=== PATIENT | male | born 1955 | race Caucasian/White ===

== ENCOUNTER → 2018-05-28 07:40 | Outpatient (CLI) | payer BC, OTHER, SELFPAY ==
[2018-05-28 08:38] LABS: Anion Gap 8 (5-15); BUN 22 mg/dL (7-18); Calcium,Total 8.7 mg/dL (8.5-10.1); Chloride 105 mmol/L (98-107); Creatinine, Serum 1.05 mg/dL (0.70-1.30); EST Glomerular Filtration Rate 76 mL/min (>60); Est Glom Filt Rate - Afr Amer 92 mL/min (>60); Glucose 149 mg/dL (74-106); Potassium 3.8 mmol/L (3.5-5.1); Sodium Level 140 mmol/L (136-145)
== END ==
PROVIDERS: Family Provider Family Medicine; PCP Family Medicine; Visit Provider Nurse Practitioner Family
DX: E87.6 Hypokalemia (principal); I10 Essential (primary) hypertension
CPT/HCPCS: 36415; 80048

== ENCOUNTER 2018-09-24 09:05 | Day surgery (SDC) | payer BC, OTHER, SELFPAY ==
[2018-09-17 15:19] VITALS: BMI 39.3
--- NOTE | 2018-09-17 16:15 | RAD_ITS ---
STUDY: X-RAY CHEST REASON FOR EXAM: Male, 63 years old. Generator change. TECHNIQUE: PA and lateral views of the chest. COMPARISON: Comparison is made with prior study dated March 03, 2013. FINDINGS: The lungs are clear and expanded. There is no demonstrated pleural abnormality. Normal size heart. A left-sided dual-chamber pacemaker is seen. Normal mediastinum and carlos alberto. Normal visualized pulmonary arteries. There is atherosclerotic tortuosity of the aortic arch and descending thoracic aorta. Normal visualized thoracic spine. Normal visualized ribs, clavicles, and shoulders. There is no demonstrated abnormality of the visualized soft tissue structures of the upper abdomen. RAD/Chest PA and Lateral IMPRESSION: No acute abnormality is seen. Electronically Signed: Enmanuel Shah MD at 8:25 EST Tel [phone], Service support ,
[2018-09-17 16:32] LABS: Bacteria 0 SEEN /hpf (None Seen); Mucous, Urine 0 SEEN /hpf (<or=2+); Red Blood Cells-Urine 0 SEEN /hpf (0-5); Squamous Epithelial Cells - UA 0 SEEN /hpf (0-5); White Blood Cells 0 SEEN /hpf (0-5)
[2018-09-17 17:08] LABS: Color, Urine Yellow (Yellow); Glucose, Dipstick Normal (Normal); Ketone-Dipstick Negative (Negative); Leukocyte Esterase-Dipstick Negative /ul (Negative); Nitrite-Dipstick Negative (Negative); Occult Blood-Urine Negative /ul (Negative); Protein-Dipstick Negative (Negative); Specific Gravity, Urine 1.015 (1.002-1.030); Urine Bilirubin Dipstick Negative (Negative); Urine Clarity Clear (Clear); Urine Urobilinogen Normal (Normal)
[2018-09-17 17:20] LABS: Hematocrit 46.6 % (40-54); Hemoglobin 15.4 g/dl (13.0-16.5); Mean Corpuscular Hgb 30.3 pg (27.0-32.0); Mean Corpuscular Volume 91.6 fL (80-94); Mean Platelet Vol. 10.4 fl (6.2-12.0); Platelet Count 183 K/mm3 (150-450); RBC Distribution Width CV 14.6 % (11.6-14.6); RBC Distribution Width SD 49.2 fl (35.1-43.9); Red Blood Count 5.09 M/mm3 (4.6-6.2); White Blood Count 11.6 K/mm3 (4.4-11.0)
[2018-09-17 17:22] LABS: Hemoglobin A1c 7.2 % (4.2-6.3)
[2018-09-17 17:31] LABS: Uric Acid 5.5 mg/dL (3.5-7.2)
[2018-09-17 17:39] LABS: Anion Gap 9 (5-15); BUN 21 mg/dL (7-18); BUN/Creat Ratio 23.1 RATIO (10-20); Calcium,Total 9.2 mg/dL (8.5-10.1); Chloride 103 mmol/L (98-107); Creatinine, Serum 0.91 mg/dL (0.70-1.30); EST Glomerular Filtration Rate 90 mL/min (>60); Est Glom Filt Rate - Afr Amer 108 mL/min (>60); Glucose 106 mg/dL (74-106); Potassium 3.6 mmol/L (3.5-5.1); Sodium Level 139 mmol/L (136-145)
[2018-09-17 18:20] LABS: Scan Indicated on CBC? Y/N NO
[2018-09-17 18:25] LABS: International Normalized Ratio 1.1; Prothrombin Time (Protime)PT. 13.8 SECONDS (11.7-14.9)
[2018-09-23 07:54] VITALS: BMI 39.3
--- NOTE | 2018-09-24 11:40 | CL.IE_ITS ---
Patient: LUIS ALFREDO FIGUEROA Study Date: 09/24/2018 Performing: Yosvany Arias MD : 1955 Age: 63 Gender: male PROCEDURES PERFORMED [id number] REMOVAL+REPLACEMENT PACER-DUAL LEAD INDICATIONS Sinoatrial node dysfunction/Sick sinus syndrome PROCEDURE DETAILS The patient was brought to the Catheterization Lab in the postabsorptive nonsedated state. Infor med consent was obtained prior to the procedure. Local anesthetic was given subcutaneously to the le ft upper chest area with Lidocaine 2%. Incision was made to the left upper chest. PPM generator was r emoved. PPM atrial lead (existing) was checked and tested. PPM ventricular lead (existing) was checke d and tested. PPM generator was attached to the lead(s) and inserted into the pocket. Device pocket w as irrigated with antibiotic. Subcutaneous closure was completed with 3-0 Vicryl. Skin closure was co mpleted with 4-0 Vicryl. Steri-strips applied to Lt chest area. The patient tolerated the procedure well. Estimated Blood Loss: 10 ml's IMPLANTED / EX-PLANTED DEVICES IMPLANTED DEVICE(S): PPM Generator - Software Engineering Analyst: [employer], Model # [employer] MRI DR Pacemaker L111 , Serial # [id number] DEVICE PARAMETERS DEVICE PARAMETERS: Mode- DDD Lower rate- 50 Upper rate- 130 CONCLUSIONS / RECOMMENDATIONS Device Conclusions: Successful implantation of a dual chamber pacemaker battery change and replacemen t Device Recommendations: Follow up with Primary Care Physician PROCEDURE MEDICATIONS Fentanyl 50 mcg IV Versed 1 mg IV Versed 1 mg IV Oxygen: 2 L/min via nasal cannula Antibiotic given in appropriate timeframe. Ancef 2 Gm IV @ 09/24/2018 10:39:44 IV Bolus: .9 NaCl 500 ml total 09/24/2018 11:16:12 Signed By Yosvany Arias MD On 09/24/2018 11:39:43 Yosvany Arias MD
--- OUTSIDE RECORDS SUMMARY | 2018-11-28 16:05 | XMS RPT_ITS ---
:1955 Author Organization OHIP Support Name Relationship Address Phone CAROLINA JOSEFA Unavailable [address] + [place] [address] WOOBR Unavailable [address] [place] [address] JOSEFA FIGUEROA Unavailable [address] + [place] [address] WOOBR Unavailable [address] [place] [address] JOSEFA FIGUEROA Unavailable [address] + [place] [address] WOOBR Unavailable [address] [place] [address] JOSEFA FIGUEROA Unavailable [address] + [place] [address] WOOBR Unavailable [address] [place] [address] JOSEFA FIGUEROA Unavailable [address] + [place] [address] WOOBR Unavailable [address] [place] [address] JOSEFA FIGUEROA Unavailable [address] + [place] [address] JOSEFA FIGUEROA Unavailable [address] + [place] [address] JOSEFA FIGUEROA Unavailable [address] + [place] [address] WOOBR Unavailable [address] [place] [address] ISIDRO FIGUEROAORAH Unavailable [address] + [place] [address] WOOBR Unavailable [address] [place] [address] ISIDRO FIGUEROAORAH Unavailable [address] + [place] [address] WOOBR Unavailable [address] [place] [address] ISIDRO FIGUEROAORAH Unavailable [address] + [place] [address] WOOBR Unavailable [address] [place] [address] ISIDRO FIGUEROAORAH Unavailable [address] + [place] [address] WOOBR Unavailable [address] [place] [address] ISIDRO FIGUEROAORAH Unavailable [address] + [place] [address] WOOBR Unavailable [address] [place] [address] Care Team Providers Name Role Phone REA GREGORIO, MIRNA Jewell Attending Unavailable MIRNA LUCIA MD Referring Unavailable SARY JOYCE, DR. ADELINE Alegria Primary Care Unavailable Bonnie Tao Attending Unavailable Christensen, Adeline Referring Unavailable Hugo, Yosvany Attending Unavailable Hugo, [place] Referring Unavailable Christensen, Adeline Primary Care Unavailable Bonnie Tao Attending Unavailable Christensen, Adeline Referring Unavailable RoofAdeline H Attending Unavailable Christensen, Adeline Referring Unavailable Bonnie Tao Attending Unavailable Christensen, Adeline Referring Unavailable Bonnie Tao Attending Unavailable Christensen, Adeline Referring Unavailable Christensen, Adelnie Primary Care Unavailable Cristina Aly Attending Unavailable Roof, Adeline H Attending Unavailable Christensen, Adeline Referring Unavailable Christensen, Adeline Primary Care Unavailable Bonnie Tao Attending Unavailable Christensen, Adeline Referring Unavailable Christensen, Adeline Primary Care Unavailable Bonnie Tao Attending Unavailable Christensen, Adeline Referring Unavailable Christensen, Adeline Primary Care Unavailable Roof, Adeilne H Attending Unavailable Roof, Adeline H Referring Unavailable Christensen, Adeline Primary Care Unavailable PROBLEMS PROBLEMS DATE TYPE CONDITION / CODE ATTENDING STATUS SOURCE 09/24/2018 Unknown I48.0 - Paroxysmal Hugo, Yosvany Active [place] [facility] fibrillation / Hospital I48.0(ICD-10) Repository 09/24/2018 Unknown I49.5 - Sick sinus Hugo, Yosvany Active [place] syndrome / Community I49.5(ICD-10) Hospital Repository 09/24/2018 Unknown Z95.0 - Presence Hugo, Yosvany Active [place] of cardiac [facility] pacemaker / Hospital Z95.0(ICD-10) Repository 09/24/2018 Unknown R55 - Syncope and Hugo, [place] Active [place] collapse / Community R55(ICD-10) Hospital Repository 09/24/2018 Unknown 274.9 - Gout, Hugo, [place] Active [place] unspecified / Community 274.9(ICD-9) Hospital Repository 09/24/2018 Unknown M10.9 - Gout, Hugo, Yosvany Active [place] unspecified / Community M10.9(ICD-10) Hospital Repository 09/24/2018 Unknown 790.21 - Impaired Hugo, Yosvany Active [place] fasting glucose / Community 790.21(ICD-9) Hospital Repository 09/24/2018 Unknown R73.01 - Impaired Hugo, Yosvany Active [place] fasting glucose / Community R73.01(ICD-10) Hospital Repository PROCEDURES PROCEDURES No Procedure Records FoundRESULTS RESULTS PACEMAKER CHECK Observed: 09/21/2018 Status: F Source: [place] 10:07 AM [facility] REPOSITORY [facility] [address] [place] [address]. [address] [place] [address] Pacemaker Check Date of Service: 09/17/18 165 MR#: [id number] Acct: [id number] Name: HEATHERLUIS ALFREDO FAUST Airam Rep #: [id number] : 1955 From: Bonnie Tao Age/Sex: 63/M Location: [facility] [place] Status: Signed Billing Codes Nurse, Teaching, Wound Ck (no charge): Yes 09/17/18 1704 <Electronically signed by Bonnie Tao > Date Bonnie Tao 09/21/18 1007<Electronically signed by Yosvany Arias MD> Amy Signature: Date (if applicable) Yosvany Arias MD CC: CHEST PA AND LATERAL Observed: 09/17/2018 Status: F Source: [place] 4:11 PM [facility] Imaging Services [address] [place] [address] Chest PA and Lateral MR#: [id number] Acct: [id number] Name: LUIS ALFREDO FIGUEROA Rep #: [id number] : 1955 M 63 From: Enmanuel Shah MD PCP: Adeline Christensen MD Status: PRE [facility] [place] Study: Chest PA and Lateral Date of Exam: 09/17/18 Exam# [id number] Ordering Dr: Yosvany Arias MD STUDY: X-RAY CHEST REASON FOR EXAM: Male, 63 years old. Generator change. TECHNIQUE: PA and lateral views of the chest. COMPARISON: Comparison is made with prior study dated March 03, 2013. FINDINGS: The lungs are clear and expanded. There is no demonstrated pleural abnormality. Normal size heart. A left-sided dual-chamber pacemaker is seen. Normal mediastinum and carlos alberto. Normal visualized pulmonary arteries. There is atherosclerotic tortuosity of the aortic arch and descending thoracic aorta. Normal visualized thoracic spine. Normal visualized ribs, clavicles, and shoulders. There is no demonstrated abnormality of the visualized soft tissue structures of the upper abdomen. RAD/Chest PA and Lateral IMPRESSION: No acute abnormality is seen. Electronically Signed: Enmanuel Shah MD at 8:25 EST Tel [phone], Service support , CC: Yosvany Arias MD; Adeline Christensen MD Academic Affairs Manager: Signed 12 LEAD EKG PERFORMED Observed: 09/17/2018 Status: F Source: [place] BY [facility] 3:08 PM [facility] [address] [place] [address] 12 Lead EKG performed by [facility] 09/17/18 1507 MR#: [id number] Acct: [id number] Name: LUIS ALFREDO FIGUEROA Rep #: [id number] : 1955 63 From: Adeline Hitchcock NP-C Attending Dr: Adeline Hitchcock NP Status: DEP AMB Ordering Dr: Adeline Hitchcock Date: 09/17/18 Location: [facility] [place] Sex: M C Admitted: BMS/12 Lead EKG performed by [facility] ECG Report Interpretation Sinus Bradycardia -First degree A-V block Aman = 236-Nonspecific ST depression -Nondiagnostic. ABNORMAL Electronically signed on 09/28/2018 at 13:16 by Yosvany Arias Software Version [id number] 09/28/18 1319 Date Adeline GIORDANO CC: Adeline Christensen MD Date Dictated: 09/17/18 1507 Date Transcribed: 09/17/18 1507 Academic Affairs Manager: INNA Signed URINALYSIS, COMPLETE Collected: 09/17/2018 Status: F Source: [place] 12:30 PM [facility] Order Comment: How was Urine Obtained? OUTREACH REPRESENTATIVE TO SPECIFY TYPE CODE TESTS RESULT OUT OF RANGE REFERENCE UNITS LAB L400.3000 Yellow COLOR Normal Yellow LAB L400.3050 Clear Normal CLARITY Clear LAB L400.3200 Normal mg/dl Normal GLUCOSE, UR Normal LAB L400.3300 Negative mg/dL Normal BILIRUBIN URINE Negative LAB L400.3400 Negative mg/dl Normal KETONE UR Negative LAB L400.3465 1.002-1.030 Normal SP.GR. DIPSTX 1.015 LAB L400.3550 5.0 - 8.0 pH UR Normal 6.0 LAB L400.3600 Negative mg/dl PROT Normal DIPSTX Negative LAB L400.3700 Normal mg/dl Normal UROBILI Normal LAB L400.3750 Negative Normal NITRITE UR Negative LAB L400.3780 Negative /ul Normal OCCULT BLOOD-UR Negative LAB L400.3800 Negative /ul LEUK Normal ESTERASE Negative LAB L400.4050 0-5 /hpf WBC 0 Normal SEEN LAB L400.4100 0-5 /hpf 0 Normal RBC-UA SEEN LAB L400.4150 0-5 /hpf SQUAM 0 Normal EPI SEEN LAB L400.4300 None Seen /hpf 0 Normal BACTERIA SEEN LAB L400.4350 <or=2+ /hpf 0 Normal MUCUS, URINE SEEN Performed By: #### L400.0001 #### [facility] [address] [place], [address] HEMOGLOBIN A1C Collected: 09/17/2018 Status: F Source: [place] 12:30 PM [facility] TYPE CODE TESTS RESULT OUT OF RANGE REFERENCE UNITS LAB L501.9985 4.2-6.3 % High HGB A1C 7.2 Performed By: #### L501.9985, L501.1400 #### [facility] [address] [place], [address] URIC ACID Collected: 09/17/2018 Status: F Source: [place] 12:30 PM [facility] TYPE CODE TESTS RESULT OUT OF RANGE REFERENCE UNITS LAB L501.1400 3.5-7.2 mg/dL Normal URIC 5.5 Result Comment: The drugs N-Acetylcysteine and Metamizole may falsely depress this assay. Performed By: #### L501.9985, L501.1400 #### [facility] [address] [place], [address] BASIC METABOLIC Collected: 09/17/2018 Status: F Source: [place] PROFILE (BMP) 12:30 PM [facility] TYPE CODE TESTS RESULT OUT OF RANGE REFERENCE UNITS LAB L501.0100 74-106 mg/dL Normal GLU 106 Result Comment: Fasting Glucose result from 100 to 125 mg/dL suggests IMPAIRED HOMEOSTASIS per A.D.A. criteria. Please note revised GLUCOSE reference range effective 2017. LAB L501.1000 7-18 mg/dL High BUN 21 LAB L501.1100 0.70-1.30 mg/dL Normal CREAT,SERUM 0.91 Result Comment: The validity of the calculated GFR AND GFRAA in patients over 70 years has not been determined. Clinical correlation is essential. LAB L501.1110 >60 mL/min Normal EST GFR 90 Result Comment: Non- GFR Calc LAB L501.1115 >60 mL/min Normal EST GFR - AA 108 Result Comment: GFR Calc LAB L501.1300 10-20 RATIO High BUN/CRE 23.1 LAB L501.2200 8.5-10.1 mg/dL CA Normal 9.2 LAB L501.5300 136-145 mmol/L NA Normal 139 LAB L501.5600 3.5-5.1 mmol/L K Normal 3.6 LAB L501.5900 98-107 mmol/L CL Normal 103 LAB L501.6100 21.0-32.0 mmol/L Normal CO2 27.0 LAB L501.6200 5-15 Normal GAP 9 Performed By: #### L500.2500 #### [facility] [address] [place], [address] CBC-COMPLETE BLOOD CNT Collected: 09/17/2018 Status: F Source: [place] NO DIFF 12:30 PM [facility] TYPE CODE TESTS RESULT OUT OF RANGE REFERENCE UNITS LAB L100.1000 4.4-11.0 K/mm3 High WBC 11.6 LAB L100.1200 4.6-6.2 M/mm3 Normal RBC 5.09 LAB L100.1300 13.0-16.5 g/dl Normal HGB 15.4 LAB L100.1400 40-54 % Normal HCT 46.6 LAB L100.1500 80-94 fL Normal MCV 91.6 LAB L100.1600 27.0-32.0 pg Normal MCH 30.3 LAB L100.1700 32-36 g/gl Normal MCHC 33.0 LAB L100.1810 11.6-14.6 % Normal RDW CV 14.6 LAB L100.1820 35.1-43.9 fl High RDW SD 49.2 LAB L100.1900 150-450 K/mm3 Normal PLT 183 LAB L100.2000 6.2-12.0 fl Normal MPV 10.4 Performed By: #### L100.0500 #### [facility] [address] [place], [address] PROTHROMBIN TIME W/INR Collected: 09/17/2018 Status: F Source: [place] 12:30 PM [facility] REPOSITORY TYPE CODE TESTS RESULT OUT OF RANGE REFERENCE UNITS LAB L300.4150 11.7-14.9 SECONDS Normal PROTIME 13.8 LAB L300.4200 Normal INR 1.1 Performed By: #### L300.3900 #### [facility] [address] [place], [address] PACEMAKER CHECK Observed: 08/21/2018 Status: F Source: [place] 11:46 AM [facility] [address] [place] [address] Pacemaker Check Date of Service: 08/20/18 0953 MR#: [id number] Acct: [id number] Name: LUIS ALFREDO FIGUEROA Airam Rep #: [id number] : 1955 From: Bonnie Tao Age/Sex: 63/M Location: [facility] [place] Status: Signed Billing Codes PM Device Codes: PM Dev Prog Eval, Dual 08/20/18 0954 <Electronically signed by Bonnie Tao > Date Bonnie Tao 08/21/18 1146<Electronically signed by Yosvany Arias MD> Cosignginny Signature: Date (if applicable) Yosvany Arias MD CC: BASIC METABOLIC Collected: 05/28/2018 Status: F Source: [place] PROFILE (BMP) 7:43 AM [facility] TYPE CODE TESTS RESULT OUT OF RANGE REFERENCE UNITS LAB L501.0100 74-106 mg/dL High GLU 149 Result Comment: Fasting Glucose result greater than or equal to 126 mg/dL suggests DIABETES MELLITUS per A.D.A. criteria. Please note revised GLUCOSE reference range effective 2017. LAB L501.1000 7-18 mg/dL High BUN 22 LAB L501.1100 0.70-1.30 mg/dL Normal CREAT,SERUM 1.05 Result Comment: The validity of the calculated GFR AND GFRAA in patients over 70 years has not been determined. Clinical correlation is essential. LAB L501.1110 >60 mL/min Normal EST GFR 76 Result Comment: Non- GFR Calc LAB L501.1115 >60 mL/min Normal EST GFR - AA 92 Result Comment: GFR Calc LAB L501.1300 10-20 RATIO High BUN/CRE 21.0 LAB L501.2200 8.5-10.1 mg/dL CA Normal 8.7 LAB L501.5300 136-145 mmol/L NA Normal 140 LAB L501.5600 3.5-5.1 mmol/L K Normal 3.8 LAB L501.5900 98-107 mmol/L CL Normal 105 LAB L501.6100 21.0-32.0 mmol/L Normal CO2 27.0 LAB L501.6200 5-15 Normal GAP 8 Performed By: #### L500.2500 #### [facility] [address] [place], [address] PACEMAKER CHECK Observed: 05/22/2018 Status: F Source: [place] 2:06 PM [facility] [address] [place] [address] Pacemaker Check Date of Service: 05/20/18 174 MR#: [id number] Acct: [id number] Name: LUIS ALFREDO FIGUEROA Airam Rep #: [id number] : 1955 From: Bonnie Tao Age/Sex: 63/M Location: [facility] [place] Status: Signed Billing Codes PM Device Codes: PM Dev Prog Hamilton, Dual 05/20/18 1744 <Electronically signed by Bonnie Tao > Date Bonnie Tao 05/22/18 1406<Electronically signed by Yosvany Arias MD> Cosigner Signature: Date (if applicable) Yosvany Arias MD CC: PACEMAKER CHECK Observed: 02/25/2018 Status: F Source: [place] 7:46 AM [facility] [address] [place] [address] Pacemaker Check Date of Service: 02/17/18 1649 MR#: [id number] Acct: [id number] Name: LUIS ALFREDO FIGUEROA Rep #: [id number] : 1955 From: Bonnie Tao Age/Sex: 63/M Location: [facility] Status: Signed Comments Summary Comments: Dual Chamber Pacemaker Evaluation: See attached scanned rpg programmer report. Interrogation shows 23 MS episodes, 0% total time, or 15.9 mins and no VHR episodes since 11/11/17. Stored e-grams show atrial flutter with appropriate MS. Left pectoral pocket/incision w/o s/s of infection or erosion. Pt offers no cardiac complaints. Presenting rhythm shows Sinus Bradycardia @ 57 bpm. DESIGN TEACHER=24%. Estimated battery life <0.5yrs. Lead impedances, sensing and pace/sense thresholds remain stable. No parameter changes made. Counters cleared. Next f/u appt scheduled for in 3 mos d/t device approaching DEVAN. Device Device Date Interviewed: 02/17/18 Follow-up Location: in office Interview Reason: routine follow up Rack Cleaner: gBox Name: Insignia Plus Model: 1298 Serial #: [id number] Implant Date: 02/10/08 Year(s): 10 Implant Physician: Dr. Canelo Sim/[facility] Patient Characteristics Atrial Indication: Paroxysmal atrial fibrillation, sick sinus syndrome Patient Substrate: Syncope Ejection fraction %: 60 to 64 (01/23/2014) By: Echo Underlying rhythm: Sinus rhythm Pacemaker Dependent: No Device Characteristics Device: Dual Chamber Type: Pacemaker Remote Follow-Up: No Device Physical Exam Yes Incision well healed Leads Lead #1 Rack Cleaner Lead 1: [employer] Model Lead 1: 1699TC Serial# Lead 1: [id number] Date Implanted Lead 1: 02/10/08 Position Lead 1: RA Lead #2 Rack Cleaner Lead 2: Guidant Model Lead 2: 4136 Serial# Lead 2: [id number] Date Implanted Lead 2: 02/10/08 Position Lead 2: RV Diagnostics Pacing % RA Pacin % RV Pacin Mode Switching Total # Episodes: 23 % Mode switched: 0 Arrhythmias Non-Sust Episodes: 0 Taco Settings Bradycardia Mode and Timing Settings Pacemaker Mode: DDD Base Rate: 50 bpm Max Track Rate: 130 bpm Max Sensor Rate: 130 bpm Maximum AV Delay: 300 msec Bradycardia Output and Sensitivity Settings Right Atrium: 0.4 msec, 2.0 volts, 0.5 mV sensitivity. Right Ventricle: 0.4 msec, 2.0 volts. Billing Codes PM Device Codes: PM Dev Prog Eval, Dual Assessment AND Plan Problems 1. Presence of cardiac pacemaker Z95.0 Implant February 2008 2. Sick sinus syndrome I49.5 3. Paroxysmal atrial fibrillation I48.0 4. Syncope and collapse R55 02/23/18 1644 <Electronically signed by Bonnie Tao > Date Bonnie Tao 02/25/18 0746<Electronically signed by Yosvany Arias MD> Amy Signature: Date (if applicable) Yosvany Arias MD CC: CARDIOLOGY VISIT Observed: 01/26/2018 Status: F Source: [place] REPORT 9:19 AM [facility] [address] [place] [address] [address] [place] [address] OFFICE VISIT Date of Service: 01/25/18 MR#: [id number] Acct: [id number] Name: LUIS ALFREDO FIGUEROA Rep #: [id number] : 1955 Provider: JAMARI Hitchcock Age/Sex: 62/M Location: [facility] Status: Signed HPI HPI Details: LUIS ALFREDO FIGUEROA, is a 62 M who presents to the office today for a cardiovascular outpatient follow-up. 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 He states after mowing he notices lower blood pressure with systolic in the 90s with lightheadedness and dizziness. Pt denies chest, arm, jaw, or neck discomfort. His exercise tolerance is stable via yardwork. Pt denies symptoms of CHF, palpitations, near syncopal or syncopal episodes. Pt denies worsening edema or claudication issues. Pt. denies orthopnea, PND, fever, chills, blood in urine, blood in stool, myalgia, or unexplainable fatigue. He states some foot numbness. Intake Vital Signs01/25/18 Height 5 ft 7 in 01/25/18 Weight: 253 lb 01/25/18 Body Mass Index (BMI) 39.6 Intake Visit Reasons: 6 M FU Log Roller Required: No Accompanied by: none Is patient in pain?: No Allergies No Known Allergies Allergy (Verified 01/25/18 16:01) Medications [place] Hemifumarate [Tekturna] 150 mg PO QHS 09/13/15 [History Confirmed 01/25/18] Atorvastatin Calcium [Lipitor] 40 mg PO QHS 09/13/15 [History Confirmed 01/25/18] Flecainide [Tambocor] 150 mg PO BID 09/13/15 [History Confirmed 01/25/18] Hydrochlorothiazide [Hctz] 25 mg PO DAILY 09/13/15 [History Confirmed 01/25/18] Metoprolol Tartrate [Lopressor (beta yoav)] 100 mg PO BID 01/07/16 [History Confirmed 01/25/18] Allopurinol 300 mg PO DAILY 09/08/17 [History Confirmed 01/25/18] amlodipine 10 mg tablet 10 mg PO QDAY #30 tab 09/11/17 [Rx Confirmed 01/25/18] lisinopril 40 mg tablet 40 mg PO QDAY #1 tab 10/07/17 [Rx Confirmed 01/25/18] acetaminophen 500 mg tablet 1,000 mg PO Q8 PRN tab 01/25/18 [History] aspirin 325 mg tablet 325 mg PO QDAY tab 01/25/18 [History] potassium chloride ER 20 mEq tablet,extended release(part/cryst) 20 meq PO QDAY 01/25/18 [History Confirmed 01/25/18] Ejection fraction %: 60 to 64 PFSH Medical History Hypokalemia (Chronic) Nicotine abuse (Chronic) Hypertension (Chronic) Palpitations (Chronic) Nonspecific abnormal unspecified cardiovascular function study (Chronic) Encounter for long-term current use of high risk medication (Chronic) White coat syndrome with hypertension (Chronic) Sleep apnea (Chronic) HLD (hyperlipidemia) (Chronic) Sick sinus syndrome (Chronic) Paroxysmal atrial fibrillation (Chronic) Syncope and collapse (Chronic) Chest pain (Acute) Dyspnea (Acute) Shortness of breath (Acute) Surgical History Presence of cardiac pacemaker (Chronic) History of knee replacement (Resolved) Family History Father CAD (coronary artery disease) Myocardial infarction Hypertension Brother Hypertension Cancer CAD (coronary artery disease) Myocardial infarction Social History Smoking Status: Former smoker alcohol intake: current alcohol intake frequency: a few times a month Alcohol type: beer substance use type: does not use caffeine: Yes Type: coffee Number of servings: 2 what type of physical activity do you participate in: none ROS Const Const: Positive for weakness (bilateral knee); negative for fatigue, body ache, fever(s) or chills ENT ENT: Positive for dizziness Cardio Chest Pain: No Palpitations: No Edema: None Muscle aches with walking: None Resp Respiratory: Negative for SOB with activity, SOB at rest, SOB orthopnea\SOB lying down or paroxysmal nocturnal dyspnea GI GI: Negative nausea, black,tarry stools, bright, red blood in stools or vomiting blood/hematemesis : Negative for hematuria or frequent nighttime urination/ nocturia Musc Musc: Positive for muscle weakness (back ); negative for muscle aches/ myalgia Skin Skin: Negative non-healing lesions or rash Neuro Neuro: Positive for weakness (bilateral knee), dizziness and lightheadedness; negative for near syncope, syncope or orthostatic symptoms Endo Endo: Negative for fatigue Allergy Allergy/Immunology: Negative for rash Cardiology Exam Const Appearance: cooperative, healthy appearing, comfortable and no acute distress Nutritional Appearance: obese Orientation: alert, awake and oriented x3 Head Head: normal to inspection Ears: hearing grossly normal bilaterally Nose: external nose normal Face and Sinus: face symmetric Mouth: oral mucosae normal Eyes General: appearance normal, both eyes and all related structures Eyelids: eyelids normal Neck Neck: no JVD and normal visual inspection Carotids: normal carotid upstroke Chest Chest inspection: normal inspection of the chest and normal respiratory effort; negative cough Auscultation: Bilateral: Clear to Auscultation Cardio Rate: regular rate Rhythm: regular rhythm Heart sounds: S1 normal and S2 normal; negative rub or gallop GI GI: normal to inspection and obese Neuro General: alert, awake, oriented x3 and CN's II-XI intact bilaterally Skin Skin: no rashes or lesions noted Extremities Pulses: Normal: Right Posterior Tibial Pulse, Left Posterior Tibial Pulse, Right Radial Pulse, Left Radial Pulse Lower Extremity Edema: None: Bilateral Psych Psychological: normal affect Supplemental Info Pacemaker check from November 2017 showed 79 MS episodes, 0% total time or 3.4 hours, max duration of 14.2 minutes, no VHR episodes, presenting rhythm of AAI pacing at 60 PPM, DESIGN TEACHER=22%, better longevity approximately less than 0.5 years, and lead impedances, sensing and pace/sense thresholds remain stable. Echocardiogram from January 2014 showed an estimate ejection fraction of 60%, normal LV size, mild concentric LVH, mild tricuspid valve insufficiency, RVSP of 32 mmHg, mild to moderately dilated aortic root of 4.5 cm, and when compared to prior study no significant changes. Stress test from March 2013 was a normal exercise myocardial perfusion scan at a moderate to high workload. There was no clinical angina noted, no chest pain noted, and no evidence of ischemia noted. Heart catheterization from February 2008 showed nonobstructive disease in the mid LAD and 25-50% stenosis of proximal RCA. Assessment AND Plan 1. Essential hypertension I10 Plan - PASQUALE Perera Patient's blood pressure initially was elevated and was improved after rechecking. He acknowledges low blood pressure after evening activities such as yardwork. We will adjust the timing of his medication. He will take his hydrochlorothiazide and lisinopril in the morning and his amlodipine after evening yardwork activity. He will continue to monitor his blood pressure and contact our office if he notices continual low blood pressures and/or elevated blood pressures. 2. Paroxysmal atrial fibrillation I48.0 Plan - PASQUALE Perera Patient's most recent pacemaker check from November 2017 showed 79 MS episodes comprising of 0% total time or 3.4 hours. He will continue current medication which include beta-yoav, antiarrhythmic, and aspirin 325 mg. We will continue to monitor this. Orders Orders: 3. Sick sinus syndrome I49.5 Plan - PASQUALE Perera Patient's EKG in office showed sinus bradycardia with first- degree AV block at a rate of 58 bpm. We will not make a medication regimen changes and we will continue to monitor this. 4. Presence of cardiac pacemaker Z95.0 Implant February 2008 Plan - PASQUALE Perera Patient's pacemaker/ICD appears to be functioning appropriately. We will continue to monitor this with routine/scheduled follow-ups. 5. Pure hypercholesterolemia E78.00; E78.0 Plan PASQUALE Nichols Patient will continue current statin medication. Plan Detail Other Medications Discontinued: oxycodone Discontinued Reason: Pt no 5 - 10 mg PO Q4H PRN PRN Mod-Severe PainZ96.652 longer taking (4-10/10) Additional Comments - PASQUALE Perera Discussed the above patient with Dr. Arias, he agrees with the plan of care. Thank you for allowing us to participate in the patients plan of care, if you have any questions please do not hesitate to call. This note was generated using a voice recognition system and there may be incorrect words, spelling or punctuation that were not noted when reviewing the office note prior to saving. Follow Up 7 Months (FUNERAL PLANNER) Coding Level of Care Code Off vis,est,level 3 Diagnoses Essential hypertension I10 Hypertension type: essential hypertension Paroxysmal atrial fibrillation I48.0 Sick sinus syndrome I49.5 Presence of cardiac pacemaker Z95.0 Pure hypercholesterolemia E78.00; E78.0 Hyperlipidemia type: pure hypercholesterolemia Coding Level of Care Code Off vis,est,level 3 Diagnoses Essential hypertension I10 Hypertension type: essential hypertension Paroxysmal atrial fibrillation I48.0 Sick sinus syndrome I49.5 Presence of cardiac pacemaker Z95.0 Pure hypercholesterolemia E78.00; E78.0 Hyperlipidemia type: pure hypercholesterolemia 01/26/18 0800 <Electronically signed by Adeline Hitchcock FOUNDRY SUPERVISOR-C> Date Adeline Hitchcock FOUNDRY SUPERVISOR-C 01/26/18 0919<Electronically signed by Yosvany Arias MD> Cosigner Signature: Date (if applicable) Yosvany Arias MD CC: Adeline Christensen MD 12 LEAD EKG PERFORMED Observed: 01/25/2018 Status: F Source: [place] [facility] 3:56 PM [facility] [address] [place] [address] 12 Lead EKG performed by [facility] 01/25/18 1556 MR#: [id number] Acct: [id number] Name: LUIS ALFREDO FIGUEROA Rep #: [id number] : 1955 62 From: Adeline Hitchcock NP-C Attending Dr: Adeline Hitchcock NP Status: DEP AMB Ordering Dr: Adeline Hitchcock Date: 01/25/18 Location: [facility] [place] Sex: M C Admitted: [facility]/12 Lead EKG performed by [facility] ECG Report Interpretation Sinus Bradycardia -First degree A-V block Aman = 244-consider old anterior infarct. ABNORMAL Electronically signed on 01/27/2018 at 13:16 by Yosvany Arias 01/27/18 1321 Date Adeline Hitchcock FOUNDRY SUPERVISOR-C CC: Adeline Christensen MD Date Dictated: 01/25/181555 Date Transcribed: 01/25/181555 Academic Affairs Manager: INNA Signed PACEMAKER CHECK Observed: 11/26/2017 Status: F Source: [place] 1:31 PM [facility] [address] [place] [address] Pacemaker Check Date of Service: 11/11/17 1115 MR#: [id number] Acct: [id number] Name: LUIS ALFREDO FIGUEROA Rep #: [id number] : 1955 From: Bonnie Toa Age/Sex: 62/M Location: [facility] Status: Signed Comments Summary Comments: Dual Chamber Pacemaker Evaluation: Interrogation shows 79 MS episodes, 0% total time or 3.4 hrs , max duration of episode 14.2 mins and no VHR episodes since 07/28/17. Left pectoral pocket/incision w/o s/s of infection or erosion. Pt offers no cardiac complaints. Presenting rhythm shows AAI pacing @ 60 ppm. DESIGN TEACHER=22%. Battery longevity approx <0.5 yrs. Magnet 90ppm. Lead impedances, sensing and pace/sense thresholds remain stable. No parameter changes made. Counters cleared. Next f/u appt scheduled for in 3 mos. Battery approaching DEVAN. Device Device Date Interviewed: 11/11/17 Follow-up Location: in office Interview Reason: routine follow up Rack Cleaner: gBox Name: Caliper Life Sciencesia Plus Model: 1298 Serial #: [id number] Implant Date: 02/10/08 Year(s): 9 Implant Physician: Dr. Canelo Sim/[facility] Patient Characteristics Atrial Indication: Paroxysmal atrial fibrillation, sick sinus syndrome Patient Substrate: Syncope Ejection fraction %: 60 to 64 (01/23/2014) By: Echo Underlying rhythm: Sinus rhythm Pacemaker Dependent: No Device Characteristics Device: Dual Chamber Type: Pacemaker Remote Follow-Up: No Device Physical Exam Yes Incision well healed Leads Lead #1 Rack Cleaner Lead 1: [employer] Model Lead 1: 1699TC Serial# Lead 1: [id number] Date Implanted Lead 1: 02/10/08 Position Lead 1: RA Lead #2 Rack Cleaner Lead 2: Guidant Model Lead 2: [id number] Serial# Lead 2: [id number] Date Implanted Lead 2: 02/10/08 Position Lead 2: RV Diagnostics Pacing % RA Pacin % RV Pacin Mode Switching Total # Episodes: 79 % Mode switched: 0 Arrhythmias Non-Sust Episodes: 0 Measurements Battery Magnet Rate (bmp): 90 Predicted Remaining Longevity (months or years): 0.5years RA Measurements Signal Amplitude (mV): 2.2 Impedance (Ohms): 340 Threshold Voltage: 1.0 @ PW(ms): 0.4 RV Measurements Signal Amplitude (mV): 8.6 Impedance (Ohms): 610 Threshold Voltage: 0.9 @ PW(ms): 0.4 Taco Settings Bradycardia Mode and Timing Settings Pacemaker Mode: DDD Base Rate: 50 bpm Max Track Rate: 130 bpm Max Sensor Rate: 130 bpm Maximum AV Delay: 300 msec Bradycardia Output and Sensitivity Settings Right Atrium: 0.4 msec, 2.0 volts, 0.5 mV sensitivity. Right Ventricle: 0.4 msec, 2.0 volts. Billing Codes PM Device Codes: PM Dev g Deniseal, Dual 11/26/17 1015 <Electronically signed by Bonnie Tao > Date Bonnie Tao 11/26/17 1331<Electronically signed by Yosvany Arias MD> Cosigner Signature: Date (if applicable) Yosvany Arias MD CC: ALLERGIES ALLERGIES DATE TYPE / CODE NAME / CODE REACTION SEVERITY SOURCE 09/17/2018 Drug No Known Unknown [facility] Allergy/4160 Allergies/F00 [facility] 33473(SNOMED 9677491(RXNOR Repository CT) M) ENCOUNTERS ENCOUNTERS ADMIT/DISCHARGE ACCOUNT NUMBER ADMITTING ENCOUNTER LOCATION SOURCE CLASS 09/30/2018/09/30/19 [id number] Ambulatory BMSBuilding: [place] 19 BMS.[facility] Repository 09/24/2018/09/24/19 [id number] Ambulatory [address] ding:[facility]SP Repository 09/17/2018/09/17/19 [id number] Ambulatory BMSBuilding: [place] 19 BMS.[facility] Repository 09/17/2018/09/17/19 [id number] Ambulatory BMSBuilding: [place] 19 BMS.[facility] Repository 08/19/2018/08/19/20 [id number] Ambulatory BMSBuilding: [place] 18 BMS.[facility] Repository 06/08/2018/09/09/19 [id number] Ambulatory BBuilding:PH [place] 19 Count includes the [facility] Repository 05/28/2018 [id number] Ambulatory [facility] ding:LAB Repository 05/20/2018/05/20/20 [id number] Ambulatory BMSBuilding: [place] 18 BMS.[facility] Repository 02/17/2018/02/18/20 [id number] Ambulatory BMSBuilding: [place] 18 BMS.[facility] Repository 01/25/2018/01/26/20 [id number] Ambulatory BMSBuilding: [place] 18 BMS.[facility] Repository 01/19/2018 [id number] Ambulatory BMS [facility] Repository 11/11/2017/11/12/19 [id number] Ambulatory BMSBuilding: [place] 18 BMS.[facility] Repository PAYERS PAYERS ENCOUNTER GUARANTOR PAYER SUBSCRIBER SOURCE 09/30/2018 LUIS ALFREDO [place] Primary LUIS ALFREDO Bagley [id number] Insurance:ANTHEMPolicy CARLOINADOB: Critical access hospital [place]: [id number] [id number] Repository 22664Ysk: 330) Date:0769-62-83WJ [phone] () [place]4938ZX[place]DD[place], [place] [address]VW: 09/30/2018 Secondary JOSEFA Bagley Insurance:MEDICAL BUKOVITZDOB: [facility] [id number] Hospital Number: Repository [id number] Date:1060-20-65[address] [address]SK: 09/30/2018 Tertiary NOT GIVENUNK [place] Insurance:SELF PAY [facility] Number: Effective Repository Date:2018-09-29 09/24/2018 LUIS ALFREDO Aleg[place] Primary LUIS ALFREDO Alegria [place] [id number] Insurance:ANTHEMPolicy BUKOVITZDOB: Critical access hospital Number: [id number] [id number] Repository [address]Diq: ([phone]) Date:0252-07-04YQ [phone] () [address] [place] [address]GC: 09/24/2018 Secondary JOSEFA M [place] Insurance:MEDICAL BUKOVITZDOB: [facility] [id number] Hospital Number: Repository [id number] Date:9974-24-22EP [address] [place] [address]MG: 09/24/2018 Tertiary NOT GIVENUNK [place] Insurance:SELF PAY [facility] Number: Effective Repository Date:2018-09-03 09/17/2018 LUIS ALFREDO [place] Primary LUIS ALFREDO Alegria [place] [id number] Insurance:ANTHEMPolicy BUKOVITZDOB: Critical access hospital Number: [id number] [id number] Repository [address]Xwh: 330) Date:1465-17-30OK [phone] () [place]857[address]OVHLFHD, [place] [address]FE: 09/17/2018 Secondary Josefa M [place] Insurance:MEDICAL BukovitzDOB: [facility] [id number] Hospital Number: Repository [id number] Date:0684-58-07ED [address] [place] [phone]: 09/17/2018 Tertiary NOT GIVENUNK [place] Insurance:SELF PAY [facility] Number: Effective Repository Date:2018-08-19 09/17/2018 LUIS ALFREDO Alegria Primary LUIS ALFREDO Alegria [place] [id number] Insurance:ANTHEMPolicy BUKOVITZDOB: Critical access hospital Number: [id number] [id number] Repository [address]300[address]Rmd: (330) Date:2332-78-86VG [phone] () [address] [place] [address]TQ: 09/17/2018 Secondary Josefa M [place] Insurance:MEDICAL BukovitzDOB: [facility] [id number] Hospital Number: Repository [id number] Date:5299-55-22DX [address] [place] [address]WT: 09/17/2018 Tertiary NOT GIVENUNK [place] Insurance:SELF PAY [facility] Number: Effective Repository Date:2018-08-19 08/19/2018 LUIS ALFREDO A[place] Primary LUIS ALFREDO Alegria [place] [id number] Insurance:ANTHEMPolicy BUKOVITZDOB: Critical access hospital Number: [id number] [id number] Repository 117[address]Wbz: (330) Date:4749-32-63BX [phone] () [id number] [place] [address]IK: 08/19/2018 Secondary Josefa M [place] Insurance:MEDICAL BukovitzDOB: [facility] [id number] Hospital Number: Repository [id number] Date:1690-54-69UG [address] [place] [address]EW: 08/19/2018 Tertiary NOT GIVENUNK [place] Insurance:SELF PAY [facility] Number: Effective Repository Date:2018-08-19 06/08/2018 LUIS ALFREDO A[place] Primary LUIS ALFREDO [facility] BUKOVITZDOB: Insurance:ANTHEM BLUE BUKOVITZDOB: [facility] [id number] [facility] [id number] [place] [address] Number: [address] [place], [place] [id number] [place], [place] [address]Krg: (330) Date:2018-05-28 73[address]Oxw: 1840-20-61Fugl [phone] ()Tel: ([phone]) Name:[facility] BOX () () [id number] [place] [phone] () [address]NM: 06/08/2018 Secondary [facility] Health Insurance:MEDICAL BUKOVITZDOB: [facility] [id number] Repository Number: [address] [place] [address] [id number] [place], [place] Date:2018-05-28 [address]Kgf: [phone] [id number] [phone] Name:[facility] BOX ()Tel: 000 [address], [place] [phone] (WP) 10[address]FF: 05/28/2018 LUIS ALFREDO [place] Primary LUIS ALFREDO Airam [place] [id number] Insurance:ANTHEMPolicy BUKOVITZDOB: Critical access hospital Number: [id number] [id number] Repository [address]Kir: (330) Date:8305-20-98BW [phone] () 192588GZQIHYZ, [place] [address]FB: 05/28/2018 Secondary Josefa M [place] Insurance:MEDICAL BukovitzDOB: [facility] [id number] Hospital Number: Repository [id number] Date:9931-42-37DN [address] [place] [phone]: 05/28/2018 Tertiary NOT GIVENUNK [place] Insurance:SELF PAY [facility] Number: Effective Repository Date:2018-05-28 05/20/2018 LUIS ALFREDO A[place] Primary LUIS ALFREDO Airam [place] [id number] Insurance:ANTHEMPolicy BUKOVITZDOB: Critical access hospital Number: [id number], [place] [id number] Repository [address]Vhc: 330) Date:4471-67-72PO [phone] () 318740CHXXJNW, [place] [address]GH: 05/20/2018 Secondary Josefa M [place] Insurance:MEDICAL BukovitzDOB: [facility] [id number] Hospital Number: Repository [id number] Date:0003-22-36IZ [address] [place] [address]OH: 05/20/2018 Tertiary NOT GIVENUNK [place] Insurance:SELF PAY [facility] Number: Effective Repository Date:2018-05-20 02/17/2018 LUIS ALFREDO [place] Primary LUIS ALFREDO Alegria [place] [id number] Insurance:ANTHEMPolicy BUKOVITZDOB: Critical access hospital Number: [id number], [place] [id number] Repository [address]Rro: 330) Date:7343-92-14UB [phone] () [id number] [place] [address]YM: 02/17/2018 Secondary Josefa M [place] Insurance:MEDICAL BukovitzDOB: [facility] [id number] Hospital Number: Repository [id number] Date:7234-31-31DZ [address] [place] [address]OE: 02/17/2018 Tertiary NOT GIVENUNK [place] Insurance:SELF PAY [facility] Number: Effective Repository Date:2018-02-17 01/25/2018 LUIS ALFREDO [place] Primary LUIS ALFREDO Alegria [place] [id number] Insurance:ANTHEMPolicy BUKOVITZDOB: Critical access hospital Number: [id number], [place] [id number] Repository [address]Jiq: (330) Date:7826-35-56AJ [phone] () [id number] [place] [address]WD: 01/25/2018 Secondary Josefa M [place] Insurance:MEDICAL BukovitzDOB: [facility] [id number] Hospital Number: Repository [id number] Date:0117-82-07GF [address] [place] [address]GO: 01/25/2018 Tertiary NOT GIVENUNK [place] Insurance:SELF PAY [facility] Number: Effective Repository Date:2018-01-25 01/19/2018 LUIS ALFREDO A[place] Primary LUIS ALFREDO Alegria [place] [id number] Insurance:ANTHEMPolicy BUKOVITZDOB: Community [facility] Number: [id number], [place] [id number] Repository [address]Nmb: (330) Date:0223-81-14EL [phone] () [address] [place] [address]ON: 01/19/2018 Secondary Josefa M [place] Insurance:MEDICAL BukovitzDOB: [facility] [id number] Hospital Number: Repository [id number] Date:4922-78-74FL [address] [place] [address]TR: 01/19/2018 Tertiary NOT GIVENUNK [place] Insurance:SELF PAY [facility] Number: Effective Repository Date:2018-01-19 11/11/2017 LUIS ALFREDO [place] Primary LUIS ALFREDO [place] [id number] Insurance:ANTHEMPolicy BUKOVITZDOB: Critical access hospital Number: [id number], [place] [id number] Repository [address]Odv: (330) Date:1791-29-55SF [phone] () [id number] [place] [address]VF: 11/11/2017 Secondary Josefa M [place] Insurance:MEDICAL BukovitzDOB: [facility] [id number] Hospital Number: Repository [id number] Date:3757-83-16AP [address] [place] [phone]: 11/11/2017 Tertiary NOT GIVENUNK [place] Insurance:SELF PAY [facility] Number: Effective Repository Date:2017-11-09
== END 2018-09-24 13:05 | disposition home or self-care (01) ==
LOC: CLSP 09:06
PROVIDERS: Family Provider Family Medicine; PCP Family Medicine; Referring Provider Internal Medicine Cardiovascular Disease; Visit Provider Internal Medicine Cardiovascular Disease
DX: I49.5 Sick sinus syndrome (principal); I10 Essential (primary) hypertension; I48.0 Paroxysmal atrial fibrillation; G47.33 Obstructive sleep apnea (adult) (pediatric); E78.5 Hyperlipidemia, unspecified; R00.2 Palpitations; E78.00 Pure hypercholesterolemia, unspecified; Z79.899 Other long term (current) drug therapy; Z87.891 Personal history of nicotine dependence; Z95.0 Presence of cardiac pacemaker
CPT/HCPCS: 33228; 36415; 71046; 80048; 81001; 83036; 84550; 85027; 85610; 99152; 99153; J7040; J7050

== ENCOUNTER → 2019-04-04 16:20 | Outpatient (CLI) | payer OTHER, SELFPAY ==
[2018-09-23 07:54] VITALS: BMI 39.3
[2019-04-04 18:13] LABS: BUN 18 mg/dL (7-18); BUN/Creat Ratio 15.5 RATIO (10-20); Calcium,Total 9.3 mg/dL (8.5-10.1); Creatinine, Serum 1.16 mg/dL (0.70-1.30); EST Glomerular Filtration Rate 67 mL/min (>60); Est Glom Filt Rate - Afr Amer 81 mL/min (>60); Glucose 92 mg/dL (74-106); Magnesium 2.1 mg/dL (1.6-2.6); Potassium 3.1 mmol/L (3.5-5.1); Sodium Level 141 mmol/L (136-145)
[2019-04-04 18:14] LABS: Anion Gap 10 (5-15); Chloride 103 mmol/L (98-107)
== END ==
PROVIDERS: Family Provider Family Medicine; PCP Family Medicine; Referring Provider Internal Medicine Cardiovascular Disease; Visit Provider Internal Medicine Cardiovascular Disease
DX: I49.5 Sick sinus syndrome (principal); I48.0 Paroxysmal atrial fibrillation; R55 Syncope and collapse; Z95.0 Presence of cardiac pacemaker
CPT/HCPCS: 36415; 80048; 83735

== ENCOUNTER → 2019-04-07 15:57 | Outpatient (CLI) | payer OTHER, SELFPAY ==
[2019-04-06 16:09] VITALS: BMI 38.5
--- NOTE | 2019-04-07 16:00 | RAD_ITS ---
STUDY: X-RAY - LUMBAR SPINE REASON FOR EXAM: Male, 64 years old. Chronic low back pain TECHNIQUE: 5 view(s) of the lumbar spine were obtained. COMPARISON: None FINDINGS: Normal lumbar lordosis. There is no substantial scoliosis. There is a normal alignment of the vertebrae. Moderate to advanced degenerative disc narrowing at all lumbar levels with extensive spondylitic endplate changes at all levels. Hypertrophic facet joint changes at all levels. Atherosclerotic calcifications of the abdominal aorta and iliac arteries. RAD/L/S Spine Min 4 Views IMPRESSION: Normal alignment of the lumbar spine without fracture deformity, osteolytic or blastic bone lesion. Diffuse advanced degenerative disc narrowing with extensive spondylitic endplate changes at all lumbar levels. Hypertrophic facet arthrosis at all lumbar levels. Electronically Signed: Shikha Moreland MD at 16:25 EDT , Service support ,
== END ==
PROVIDERS: Family Provider Family Medicine; PCP Family Medicine; Referring Provider Family Medicine; Visit Provider Family Medicine
DX: M54.5 Low back pain (principal)
CPT/HCPCS: 72110

== ENCOUNTER 2019-04-09 10:18 | Emergency (ER) | payer OTHER, SELFPAY ==
[2019-04-06 16:09] VITALS: BMI 38.5
[2019-04-09 10:21] VITALS: BP 149/92; PULSE 54; RESP 14; TEMP 36.3; O2SAT 99; BMI 38.8
--- NOTE | 2019-04-09 10:57 | ED.DCSUM_ITS ---
History of Present Illness <Jmain Pierre - Last Filed: 04/09/19 12:53> Detail of Chief Complaint: Blood toilet with normal BM this morning Informant: Patient Onset: Today Current Severity: - - gone Worsened by: Nothing Relieved by: Nothing Narrative: Emanuel is a 64-year-old male who presents with possible GI bleeding. He had a normal bowel movement and voided while sitting on the commode this morning and noted blood in the bowl. His stools normal color. He denies fever or chills or dysuria or abdominal pain or nausea or vomiting. He is been having a low back pain and testicular pain intermittently for months. He recently had a prostate exam by his primary care provider and lumbar x-rays as an outpatient. He has no known history of hemorrhoids. Prior similar symptoms: No Recent Illness/Hospitalization: No <WendyKarina - Last Filed: 04/09/19 18:00> Chief Complaint: GI Bleed Past Medical History <Jamin Pierre - Last Filed: 04/09/19 12:53> Smoking Status: Current some day smoker <WendyKarina - Last Filed: 04/09/19 18:00> - Allergies and Home Meds Allergies/Adverse Reactions: Allergies No Known Allergies Allergy (Verified 04/09/19 10:20) Primary Care Physician: Willis Christensen MD [Primary Care Provider] - Review of Systems General: Denies: Chills, Fever Eyes: Denies: Visual changes - left, Blurred vision - left Cardiovascular: Denies: Chest pain, Palpitations, Heart racing Respiratory: Denies: Dyspnea, Cough, Sputum Gastrointestinal: Reports: - - Bright red blood with normal colored bowel movement. Denies: Abdominal pain, Nausea, Vomiting, Diarrhea, Constipation, Melena, Hematochezia Genitourinary: Denies: Dysuria, Hematuria, Frequency Musculoskeletal: Reports: Back pain - Intermittent back pain times several months Neurological: Denies: Headache, Weakness, Parasthesia <Karina Nguyen - Last Filed: 04/09/19 18:00> Physical Exam Vital Signs/Narrative: Vital Signs Temp Pulse Resp BP Pulse Ox 04/09/19 10:21 97.4 F L 54 L 14 149/92 H 99 <PierreJamin - Last Filed: 04/09/19 12:53> Vital Signs/Narrative: Vital Signs Temp Pulse Resp BP Pulse Ox 04/09/19 10:21 97.4 F L 54 L 14 149/92 H 99 Inital Vital Signs reviewed: Yes General: Well nourished, Well developed, Obese Head: Normocephalic, Atraumatic Eyes: Perrl, EOMI. Negative for: Pale conjunctiva ENT: Moist mucous membranes, No rhinorrhea Neck: Supple, Nontender Cardiovascular: Regular rate, Regular rhythm, No murmurs Respiratory: No distress, CTA bilaterally, Chest nontender Abdomen: Soft, Nontender, Nondistended Rectal: Guaiac positive - Light brown color Back: Nontender, Normal Inspection Extremities: Nontender, No edema Skin: Normal color, No rash. Negative for: Diaphoresis, Pallor Neurological: Alert, Oriented x3 Psychological: Normal affect, Normal Mood <Karina Nguyen - Last Filed: 04/09/19 18:00> Diagnostic/Tx/Re-eval - Medical Decision Making Evaluate this patient with our FORM GRADER OPERATOR. Patient complaining of some rectal bleeding. Denies being lightheaded or dizzy. He is on aspirin but no other blood thinners. Prior colonoscopy 5 or more years ago was unremarkable. No black stool. He does not feel lightheaded or dizzy. Exam unremarkable. Lungs are clear. Heart regular rhythm. Abdomen is soft. Moving all 4 extremities. No edema. This unremarkable. Normal CBC. Normal UA. Hemoccult positive. But no melena . Impression: Stable lower GI bleed Plan outpatient follow-up for colonoscopy. Return if worse. <Jamin Pierre - Last Filed: 04/09/19 12:53> - Medical Decision Making Stools normal color but occult positive for blood. Hemoglobin was 14.5 and BUN 25 with a normal creatinine of 1.01. Urinalysis revealed 25 leukocytes but no red cells. His blood is coming from the rectum but he is hemodynamically stable. He will follow-up with his PCP and gastroenterology. He denied straining at bowel movement and has no known history of hemorrhoids or abdominal pain or change in bowel habits lately he had no further rectal bleeding in the emergency department. He is a stable GI bleed and can follow-up as an outpatient. He was instructed to return for worsening bleeding or pain. He is agreeable to discharge plan and was discharged in stable condition. Patient is stable GI bleed <Karina Nguyen - Last Filed: 04/09/19 18:00> ED Disposition <Jamin Pierre - Last Filed: 04/09/19 12:53> <Karina Nguyen - Last Filed: 04/09/19 18:00> - Plan for ED Patient: Disposition: Home or Assisted Living Diagnosis: Bright red blood per rectum Instructions: RECTAL BLEED, Stable Referrals: Willis Christensen MD [Primary Care Provider] -
[2019-04-09 11:25] LABS: Bacteria 0 SEEN /hpf (None Seen); Mucous, Urine 0 SEEN /hpf (<or=2+); Red Blood Cells-Urine 0 SEEN /hpf (0-5)
[2019-04-09 11:30] LABS: Absolute Lymphocyte Count 1.45 X10^3/uL (0.83-4.51); Absolute Neutrophil Count 5.4 X10^3/uL (2.0-7.7); Basophil# 0.05 X10^3/uL; Basophil% 0.7 % (0-1); Eosinophil# 0.17 X10^3/uL; Eosinophils% 2.2 % (0-5); Hematocrit 42.9 % (40-54); Hemoglobin 14.5 g/dL (13.0-16.5); Lymphocyte # 1.45 X10^3/ul (4.0); Mean Corp Hgb Conc 33.8 g/dL (32-36); Mean Corpuscular Volume 91.7 fL (80-94); Mean Platelet Vol. 10.6 fl (6.2-12.0); Monocyte# 0.56 X10^3/uL; Monocyte% 7.3 % (0-10); NRBC Flagged by Analyzer 0 % (0-5); Neutrophil # 5.38 X10^3/uL (2.7-7.7); Neutrophil % 70.4 % (47-70); Platelet Count 168 K/mm3 (150-450); RBC Distribution Width CV 13.9 % (11.6-14.6); RBC Distribution Width SD 46.4 fl (35.1-43.9); Red Blood Count 4.68 M/mm3 (4.6-6.2); White Blood Count 7.6 K/mm3 (4.4-11.0)
[2019-04-09 11:31] LABS: Color, Urine Yellow (Yellow); Glucose, Dipstick Normal (Normal); Ketone-Dipstick Negative (Negative); Leukocyte Esterase-Dipstick 25 /ul (Negative); Nitrite-Dipstick Negative (Negative); Occult Blood-Urine Negative /ul (Negative); Protein-Dipstick Negative (Negative); Specific Gravity, Urine 1.015 (1.002-1.030); Urine Bilirubin Dipstick Negative (Negative); Urine Clarity Clear (Clear); Urine Urobilinogen Normal (Normal)
[2019-04-09 11:38] LABS: Anion Gap 6 (5-15); BUN 25 mg/dL (7-18); BUN/Creat Ratio 24.8 RATIO (10-20); Calcium,Total 8.9 mg/dL (8.5-10.1); Chloride 106 mmol/L (98-107); Creatinine, Serum 1.01 mg/dL (0.70-1.30); EST Glomerular Filtration Rate 79 mL/min (>60); Est Glom Filt Rate - Afr Amer 96 mL/min (>60); Estimated Creatinine Clearance 69.08 ml/min; Glucose 154 mg/dL (74-106); Potassium 3.9 mmol/L (3.5-5.1); Sodium Level 140 mmol/L (136-145)
[2019-04-09 11:45] LABS: Squamous Epithelial Cells - UA 0-5 SEEN /hpf (0-5); White Blood Cells 0-5 SEEN /hpf (0-5)
[2019-04-09 12:11] LABS: PSA,Total - Annual Screen 0.96 ng/mL (0.00-4.00)
[2019-04-09 13:19] VITALS: BP 143/95; PULSE 60; RESP 18; O2SAT 97
== END 2019-04-09 13:20 | disposition home or self-care (01) ==
PROVIDERS: Emergency Provider Nurse Practitioner; Family Provider Family Medicine; PCP Family Medicine
DX: K92.2 Gastrointestinal hemorrhage, unspecified (principal); E66.9 Obesity, unspecified; F17.200 Nicotine dependence, unspecified, uncomplicated
CPT/HCPCS: 80048; 81001; 82274; 84153; 85025; 99283; A4216; G0103

== ENCOUNTER → 2019-05-13 10:20 | Outpatient (CLI) | payer OTHER, SELFPAY ==
[2019-05-13 11:17] LABS: Anion Gap 7 (5-15); BUN 17 mg/dL (7-18); BUN/Creat Ratio 16.5 RATIO (10-20); Calcium,Total 8.7 mg/dL (8.5-10.1); Chloride 107 mmol/L (98-107); Creatinine, Serum 1.03 mg/dL (0.70-1.30); EST Glomerular Filtration Rate 77 mL/min (>60); Est Glom Filt Rate - Afr Amer 93 mL/min (>60); Glucose 143 mg/dL (74-106); Magnesium 2.1 mg/dL (1.6-2.6); Sodium Level 142 mmol/L (136-145)
== END ==
PROVIDERS: Family Provider Family Medicine; PCP Family Medicine; Referring Provider Internal Medicine Cardiovascular Disease; Visit Provider Internal Medicine Cardiovascular Disease
DX: E87.6 Hypokalemia (principal)
CPT/HCPCS: 36415; 80048; 83735

== ENCOUNTER → 2019-06-16 10:12 | Outpatient (CLI) | payer OTHER, SELFPAY ==
[2019-06-16 12:25] LABS: Absolute Neutrophil Count 5.8 X10^3/uL (2.0-7.7); Basophil# 0.06 X10^3/uL; Basophil% 0.7 % (0-1); Eosinophil# 0.13 X10^3/uL; Eosinophils% 1.6 % (0-5); Hematocrit 43.7 % (40-54); Hemoglobin 14.4 g/dL (13.0-16.5); Lymphocyte % 19.8 % (19-41); Mean Corpuscular Hgb 30.3 pg (27.0-32.0); Mean Platelet Vol. 10.7 fl (6.2-12.0); Monocyte# 0.48 X10^3/uL; Monocyte% 5.9 % (0-10); NRBC Flagged by Analyzer 0 % (0-5); Neutrophil # 5.79 X10^3/uL (2.7-7.7); Neutrophil % 71.6 % (47-70); Platelet Count 174 K/mm3 (150-450); RBC Distribution Width CV 13.7 % (11.6-14.6); RBC Distribution Width SD 46.2 fl (35.1-43.9); Red Blood Count 4.75 M/mm3 (4.6-6.2); White Blood Count 8.1 K/mm3 (4.4-11.0)
[2019-06-16 12:46] LABS: Hemoglobin A1c 6.5 % (4.2-6.3)
[2019-06-16 12:55] LABS: ALB/GLOB Ratio 1.2 RATIO (0.9-2.4); AST(SGOT) 17 U/L (15-37); Alanine Aminotransfer ALT/SGPT 31 U/L (16-61); Albumin, Serum 3.7 g/dL (3.2-5.0); Alkaline Phosphatase 75 U/L (45-117); Anion Gap 6 (5-15); BUN 25 mg/dL (7-18); BUN/Creat Ratio 23.8 RATIO (10-20); Calcium,Total 8.6 mg/dL (8.5-10.1); Chloride 109 mmol/L (98-107); Cholesterol 116 mg/dL (200); Creatinine, Serum 1.05 mg/dL (0.70-1.30); EST Glomerular Filtration Rate 76 mL/min (>60); Est Glom Filt Rate - Afr Amer 91 mL/min (>60); Globulin 3.1 g/dL (2.2-4.2); Glucose 130 mg/dL (74-106); High Density Lipoprotein 47 mg/dL; Magnesium 2.3 mg/dL (1.6-2.6); Potassium 4.1 mmol/L (3.5-5.1); Protein, Total 6.8 g/dL (6.4-8.2); Sodium Level 142 mmol/L (136-145); Thyroid Stim Hormone (TSH) 0.97 uIU/mL (0.358-3.74); Triglycerides 90 mg/dL; Uric Acid 5.3 mg/dL (3.5-7.2); Very Low Density Lipoprotein 18 mg/dL (5-40)
[2019-06-16 16:43] LABS: Microalbumin,Random Urine 12.8 mg/L (NO RANGE EST.); Microalbumin:Creatinine Ratio 8.7 mg/g CRE (<30 mg/g CRE)
== END ==
PROVIDERS: Family Provider Family Medicine; PCP Family Medicine; Referring Provider Family Medicine; Visit Provider Family Medicine
DX: I48.91 Unspecified atrial fibrillation (principal); E11.9 Type 2 diabetes mellitus without complications; E78.00 Pure hypercholesterolemia, unspecified; M10.9 Gout, unspecified
CPT/HCPCS: 36415; 80053; 80061; 82043; 82570; 83036; 83735; 84443; 84550; 85025

== ENCOUNTER → 2019-06-27 10:26 | Outpatient (CLI) | payer OTHER, SELFPAY ==
[2019-06-27 13:04] LABS: Hemoglobin A1c 6.4 % (4.2-6.3)
[2019-06-27 13:07] LABS: Vitamin B12 452 pg/mL (211-911)
[2019-06-27 13:19] LABS: ALB/GLOB Ratio 1.2 RATIO (0.9-2.4); AST(SGOT) 13 U/L (15-37); Alanine Aminotransfer ALT/SGPT 25 U/L (16-61); Albumin, Serum 3.9 g/dL (3.2-5.0); Alkaline Phosphatase 82 U/L (45-117); Anion Gap 6 (5-15); BUN 21 mg/dL (7-18); BUN/Creat Ratio 21.7 RATIO (10-20); Calcium,Total 9.1 mg/dL (8.5-10.1); Chloride 106 mmol/L (98-107); Creatinine, Serum 0.97 mg/dL (0.70-1.30); EST Glomerular Filtration Rate 83 mL/min (>60); Est Glom Filt Rate - Afr Amer 100 mL/min (>60); Globulin 3.3 g/dL (2.2-4.2); Glucose 129 mg/dL (74-106); Potassium 3.9 mmol/L (3.5-5.1); Protein, Total 7.2 g/dL (6.4-8.2); Sodium Level 139 mmol/L (136-145); T4 Free Direct 1.07 ng/dL (0.76-1.46)
[2019-06-29 22:02] LABS: Vitamin B1, Thiamine 144.4 nmol/L (66.5-200.0)
== END ==
PROVIDERS: Family Provider Family Medicine; PCP Family Medicine; Referring Provider Family Medicine; Visit Provider Family Medicine
DX: G62.9 Polyneuropathy, unspecified (principal); E66.9 Obesity, unspecified; E11.9 Type 2 diabetes mellitus without complications; E04.1 Nontoxic single thyroid nodule
CPT/HCPCS: 36415; 80053; 82607; 83036; 84425; 84439

== ENCOUNTER → 2019-06-30 12:16 | Outpatient (CLI) | payer OTHER, SELFPAY ==
--- NOTE | 2019-06-30 12:20 | US_ITS ---
STUDY: THYROID ULTRASOUND REASON FOR EXAM: Male, 64 years old. Left thyroid nodule felt on physical exam. TECHNIQUE: Ultrasound evaluation of the thyroid was performed with real-time and static muller-scale imaging. COMPARISON: None. FINDINGS: RIGHT LOBE: The right lobe of the thyroid gland measures 4.5 x 2.2 x 1.6 cm. There is a slightly heterogeneous echotexture. There are no demonstrated solid, cystic or complex lesions. LEFT LOBE: The left lobe of the thyroid gland measures 3.4 x 1.7 x 1.4 cm. There is a slightly heterogeneous echotexture. There are no demonstrated solid, cystic or complex lesions. ISTHMUS: The isthmus measures 0.2 cm. The regional lymph nodes are normal. US/Thyroid IMPRESSION: Slight heterogeneity throughout the bilateral thyroid lobes, nonspecific otherwise normal ultrasound examination of the thyroid. No distinct nodule, mass or lymphadenopathy seen. Electronically Signed: Laura Jones MD at 5:52 EDT , Service support ,
== END ==
PROVIDERS: Family Provider Family Medicine; PCP Family Medicine; Referring Provider Family Medicine; Visit Provider Family Medicine
DX: E04.1 Nontoxic single thyroid nodule (principal)
CPT/HCPCS: 76536

== ENCOUNTER → 2019-12-20 14:09 | Outpatient (CLI) | payer OTHER, SELFPAY ==
[2019-12-15 09:21] VITALS: BMI 38.8
[2019-12-20 17:25] LABS: Absolute Lymphocyte Count 1.69 X10^3/uL (0.83-4.51); Absolute Neutrophil Count 8.7 X10^3/uL (2.0-7.7); Basophil# 0.06 X10^3/uL; Basophil% 0.5 % (0-1); Eosinophil# 0.18 X10^3/uL; Eosinophils% 1.6 % (0-5); Hemoglobin 14.8 g/dL (13.0-16.5); Lymphocyte # 1.69 X10^3/ul (4.0); Lymphocyte % 14.7 % (19-41); Mean Corp Hgb Conc 32.2 g/dL (32-36); Mean Corpuscular Volume 93.3 fL (80-94); Mean Platelet Vol. 11.3 fl (6.2-12.0); Monocyte# 0.85 X10^3/uL; Monocyte% 7.4 % (0-10); NRBC Flagged by Analyzer 0 % (0-5); Neutrophil # 8.68 X10^3/uL (2.7-7.7); Neutrophil % 75.5 % (47-70); Platelet Count 192 K/mm3 (150-450); RBC Distribution Width CV 15.4 % (11.6-14.6); RBC Distribution Width SD 52.7 fl (35.1-43.9); Red Blood Count 4.93 M/mm3 (4.6-6.2); White Blood Count 11.5 K/mm3 (4.4-11.0)
[2019-12-20 17:44] LABS: ALB/GLOB Ratio 1.2 RATIO (0.9-2.4); AST(SGOT) 20 U/L (15-37); Alanine Aminotransfer ALT/SGPT 34 U/L (16-61); Alkaline Phosphatase 87 U/L (45-117); Anion Gap 7 (5-15); BUN 21 mg/dL (7-18); Calcium,Total 8.8 mg/dL (8.5-10.1); Chloride 105 mmol/L (98-107); Cholesterol 135 mg/dL (200); Creatinine, Serum 0.95 mg/dL (0.70-1.30); EST Glomerular Filtration Rate 84 mL/min (>60); Est Glom Filt Rate - Afr Amer 102 mL/min (>60); Globulin 3.2 g/dL (2.2-4.2); Glucose 85 mg/dL (74-106); High Density Lipoprotein 64 mg/dL; Magnesium 2.2 mg/dL (1.6-2.6); Protein, Total 7.2 g/dL (6.4-8.2); Sodium Level 141 mmol/L (136-145); Triglycerides 69 mg/dL; Very Low Density Lipoprotein 14 mg/dL (5-40)
[2019-12-20 18:36] LABS: Hemoglobin A1c 6.1 % (4.2-6.3)
== END ==
PROVIDERS: PCP Family Medicine; Referring Provider Family Medicine; Visit Provider Family Medicine
DX: I48.91 Unspecified atrial fibrillation (principal); E78.00 Pure hypercholesterolemia, unspecified; E11.9 Type 2 diabetes mellitus without complications
CPT/HCPCS: 36415; 80053; 80061; 83036; 83735; 85025

== ENCOUNTER → 2020-04-05 12:39 | Outpatient (CLI) | payer OTHER, MEDICARE, SELFPAY ==
[2020-04-05 09:57] VITALS: BMI 34.7
[2020-04-05 13:18] LABS: Absolute Lymphocyte Count 1.99 X10^3/uL (0.83-4.51); Absolute Neutrophil Count 9.7 X10^3/uL (2.0-7.7); Basophil# 0.07 X10^3/uL; Basophil% 0.5 % (0-1); Eosinophil# 0.29 X10^3/uL; Eosinophils% 2.2 % (0-5); Hematocrit 49.1 % (40-54); Hemoglobin 15.7 g/dL (13.0-16.5); Lymphocyte # 1.99 X10^3/ul (4.0); Lymphocyte % 15.3 % (19-41); Mean Corpuscular Hgb 29.8 pg (27.0-32.0); Mean Corpuscular Volume 93.3 fL (80-94); Monocyte# 0.85 X10^3/uL; Monocyte% 6.6 % (0-10); NRBC Flagged by Analyzer 0 % (0-5); Neutrophil % 74.9 % (47-70); Platelet Count 203 K/mm3 (150-450); RBC Distribution Width CV 16.9 % (11.6-14.6); RBC Distribution Width SD 55.1 fl (35.1-43.9); Red Blood Count 5.26 M/mm3 (4.6-6.2)
[2020-04-05 13:43] LABS: BNP,B-Type NATRIURETIC PEPTIDE 796.6 pg/mL (0-100)
[2020-04-05 13:47] LABS: Anion Gap 5 (5-15); BUN 26 mg/dL (7-18); BUN/Creat Ratio 26.4 RATIO (10-20); Calcium,Total 8.9 mg/dL (8.5-10.1); Chloride 111 mmol/L (98-107); Creatinine, Serum 0.98 mg/dL (0.70-1.30); EST Glomerular Filtration Rate 81 mL/min (>60); Est Glom Filt Rate - Afr Amer 98 mL/min (>60); Glucose 103 mg/dL (74-106); Potassium 3.8 mmol/L (3.5-5.1); Sodium Level 142 mmol/L (136-145)
== END ==
PROVIDERS: PCP Family Medicine; Referring Provider Nurse Practitioner Family; Visit Provider Nurse Practitioner Family
DX: E78.5 Hyperlipidemia, unspecified (principal); R06.00 Dyspnea, unspecified; I48.0 Paroxysmal atrial fibrillation; I50.9 Heart failure, unspecified; Z95.0 Presence of cardiac pacemaker; I11.0 Hypertensive heart disease with heart failure
CPT/HCPCS: 36415; 80048; 83880; 85025

== ENCOUNTER → 2020-04-24 10:38 | Outpatient (CLI) | payer OTHER, MEDICARE, SELFPAY ==
[2020-04-05 09:57] VITALS: BMI 34.7
[2020-04-19 11:33] LABS: Anion Gap 3 (5-15); BUN 21 mg/dL (7-18); BUN/Creat Ratio 17.9 RATIO (10-20); Calcium,Total 8.6 mg/dL (8.5-10.1); Chloride 110 mmol/L (98-107); Creatinine, Serum 1.17 mg/dL (0.70-1.30); EST Glomerular Filtration Rate 67 mL/min (>60); Est Glom Filt Rate - Afr Amer 80 mL/min (>60); Glucose 111 mg/dL (74-106); Potassium 3.9 mmol/L (3.5-5.1); Sodium Level 143 mmol/L (136-145)
--- NOTE | 2020-04-24 10:40 | ECHOD_ITS ---
Reason For Study: DYSPNEA, SOB Procedure This was a 2D Doppler, Color Flow transthoracic echocardiogram. Exam performed in department. Left Ventricle Normal LV size. The estimated ejection fraction is 37 %. Moderate global left ventricular systolic dysfunction. There is moderate global hypokinesis of the left ventricle. Right Ventricle Normal RV size. ICD or pacer leads identified within the right ventricle. Normal systolic function. Atria The left atrium is moderately enlarged. Normal right atrium. Mitral Valve Normal mitral valve. Mild-Moderate (1-2+) eccentric mitral valve insufficiency. Tricuspid Valve Normal tricuspid valve. Mild tricuspid valve insufficiency. Pulmonary artery systolic pressure is 36 mmHg. Aortic Valve Trisinus/trileaflet aortic valve. Mild (1+) eccentric aortic valve insufficiency. Pulmonic Valve Normal pulmonic valve. Great Vessels Mild to moderately dilated aortic root. The pulmonary artery is normal size. Normal inferior vena cava. Pericardium/Pleural No pericardial effusion. MMode/2D Measurements & Calculations LVIDd: 4.9 cm IVSd: 1.3 cm Ao root diam: 4.6 cm LVIDs: 3.9 cm LVPWd: 1.2 cm RVDd: 3.9 cm FS: 22.2 % LAV(MOD-bp): 68.3 ml LVAd ap4: 41.6 cm2 SV(MOD-sp4): 59.1 ml LAV(MOD-bp) Indexed: 32.3 ml/m2 EDV(MOD-sp4): 162.7 ml LAV(MOD-sp2): 61.1 ml EDV(sp4-el): 166.5 ml LAV(MOD-sp4): 72.9 ml LVAs ap4: 31.8 cm2 ESV(MOD-sp4): 103.6 ml ESV(sp4-el): 105.5 ml EF(MOD-sp4): 36.3 % EF(sp4-el): 36.6 % SV(sp4-el): 61.0 ml LA A4 area: 23.3 cm2 LA dimension(2D): 4.5 cm RA A4 area: 17.1 cm2 Doppler Measurements & Calculations Ao V2 max: 96.7 cm/sec AI max ethan: 370.5 cm/sec LV V1 max: 80.9 cm/sec Ao max P.7 mmHg AI max P.9 mmHg LV V1 max P.6 mmHg AI dec slope: 131.3 cm/sec2 AI P1/2t: 826.5 msec PA V2 max: 67.2 cm/sec PI end-d ethan: 133.1 cm/sec TR max ethan: 281.8 cm/sec TR max P.6 mmHg Interpretation Summary Normal LV size. The estimated ejection fraction is 37 %. Moderate global left ventricular systolic dysfunction. Mild to moderately dilated aortic root. Mild (1+) eccentric aortic valve insufficiency. Mild-Moderate (1-2+) eccentric mitral valve insufficiency. Compared to previous study, the left ventricular systolic function has worsened.. Ordering Physician: Willis Hitchcock/Yosvany Arias Referring Physician: Willis Hitchcock Performed By: Mehnaz Gardner RDCS
== END ==
PROVIDERS: PCP Family Medicine; Referring Provider Nurse Practitioner Family; Visit Provider Nurse Practitioner Family
DX: R06.00 Dyspnea, unspecified (principal); R06.02 Shortness of breath; T82.190A Other mechanical complication of cardiac electrode, initial encounter; I50.9 Heart failure, unspecified
CPT/HCPCS: 36415; 80048; 93306

== ENCOUNTER → 2020-05-16 05:59 | Outpatient (CLI) | payer OTHER, MEDICARE, SELFPAY ==
[2020-04-05 09:57] VITALS: BMI 34.7
--- NOTE | 2020-05-16 17:58 | STRESSREP ---
Stress Test Report Pharmacologic myocardial perfusion stress test. 65-year-old man with a history of hypertension, paroxysmal atrial fibrillation status post pacemaker placement. Stress protocol: Resting EKG demonstrates sinus rhythm with a rate of 70 bpm ventricular paced. Resting blood pressure was 122/88 mmHg. 0.4 mg of regadenoson was infused per usual protocol followed by rapid venous saline flush injection continuous EKG monitoring was performed. At rest there were no ST or T wave changes noted to suggest abnormal flow reserve and at peak infusion nonspecific ST-T wave changes were noted with no meet the criteria for abnormal flow reserve. The final blood pressure was 122/88. Myocardial perfusion protocol. 11.6 mCi of technetium 99m sestamibi was injected at rest. 0.4 mg of regadenoson was infused per usual protocol. At peak infusion 33.3 mCi of technetium 99m sestamibi was injected stress images were obtained stress and rest images were reconstructed in comparing the short axis vertical long horizontal long axis. Perfusion SPECT analysis: Review of the images demonstrate normal uptake of tracer noted in all areas of the myocardium except for the apex on the stress and resting images. A previous apical infarct cannot be completely excluded. No obvious ischemia is noted. Conclusion: Normal pharmacologic myocardial perfusion stress test.
== END ==
PROVIDERS: PCP Family Medicine; Referring Provider Nurse Practitioner Family; Visit Provider Nurse Practitioner Family
DX: R07.9 Chest pain, unspecified (principal); I50.23 Acute on chronic systolic (congestive) heart failure; I42.8 Other cardiomyopathies; T82.190A Other mechanical complication of cardiac electrode, initial encounter; Z95.0 Presence of cardiac pacemaker; I47.1 Supraventricular tachycardia; E87.6 Hypokalemia; R00.2 Palpitations; E78.5 Hyperlipidemia, unspecified; I49.5 Sick sinus syndrome; I48.0 Paroxysmal atrial fibrillation; F17.200 Nicotine dependence, unspecified, uncomplicated; I11.0 Hypertensive heart disease with heart failure
CPT/HCPCS: 78452; 93017; A9500; A4216; J2785

== ENCOUNTER → 2020-05-21 11:57 | Outpatient (CLI) | payer OTHER, MEDICARE, SELFPAY ==
[2020-05-21 09:07] VITALS: BMI 34.6
[2020-05-21 14:19] LABS: Anion Gap 7 (5-15); BUN 26 mg/dL (7-18); Calcium,Total 9.2 mg/dL (8.5-10.1); Chloride 105 mmol/L (98-107); Creatinine, Serum 1.04 mg/dL (0.70-1.30); EST Glomerular Filtration Rate 76 mL/min (>60); Est Glom Filt Rate - Afr Amer 92 mL/min (>60); Glucose 89 mg/dL (74-106); Potassium 3.7 mmol/L (3.5-5.1); Sodium Level 141 mmol/L (136-145)
== END ==
PROVIDERS: PCP Family Medicine; Referring Provider Nurse Practitioner Family; Visit Provider Nurse Practitioner Family
DX: I42.8 Other cardiomyopathies (principal); Z79.899 Other long term (current) drug therapy
CPT/HCPCS: 36415; 80048

== ENCOUNTER 2020-05-31 06:41 | Day surgery (SDC) | payer OTHER, MEDICARE, SELFPAY ==
[2020-05-21 09:07] VITALS: BMI 34.6
--- NOTE | 2020-05-29 15:25 | RAD_ITS ---
STUDY: X-RAY CHEST REASON FOR EXAM: Male, 65 years old. Pre op heart cath TECHNIQUE: PA and lateral views of the chest. COMPARISON: September 17, 2018 chest x-ray FINDINGS: There is a left-sided pacer with leads overlying the right atrium and ventricle. Lung markings are stable since prior study there is no visualized acute focal infiltrate. There is no demonstrated pleural abnormality. There is borderline cardiomegaly. Normal mediastinum and carlos alberto. Normal visualized pulmonary arteries. There is tortuosity of the aortic arch and descending thoracic aorta. There are diffuse degenerative changes of the visualized thoracic spine. Normal visualized ribs, clavicles, and shoulders. There is no demonstrated abnormality of the visualized soft tissue structures of the upper abdomen.
[2020-05-29 15:58] LABS: Absolute Lymphocyte Count 1.74 X10^3/uL (0.83-4.51); Absolute Neutrophil Count 7.3 X10^3/uL (2.0-7.7); Basophil# 0.05 X10^3/uL; Basophil% 0.5 % (0-1); Eosinophil# 0.16 X10^3/uL; Eosinophils% 1.6 % (0-5); Hematocrit 46.4 % (40-54); Hemoglobin 15.1 g/dL (13.0-16.5); Lymphocyte # 1.74 X10^3/ul (4.0); Lymphocyte % 17.6 % (19-41); Mean Corp Hgb Conc 32.5 g/dL (32-36); Mean Corpuscular Hgb 30.4 pg (27.0-32.0); Mean Corpuscular Volume 93.5 fL (80-94); Monocyte# 0.67 X10^3/uL; Monocyte% 6.8 % (0-10); NRBC Flagged by Analyzer 0 % (0-5); Neutrophil # 7.25 X10^3/uL (2.7-7.7); Neutrophil % 73.1 % (47-70); Platelet Count 196 K/mm3 (150-450); RBC Distribution Width CV 15.8 % (11.6-14.6); RBC Distribution Width SD 53.5 fl (35.1-43.9); Red Blood Count 4.96 M/mm3 (4.6-6.2); White Blood Count 9.9 K/mm3 (4.4-11.0)
[2020-05-30 07:59] VITALS: BMI 34.6
--- NOTE | 2020-05-30 12:09 | PCM.HP.BLA ---
History and Physical Date of Admission: 05/31/20 Details: LUIS ALFREDO FIGUEROA, is a 65 M who presents to the office today for a cardiovascular outpatient follow-up. 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 Gray at [facility] on 11/29/2019, minimal coronary artery disease, and REYMUNDO with CPAP therapy. He presented for routine pacemaker check previously and was noted to have short runs of atrial tachyarrhythmias. His potassium was also noted to be low and he was started on potassium replacement. He expressed shortness of breath at last office visit. He underwent echocardiogram on 04/24/2020. This showed an ejection fraction of 37%. His echocardiogram in January 2014 showed an ejection fraction of 60%. He proceeded with a stress test. This was negative for ischemia. He does acknowledge improvement in his shortness of breath since diuretic therapy. He does acknowledge that his activity level has remained relatively low. He continues to have shortness of breath initially when lying flat and initiating CPAP therapy. Pt denies chest, arm, jaw, or neck discomfort. His exercise tolerance is stable. Pt denies symptoms of lightheadedness, dizziness, near syncopal or syncopal episodes. Pt denies edema or claudication issues. Pt. denies orthopnea, PND, fever, chills, chronic cough, blood in urine, blood in stool, myalgia, or unexplainable fatigue. Both he and feel that symptoms have progressed since 2019 when his generator was changed. Given his reduced ejection fraction, it was recommended to undergo a heart catheterization to evaluate coronary artery disease component. He presents today for such testing. Intake Vital Signs: See EMR Intake Visit Reasons: [facility] Collection Administrator Required: No Is patient in pain?: No Allergies No Known Allergies Allergy (Verified 05/21/20 09:07) Medications See EMR [facility] Social History (Updated 05/21/20 @ 12:08 by Willis Hitchcock BLUEPRINT MAKER, BLUEPRINT MAKER-C) alcohol intake: current alcohol intake frequency: a few times a month Alcohol type: beer substance use type: does not use caffeine: Yes Type: coffee Number of servings: 2 what type of physical activity do you participate in: none ROS Const Const: Negative for fatigue, weakness, body ache, fever(s) or chills ENT ENT: Negative for dizziness Cardio Chest Pain: No Palpitations: Yes Edema: None Muscle aches with walking: None Resp Respiratory: Positive for SOB with activity (Improving) and SOB orthopnea\SOB lying down (Unchanged); negative for SOB at rest, Cough or paroxysmal nocturnal dyspnea GI GI: Negative nausea, vomiting blood/hematemesis, bright, red blood in stools or black,tarry stools : Negative for hematuria or frequent nighttime urination/ nocturia Musc Musc: Negative for muscle aches/ myalgia Skin Skin: Negative non-healing lesions or rash Neuro Neuro: Negative for dizziness or weakness Endo Endo: Negative for fatigue Allergy Allergy/Immunology: Negative for rash Cardiology Exam Const Appearance: cooperative, healthy appearing, comfortable and no acute distress Nutritional Appearance: well nourished and obese Orientation: alert, awake and oriented x3 Head Head: normal to inspection Ears: hearing grossly normal bilaterally Nose: external nose normal Face and Sinus: face symmetric Mouth: oral mucosae normal Eyes General: appearance normal, both eyes and all related structures Eyelids: eyelids normal EOM: EOM intact bilaterally Neck Neck: normal visual inspection and no JVD Carotids: normal carotid upstroke Chest Chest inspection: normal inspection of the chest, symmetric chest movement and normal respiratory effort; negative cough Auscultation: Bilateral: Clear to Auscultation Cardio Rate: regular rate Rhythm: regular rhythm Heart sounds: S1 normal and S2 normal; negative rub, gallop or murmur GI GI: normal to inspection and obese Neuro General: alert, awake, oriented x3 and CN's II-XI intact bilaterally Skin Skin: no rashes or lesions noted Extremities Pulses: Normal: Right Posterior Tibial Pulse, Left Posterior Tibial Pulse, Right Radial Pulse, Left Radial Pulse Lower Extremity Edema: None: Bilateral Psych Psychological: normal affect Assessment & Plan 1. Non-ischemic cardiomyopathy I42.8 Plan Patient's most recent echocardiogram from April 2020 showed an ejection fraction of 37%. He appeared to be in [place] [employer] functional during office appointment on 05/21/2020. However, his activity level has been relatively low. The exact etiology for reduced ejection fraction is unclear at this time. He does acknowledge as strong family history of CHF without obvious etiology. He does acknowledge since reducing his oral intake that his breathing has improved. At this time, he will continue current medical therapy which includes lisinopril, metoprolol tartrate, Lasix, and potassium supplement. He will proceed with heart catheterization to evaluate further. Based on results, further recommendation be made. Alternative phone number: [phone] 2. Paroxysmal atrial tachycardia I47.1 Plan His most recent dual-chamber pacemaker evaluation did reveal 12,298 mode switch episodes comprising of 3% total time. At this time, he will continue current medical therapy which includes flecainide and Eliquis. We will continue to monitor. This was not thought to be the main source of his reduced ejection fraction given that it is comprising at a low amount of 3% total time. 3. Presence of permanent cardiac pacemaker Z95.0 Implant 02/13/2008, Gen change 09/24/18 Plan Remote dual-chamber pacemaker evaluation from 05/03/2020 showed 12,298 mode switch episodes, 3% total time, no NSVT episodes since 01/10/2020. Stored electrograms available for review for mode switch episodes show frequent short bursts of PAT 2 to 6 seconds in duration. Longest episode of 13 seconds. Ventricular paced 98%. Atrial paced 25%. Estimated battery life 6 years. Patient's pacemaker/ICD appears to be functioning appropriately. We will continue to monitor this with routine/scheduled follow-ups. 4. Essential (primary) hypertension I10 Plan Patient's blood pressure is well-controlled. We will continue to monitor. We will not make any medication regimen changes. 5. Hyperlipidemia, unspecified hyperlipidemia type E78.5 Plan Lipid panel from 12/20/2019 showed cholesterol: 135, HDL: 64, LDL: 57, and triglycerides: 69. He will continue current statin medication. Additional Comments Thank you for allowing us to participate in the patients plan of care, if you have any questions please do not hesitate to call. This note was generated using a voice recognition system and there may be incorrect words, spelling or punctuation that were not noted when reviewing the office note prior to saving. Supplemental Info Supplemental Information Echocardiogram from 04/24/2020: Interpretation Summary Normal LV size. The estimated ejection fraction is 37 %. Moderate global left ventricular systolic dysfunction. Mild to moderately dilated aortic root. Mild (1+) eccentric aortic valve insufficiency. Mild-Moderate (1-2+) eccentric mitral valve insufficiency. Compared to previous study, the left ventricular systolic function has worsened. Echocardiogram from 01/23/2014: Interpretation Summary Normal LV size. Left ventricular systolic function is normal. The estimated ejection fraction is 60 %. Mild concentric left ventricular hypertrophy. Mild (1+) tricuspid valve insufficiency. Pulmonary artery systolic pressure is 32 mmHg. Mild to moderately dilated aortic root. Compared to prior study, there is no significant change. Stress test from 05/16/2020: Conclusion: Normal pharmacologic myocardial perfusion stress test. Heart catheterization from February 2008 showed nonobstructive disease in the mid LAD and 25-50% stenosis of proximal RCA. Labs LDL Cholesterol 57 mg/dL (0-130) 12/20/19 HDL Cholesterol 64 mg/dL (40-) 12/20/19 Triglycerides 69 mg/dL (-199) 12/20/19 VLDL Cholesterol 14 mg/dL (5-40) 12/20/19 Diagnostics Echocardiogram 04/24/20 Stress Test Nuclear Medicine 05/16/20 Stress Test 05/16/20 Pacemaker Check 05/03/20
--- NOTE | 2020-05-31 07:01 | HP_ITS ---
HPI HPI History of Present Illness Details: LUIS ALFREDO FIGUEROA, is a 65 M who presents to the office today for a cardiovascular outpatient follow-up. 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 Grya at [facility] on 11/29/2019, minimal coronary artery disease, and REYMUNDO with CPAP therapy. He presented for routine pacemaker check previously and was noted to have short runs of atrial tachyarrhythmias. His potassium was also noted to be low and he was started on potassium replacement. He expressed shortness of breath at last office visit. He underwent echocardiogram on 04/24/2020. This showed an ejection fraction of 37%. His echocardiogram in January 2014 showed an ejection fraction of 60%. He proceeded with a stress test. This was negative for ischemia. He does acknowledge improvement in his shortness of breath since diuretic therapy. He does acknowledge that his activity level has remained relatively low. He continues to have shortness of breath initially when lying flat and initiating CPAP therapy. Pt denies chest, arm, jaw, or neck discomfort. His exercise tolerance is stable. Pt denies symptoms of lightheadedness, dizziness, near syncopal or syncopal episodes. Pt denies edema or claudication issues. Pt. denies orthopnea, PND, fever, chills, chronic cough, blood in urine, blood in stool, myalgia, or unexplainable fatigue. Both he and feel that symptoms have progressed since 2019 when his generator was changed. 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 Is patient in pain?: No Allergies No Known Allergies Allergy (Verified 05/21/20 09:07) Medications Allopurinol 300 mg PO DAILY 09/08/17 [History Confirmed 05/21/20] meloxicam 7.5 mg tablet 7.5 mg PO DAILY 04/06/19 [History Confirmed 05/21/20] apixaban 5 mg tablet 5 mg PO BID #60 tab 12/15/19 [Rx Confirmed 05/21/20] aspirin 81 mg tablet,delayed release 81 mg PO QDAY #90 tab 12/15/19 [Rx Confirmed 05/21/20] Handicap Placard 1 unit .ROUTE DAILY #1 unit 04/05/20 [Rx Confirmed 04/05/20] pyridoxine (vitamin B6) 100 mg tablet 100 mg PO DAILY 04/05/20 [History Confirmed 05/21/20] tizanidine 4 mg tablet 4 mg PO QHS PRN 04/05/20 [History Confirmed 05/21/20] furosemide 40 mg tablet 40 mg PO .COMPLEX #270 tab 04/12/20 [Rx Confirmed 05/21/20] aliskiren 150 mg tablet 150 mg PO QHS #90 tab 04/24/20 [Rx Confirmed 05/21/20] atorvastatin 40 mg tablet 40 mg PO QHS #90 tab 04/24/20 [Rx Confirmed 05/21/20] flecainide 150 mg tablet 150 mg PO BID #180 tab 04/24/20 [Rx Confirmed 05/21/20] lisinopril 40 mg tablet 40 mg PO QDAY #90 tab 04/24/20 [Rx Confirmed 05/21/20] metoprolol tartrate 100 mg tablet 100 mg PO BID #180 tab 04/24/20 [Rx Confirmed 05/21/20] potassium chloride 20 mEq tablet,extended release(part/cryst) 60 meq PO DAILY #270 tab 04/24/20 [Rx Confirmed 05/21/20] amlodipine 5 mg tablet 5 mg PO QDAY tab 05/21/20 [History] [facility] Social History (Updated 05/21/20 @ 12:08 by Willis Hitchcock MOTION DESIGNER, MOTION DESIGNER-C) alcohol intake: current alcohol intake frequency: a few times a month Alcohol type: beer substance use type: does not use caffeine: Yes Type: coffee Number of servings: 2 what type of physical activity do you participate in: none ROS Const Const: Negative for fatigue, weakness, body ache, fever(s) or chills ENT ENT: Negative for dizziness Cardio Chest Pain: No Palpitations: Yes Edema: None Muscle aches with walking: None Resp Respiratory: Positive for SOB with activity (Improving) and SOB orthopnea\SOB lying down (Unchanged); negative for SOB at rest, Cough or paroxysmal nocturnal dyspnea GI GI: Negative nausea, vomiting blood/hematemesis, bright, red blood in stools or black,tarry stools : Negative for hematuria or frequent nighttime urination/ nocturia Musc Musc: Negative for muscle aches/ myalgia Skin Skin: Negative non-healing lesions or rash Neuro Neuro: Negative for dizziness or weakness Endo Endo: Negative for fatigue Allergy Allergy/Immunology: Negative for rash Cardiology Exam Const Appearance: cooperative, healthy appearing, comfortable and no acute distress Nutritional Appearance: well nourished and obese Orientation: alert, awake and oriented x3 Head Head: normal to inspection Ears: hearing grossly normal bilaterally Nose: external nose normal Face and Sinus: face symmetric Mouth: oral mucosae normal Eyes General: appearance normal, both eyes and all related structures Eyelids: eyelids normal EOM: EOM intact bilaterally Neck Neck: normal visual inspection and no JVD Carotids: normal carotid upstroke Chest Chest inspection: normal inspection of the chest, symmetric chest movement and normal respiratory effort; negative cough Auscultation: Bilateral: Clear to Auscultation Cardio Rate: regular rate Rhythm: regular rhythm Heart sounds: S1 normal and S2 normal; negative rub, gallop or murmur GI GI: normal to inspection and obese Neuro General: alert, awake, oriented x3 and CN's II-XI intact bilaterally Skin Skin: no rashes or lesions noted Extremities Pulses: Normal: Right Posterior Tibial Pulse, Left Posterior Tibial Pulse, Right Radial Pulse, Left Radial Pulse Lower Extremity Edema: None: Bilateral Psych Psychological: normal affect Assessment & Plan 1. Non-ischemic cardiomyopathy I42.8 Plan Patient's most recent echocardiogram from April 2020 showed an ejection fraction of 37%. He appears to be in [place] [employer] functional class I today. However, his activity level has been relatively low. The exact etiology for reduced ejection fraction is unclear at this time. He does acknowledge as strong family history of CHF without obvious etiology. He does acknowledge since reducing his oral intake that his breathing has improved. At this time, he will continue current medical therapy which includes lisinopril, metoprolol tartrate, Lasix, and potassium supplement. He will undergo a BMP today to ensure that his kidney function and electrolytes are stable. Based on results, further recommendation be made. Alternative phone number: [phone] Orders Orders: Basic Metabolic Profile (BMP) Today 2. Paroxysmal atrial tachycardia I47.1 Plan His most recent dual-chamber pacemaker evaluation did reveal 12,298 mode switch episodes comprising of 3% total time. At this time, he will continue current medical therapy which includes flecainide and Eliquis. We will continue to monitor. 3. Presence of permanent cardiac pacemaker Z95.0 Implant 02/13/2008, Gen change 09/24/18 Plan Remote dual-chamber pacemaker evaluation from 05/03/2020 showed 12,298 mode switch episodes, 3% total time, no NSVT episodes since 01/10/2020. Stored electrograms available for review for mode switch episodes show frequent short bursts of PAT 2 to 6 seconds in duration. Longest episode of 13 seconds. Ventricular paced 98%. Atrial paced 25%. Estimated battery life 6 years. Patient's pacemaker/ICD appears to be functioning appropriately. We will continue to monitor this with routine/scheduled follow-ups. 4. Essential (primary) hypertension I10 Plan Patient's blood pressure is well-controlled. We will continue to monitor. We will not make any medication regimen changes. 5. Hyperlipidemia, unspecified hyperlipidemia type E78.5 Plan Lipid panel from 12/20/2019 showed cholesterol: 135, HDL: 64, LDL: 57, and triglycerides: 69. He will continue current statin medication. Plan Detail Other Orders Orders: Basic Metabolic Profile (BMP) Today Z79.899 Additional Comments Thank you for allowing us to participate in the patients plan of care, if you have any questions please do not hesitate to call. This note was generated using a voice recognition system and there may be incorrect words, spelling or punctuation that were not noted when reviewing the office note prior to saving. Coding Level of Care Code Off vis,est,level 3 Diagnoses Non-ischemic cardiomyopathy I42.8 Paroxysmal atrial tachycardia I47.1 Presence of permanent cardiac pacemaker Z95.0 Essential (primary) hypertension I10 Hyperlipidemia, unspecified hyperlipidemia type E78.5 ??Hyperlipidemia type: unspecified Coding Level of Care Code Off vis,est,level 3 Diagnoses Non-ischemic cardiomyopathy I42.8 Paroxysmal atrial tachycardia I47.1 Presence of permanent cardiac pacemaker Z95.0 Essential (primary) hypertension I10 Hyperlipidemia, unspecified hyperlipidemia type E78.5 ??Hyperlipidemia type: unspecified Supplemental Info Supplemental Information Echocardiogram from 04/24/2020: Interpretation Summary Normal LV size. The estimated ejection fraction is 37 %. Moderate global left ventricular systolic dysfunction. Mild to moderately dilated aortic root. Mild (1+) eccentric aortic valve insufficiency. Mild-Moderate (1-2+) eccentric mitral valve insufficiency. Compared to previous study, the left ventricular systolic function has worsened. Echocardiogram from 01/23/2014: Interpretation Summary Normal LV size. Left ventricular systolic function is normal. The estimated ejection fraction is 60 %. Mild concentric left ventricular hypertrophy. Mild (1+) tricuspid valve insufficiency. Pulmonary artery systolic pressure is 32 mmHg. Mild to moderately dilated aortic root. Compared to prior study, there is no significant change. Stress test from 05/16/2020: Conclusion: Normal pharmacologic myocardial perfusion stress test. Heart catheterization from February 2008 showed nonobstructive disease in the mid LAD and 25-50% stenosis of proximal RCA. Labs LDL Cholesterol 57 mg/dL (0-130) 12/20/19 HDL Cholesterol 64 mg/dL (40-) 12/20/19 Triglycerides 69 mg/dL (-199) 12/20/19 VLDL Cholesterol 14 mg/dL (5-40) 12/20/19 Diagnostics Echocardiogram 04/24/20 Stress Test Nuclear Medicine 05/16/20 Stress Test 05/16/20 Pacemaker Check 05/03/20
--- NOTE | 2020-05-31 08:45 | CL.D_ITS ---
Patient Name: LUIS ALFREDO FIGUEROA Study Date: 05/31/2020 Performing: Yosvany Arias MD Ht: 66.92 inches 170 cm : 1955 Wt: 220.46 lbs 100 kg Age: 65 Gender: male BSA: 2.11 PROCEDURE(S) PERFORMED [id number]/LV CLINICAL PROFILE AND INDICATIONS Indications: Cardiomyopathy Heart Failure: NYHA Class: 1, Newly Diagnosed: Yes, Heart Failure Type: Systolic Stress/Imaging Date: 05/21/2020Stress Test with SPECT MPI: Negative CAD Presentations: No Sxs, no angina. CONCLUSIONS Normal coronary arteries Cardiomyopathy: Dilated RECOMMENDATIONS Medical therapy DESCRIPTION OF PROCEDURE The patient arrived to the procedure lab. The risks and benefits of the procedure as well as a full d escription of our services here and current unavailability of surgical backup were fully explained to the patient and/or their significant other prior to the catheterization. The Timeout was completed, verifying the correct patient and procedure. The patient's procedural site was prepped and draped in the usual fashion. Local anesthetic was given subcutaneously to right radial region with Lidocaine 2% . Using a modified Seldinger technique, arterial access was obtained via the right radial artery, a 6 Fr sheath was inserted. Left Coronary Artery selective angiography was performed in multiple views u sing a 5 Fr. 4.0 [place] catheter. Right Coronary Artery selective angiography was then performed in mu ltiple views using a 5 Fr. JR 5 catheter. Left Ventriculography was performed in AARON projection using a 5 Fr. Pigtail catheter. LV to AO pullback pressures were then recorded.The arterial sheath was pulled and a TR Band was applied for hemostasis w/ 11ml air CORONARY ANGIOGRAPHY DOMINANCE: Right Dominant LEFT HEART ASSESSMENT Left Ventricular Ejection Fraction: by LV Gram 35 % Global Hypokinesis - Moderate Depressed Left Ventricular systolic function LEFT MAIN: Angiographically normal LEFT ANTERIOR DESCENDING ARTERY: Angiographically normal CIRCUMFLEX ARTERY: Angiographically normal RIGHT CORONARY ARTERY: Angiographically normal COMPLICATIONS No Complications PROCEDURE MEDICATIONS Versed 1 mg IV Fentanyl 50 mcg IV Versed 1 mg IV Oxygen: 2 L/min via nasal cannula SUMMARY OF HEMODYNAMIC DATA Time AIR REST ECG 07:10:44 AO 109/63 (81) SA 08:09:38 LV 102/-4, 1 08:26:36 LV 106/-2, 3 08:26:42 LV 101/0, 4 08:27:25 LVp 105/-2, 6 08:27:34 AOp 110/57 (77) 08:27:39 Signed By Yosvany Arias MD On 05/31/2020 8:45:10 AM Yosvany Arias MD
== END 2020-05-31 10:10 | disposition home or self-care (01) ==
PROVIDERS: PCP Family Medicine; Referring Provider Internal Medicine Cardiovascular Disease; Visit Provider Internal Medicine Cardiovascular Disease
DX: I42.0 Dilated cardiomyopathy (principal); I42.8 Other cardiomyopathies; I47.1 Supraventricular tachycardia; I10 Essential (primary) hypertension; E78.5 Hyperlipidemia, unspecified; Z95.0 Presence of cardiac pacemaker; G47.33 Obstructive sleep apnea (adult) (pediatric); I48.0 Paroxysmal atrial fibrillation; R06.02 Shortness of breath; Z79.01 Long term (current) use of anticoagulants; Z79.1 Long term (current) use of non-steroidal anti-inflammatories (NSAID); Z79.82 Long term (current) use of aspirin; Z82.49 Family history of ischemic heart disease and other diseases of the circulatory system
CPT/HCPCS: 36415; 71046; 85025; 93458; 99152; 99153; J7040; C1769; C1894; Q9967

== ENCOUNTER → 2020-08-10 15:26 | Outpatient (CLI) | payer OTHER, MEDICARE, SELFPAY ==
[2020-08-10 12:15] VITALS: BMI 36.5
== END ==
PROVIDERS: PCP Family Medicine; Referring Provider Physician Assistant; Visit Provider Physician Assistant
DX: Z20.828 Contact with and (suspected) exposure to other viral communicable diseases (principal)
CPT/HCPCS: 87635; U0003

== ENCOUNTER → 2020-08-14 16:14 | Outpatient (CLI) | payer OTHER, SELFPAY ==
[2020-08-14 12:11] VITALS: BMI 36.8
[2020-08-14 17:59] LABS: Anion Gap 6 (5-15); BUN 23 mg/dL (7-18); BUN/Creat Ratio 16.3 RATIO (10-20); Chloride 105 mmol/L (98-107); Creatinine, Serum 1.41 mg/dL (0.70-1.30); EST Glomerular Filtration Rate 54 mL/min (>60); Est Glom Filt Rate - Afr Amer 65 mL/min (>60); Glucose 99 mg/dL (74-106); Potassium 3.4 mmol/L (3.5-5.1); Sodium Level 141 mmol/L (136-145)
== END ==
PROVIDERS: PCP Family Medicine; Referring Provider Internal Medicine Cardiovascular Disease; Visit Provider Internal Medicine Cardiovascular Disease
DX: I42.8 Other cardiomyopathies (principal)
CPT/HCPCS: 36415; 80048

== ENCOUNTER → 2020-09-10 10:46 | Outpatient (CLI) | payer OTHER, MEDICARE, SELFPAY ==
[2020-08-14 12:11] VITALS: BMI 36.8
[2020-09-10 12:55] LABS: Absolute Lymphocyte Count 1.18 X10^3/uL (0.83-4.51); Absolute Neutrophil Count 5.9 X10^3/uL (2.0-7.7); Basophil# 0.04 X10^3/uL; Basophil% 0.5 % (0-1); Eosinophil# 0.18 X10^3/uL; Eosinophils% 2.3 % (0-5); Hematocrit 43.4 % (40-54); Hemoglobin 14.1 g/dL (13.0-16.5); Lymphocyte # 1.18 X10^3/ul (4.0); Lymphocyte % 15.1 % (19-41); Mean Corp Hgb Conc 32.5 g/dL (32-36); Mean Corpuscular Hgb 31.7 pg (27.0-32.0); Mean Corpuscular Volume 97.5 fL (80-94); Mean Platelet Vol. 10.8 fl (6.2-12.0); Monocyte# 0.48 X10^3/uL; Monocyte% 6.2 % (0-10); NRBC Flagged by Analyzer 0 % (0-5); Neutrophil # 5.88 X10^3/uL (2.7-7.7); Neutrophil % 75.4 % (47-70); Platelet Count 164 K/mm3 (150-450); RBC Distribution Width CV 13.9 % (11.6-14.6); RBC Distribution Width SD 50.3 fl (35.1-43.9); Red Blood Count 4.45 M/mm3 (4.6-6.2); White Blood Count 7.8 K/mm3 (4.4-11.0)
[2020-09-10 13:01] LABS: ALB/GLOB Ratio 1.2 RATIO (0.9-2.4); AST(SGOT) 19 U/L (15-37); Alanine Aminotransfer ALT/SGPT 34 U/L (16-61); Albumin, Serum 3.9 g/dL (3.2-5.0); Alkaline Phosphatase 83 U/L (45-117); Anion Gap 4 (5-15); BUN 19 mg/dL (7-18); BUN/Creat Ratio 16.8 RATIO (10-20); Calcium,Total 8.9 mg/dL (8.5-10.1); Chloride 105 mmol/L (98-107); Cholesterol 130 mg/dL (200); Creatinine, Serum 1.13 mg/dL (0.70-1.30); EST Glomerular Filtration Rate 69 mL/min (>60); Est Glom Filt Rate - Afr Amer 84 mL/min (>60); Globulin 3.2 g/dL (2.2-4.2); Glucose 132 mg/dL (74-106); High Density Lipoprotein 62 mg/dL; Magnesium 2.2 mg/dL (1.6-2.6); Potassium 4.1 mmol/L (3.5-5.1); Protein, Total 7.1 g/dL (6.4-8.2); Sodium Level 139 mmol/L (136-145); Triglycerides 49 mg/dL; Very Low Density Lipoprotein 10 mg/dL (5-40)
[2020-09-10 13:18] LABS: Hemoglobin A1c 5.9 % (3.8-5.6)
== END ==
PROVIDERS: PCP Family Medicine; Visit Provider Family Medicine
DX: E11.9 Type 2 diabetes mellitus without complications (principal); I10 Essential (primary) hypertension; I48.91 Unspecified atrial fibrillation; E78.00 Pure hypercholesterolemia, unspecified
CPT/HCPCS: 36415; 80053; 80061; 83036; 83735; 85025

== ENCOUNTER → 2020-11-08 10:43 | Outpatient (CLI) | payer OTHER, SELFPAY ==
[2020-08-14 12:11] VITALS: BMI 36.8
--- NOTE | 2020-11-08 10:45 | ECHOD_ITS ---
Reason For Study: SOB Procedure This was a 2D Doppler, Color Flow transthoracic echocardiogram. Exam performed in department. Left Ventricle Normal LV size. Stage 1 diastolic dysfunction. The estimated ejection fraction is 47 %. Compared to previous study, the left ventricular systolic function has improved.. Mid-Anterior : Mildly hypokinetic. Right Ventricle Normal RV size. ICD or pacer leads identified within the right ventricle. Normal systolic function. Atria Normal left atrium. Normal right atrium. Mitral Valve Normal mitral valve. Mild (1+) eccentric mitral valve insufficiency. Tricuspid Valve Normal tricuspid valve. Mild tricuspid valve insufficiency. Pulmonary artery systolic pressure is 24 mmHg. Aortic Valve Trisinus/trileaflet aortic valve. Mild (1+) aortic valve insufficiency. Great Vessels Mild to moderately dilated aortic root. Pericardium/Pleural No pericardial effusion. MMode/2D Measurements & Calculations RVDd: 4.0 cm Ao root diam: 4.9 cm LAV(MOD-bp): 51.6 ml LAV(MOD-bp) Indexed: 23.6 ml/m2 LAV(MOD-sp2): 64.9 ml LAV(MOD-sp4): 37.1 ml LA A4 area: 14.9 cm2 LA dimension(2D): 3.3 cm RA A4 area: 15.4 cm2 Doppler Measurements & Calculations MV E max jose: 44.6 cm/sec Lat Peak E' Jose: 4.6 cm/sec Med Peak E' Jose: 4.5 cm/sec MV A max jose: 60.1 cm/sec E/E' lat: 9.7 E/E' med: 9.9 MV E/A: 0.74 Ao V2 max: 139.0 cm/sec AI max jose: 439.1 cm/sec LV V1 max: 103.4 cm/sec Ao max P.7 mmHg AI max P.3 mmHg LV V1 max P.3 mmHg AI dec slope: 153.8 cm/sec2 AI P1/2t: 836.0 msec PA V2 max: 82.6 cm/sec TR max jose: 233.0 cm/sec TR max P.7 mmHg Interpretation Summary Normal LV size. Stage 1 diastolic dysfunction. Mild (1+) eccentric mitral valve insufficiency. Pulmonary artery systolic pressure is 24 mmHg. ICD or pacer leads identified within the right ventricle. The estimated ejection fraction is 47 %. Compared to previous study, the left ventricular systolic function has improved.. Ordering Physician: Yosvany Arias Referring Physician: Willis Fish Performed By: Puja Chang RDCS
== END ==
PROVIDERS: PCP Family Medicine; Visit Provider Internal Medicine Cardiovascular Disease
DX: I42.8 Other cardiomyopathies (principal); R06.00 Dyspnea, unspecified; R06.02 Shortness of breath
CPT/HCPCS: 93306

== ENCOUNTER 2020-11-13 09:00 | Outpatient (RCR) | payer OTHER, SELFPAY ==
[2020-08-14 12:11] VITALS: BMI 36.8
[2020-11-13] MEDS: COVID-19 VACC, MRNA(PFIZER)/PF 30 MCG/0.3 ML SYRINGE IM (16:48)
[2020-12-04] MEDS: COVID-19 VACC, MRNA(PFIZER)/PF 30 MCG/0.3 ML SYRINGE IM (16:41)
== END 2021-02-12 23:59 ==
LOC: IMMUN 09:00
PROVIDERS: PCP Family Medicine; Visit Provider Family Medicine
DX: Z23 Encounter for immunization (principal)
CPT/HCPCS: 0001A; 0002A; 91300

== ENCOUNTER → 2020-12-12 11:31 | Outpatient (CLI) | payer OTHER, SELFPAY ==
[2020-12-12 10:31] VITALS: BMI 37.9
[2020-12-12 12:28] LABS: Absolute Lymphocyte Count 1.61 X10^3/uL (0.83-4.51); Absolute Neutrophil Count 6.3 X10^3/uL (2.0-7.7); Basophil# 0.04 X10^3/uL; Basophil% 0.5 % (0-1); Eosinophil# 0.18 X10^3/uL; Eosinophils% 2.1 % (0-5); Hematocrit 42.9 % (40-54); Hemoglobin 14.4 g/dL (13.0-16.5); Lymphocyte # 1.61 X10^3/ul (4.0); Lymphocyte % 18.6 % (19-41); Mean Corp Hgb Conc 33.6 g/dL (32-36); Mean Corpuscular Hgb 32.1 pg (27.0-32.0); Mean Corpuscular Volume 95.5 fL (80-94); Mean Platelet Vol. 10.5 fl (6.2-12.0); Monocyte# 0.47 X10^3/uL; Monocyte% 5.4 % (0-10); NRBC Flagged by Analyzer 0 % (0-5); Neutrophil # 6.28 X10^3/uL (2.7-7.7); Neutrophil % 72.7 % (47-70); Platelet Count 167 K/mm3 (150-450); RBC Distribution Width CV 14.6 % (11.6-14.6); RBC Distribution Width SD 49.7 fl (35.1-43.9); Red Blood Count 4.49 M/mm3 (4.6-6.2); White Blood Count 8.6 K/mm3 (4.4-11.0)
[2020-12-12 12:45] LABS: Anion Gap 4 (5-15); BUN 20 mg/dL (7-18); BUN/Creat Ratio 19.4 RATIO (10-20); Chloride 107 mmol/L (98-107); Creatinine, Serum 1.03 mg/dL (0.70-1.30); EST Glomerular Filtration Rate 77 mL/min (>60); Est Glom Filt Rate - Afr Amer 93 mL/min (>60); Glucose 124 mg/dL (74-106); Magnesium 2.4 mg/dL (1.6-2.6); Potassium 3.6 mmol/L (3.5-5.1); Sodium Level 139 mmol/L (136-145)
[2020-12-12 12:48] LABS: BNP,B-Type NATRIURETIC PEPTIDE 31.3 pg/mL (0-100)
== END ==
PROVIDERS: PCP Family Medicine; Referring Provider Nurse Practitioner Family; Visit Provider Nurse Practitioner Family
DX: R06.00 Dyspnea, unspecified (principal); I42.8 Other cardiomyopathies; E78.5 Hyperlipidemia, unspecified; I48.0 Paroxysmal atrial fibrillation; I49.5 Sick sinus syndrome; I10 Essential (primary) hypertension; Z95.0 Presence of cardiac pacemaker
CPT/HCPCS: 36415; 80048; 83735; 83880; 85025

== ENCOUNTER → 2020-12-18 10:42 | Outpatient (CLI) | payer OTHER, SELFPAY ==
[2020-12-12 10:31] VITALS: BMI 37.9
--- NOTE | 2020-12-18 10:45 | RAD_ITS ---
STUDY: X-RAY - LUMBAR SPINE REASON FOR EXAM: Male, 65 years old. Low back pain TECHNIQUE: 3 view(s) of the lumbar spine were obtained. COMPARISON: None FINDINGS: Normal lumbar lordosis. There is no substantial scoliosis. There is a normal alignment of the vertebrae. There is multilevel endplate spondylosis of the lumbar vertebrae. There is multi-level degenerative disc disease with multi-level disc space narrowing. There is no demonstrated fracture. There is atherosclerotic calcification of the abdominal aorta without a demonstrated aneurysm. RAD/Lumbar Spine 2 or 3 Views IMPRESSION: Degenerative changes of the spine, as detailed above. Electronically Signed: Nik Martinez MD at 11:31 EDT , Service support ,
--- NOTE | 2020-12-18 10:45 | RAD_ITS ---
STUDY: X-RAY - PELVIS AND BILATERAL HIPS REASON FOR EXAM: Male, 65 years old. HIP PAIN TECHNIQUE: AP view of the pelvis.? 2 views of the right hip, and 2 views of the left hip were obtained. COMPARISON: None. FINDINGS: There is a non-specific bowel gas pattern. Normal visualized soft tissue structures. There is narrowing with cortical sclerosis and osteophyte formation of the sacroiliac joint consistent with degenerative osteoarthritic changes. Normal bilateral superior and inferior pubic rami. Normal pubic symphysis. Normal bilateral ischial tuberosities. Normal visualized right femoral head. Normal right acetabulum. There is mild articular joint space narrowing of the right hip. Normal visualized left femoral head. Normal left acetabulum. There is mild articular joint space narrowing of the left hip. RAD/Hips B/L min 2 views w/ Pelvis IMPRESSION: Degenerative changes, no acute findings Electronically Signed: Nik Martinez MD at 11:27 EDT , Service support ,
== END ==
PROVIDERS: PCP Family Medicine; Referring Provider Family Medicine; Visit Provider Family Medicine
DX: M47.819 Spondylosis without myelopathy or radiculopathy, site unspecified (principal); M25.559 Pain in unspecified hip
CPT/HCPCS: 72100; 73521

== ENCOUNTER → 2020-12-21 13:56 | Outpatient (CLI) | payer OTHER, SELFPAY ==
[2020-12-12 10:31] VITALS: BMI 37.9
--- NOTE | 2020-12-21 13:59 | CT_ITS ---
STUDY: CT CHEST WITH CONTRAST REASON FOR EXAM: Male, 65 years old. Dilated aortic root, SOB RADIATION DOSAGE (If Supplied By Facility): CTDIvol = ( 13.82 ) mGy, DLP = ( 699.10 ) mGycm TECHNIQUE: Transaxial imaging was performed following intravenous administration of IV 100ML ISOVUE 300. Multiplanar coronal and sagittal images were reformatted. Individualized dose optimization techniques were used for this CT. COMPARISON: Comparison is made with prior examination dated 06/30/2012. FINDINGS: A left-sided dual-chamber pacemaker is seen. The lungs are normal. There is no demonstrated pleural abnormality. There are calcifications of the coronary arteries. Normal mediastinum. Normal hilar regions. Normal enhanced pulmonary arteries. Aneurysmal dilatation of the ascending thoracic aorta with a transverse dimension of 49.7 mm. There are multi-level degenerative changes of the thoracic spine. There is no demonstrated abnormality of the visualized upper abdomen. CT/Chest WITH Contrast IMPRESSION: Aneurysmal dilatation of the ascending thoracic aorta with a transverse dimension of 49.7 mm. Electronically Signed: Enmanuel Shah MD at 14:37 EDT , Service support ,
== END ==
PROVIDERS: PCP Family Medicine; Referring Provider Nurse Practitioner Family; Visit Provider Nurse Practitioner Family
DX: R06.00 Dyspnea, unspecified (principal); I77.810 Thoracic aortic ectasia; I42.8 Other cardiomyopathies; Z95.0 Presence of cardiac pacemaker
CPT/HCPCS: 71260; Q9967

== ENCOUNTER → 2021-01-08 10:50 | Outpatient (CLI) | payer OTHER, SELFPAY ==
[2020-12-12 10:31] VITALS: BMI 37.9
[2021-01-08 12:21] LABS: Absolute Lymphocyte Count 1.22 X10^3/uL (0.83-4.51); Absolute Neutrophil Count 6.6 X10^3/uL (2.0-7.7); Basophil# 0.03 X10^3/uL; Basophil% 0.3 % (0-1); Eosinophil# 0.17 X10^3/uL; Hematocrit 43.5 % (40-54); Hemoglobin 14.3 g/dL (13.0-16.5); Lymphocyte # 1.22 X10^3/ul (0.83-4.51); Mean Corp Hgb Conc 32.9 g/dL (32-36); Mean Corpuscular Hgb 31.1 pg (27.0-32.0); Mean Corpuscular Volume 94.6 fL (80-94); Mean Platelet Vol. 10.8 fl (6.2-12.0); Monocyte# 0.58 X10^3/uL; Monocyte% 6.7 % (0-10); NRBC Flagged by Analyzer 0 % (0-5); Neutrophil # 6.64 X10^3/uL (2.7-7.7); Neutrophil % 76.4 % (47-70); Platelet Count 174 K/mm3 (150-450); RBC Distribution Width CV 14.6 % (11.6-14.6); RBC Distribution Width SD 50.1 fl (35.1-43.9); White Blood Count 8.7 K/mm3 (4.4-11.0)
[2021-01-08 12:38] LABS: ALB/GLOB Ratio 1.1 RATIO (0.9-2.4); AST(SGOT) 19 U/L (15-37); Alanine Aminotransfer ALT/SGPT 33 U/L (16-61); Alkaline Phosphatase 90 U/L (45-117); Anion Gap 6 (5-15); BUN 20 mg/dL (7-18); BUN/Creat Ratio 19.4 RATIO (10-20); Calcium,Total 9.2 mg/dL (8.5-10.1); Chloride 105 mmol/L (98-107); Cholesterol 150 mg/dL (200); Creatinine, Serum 1.03 mg/dL (0.70-1.30); EST Glomerular Filtration Rate 77 mL/min (>60); Est Glom Filt Rate - Afr Amer 93 mL/min (>60); Globulin 3.5 g/dL (2.2-4.2); Glucose 136 mg/dL (74-106); High Density Lipoprotein 64 mg/dL; Magnesium 2.4 mg/dL (1.6-2.6); Potassium 3.8 mmol/L (3.5-5.1); Protein, Total 7.5 g/dL (6.4-8.2); Sodium Level 139 mmol/L (136-145); Triglycerides 105 mg/dL; Very Low Density Lipoprotein 21 mg/dL (5-40)
[2021-01-08 12:45] LABS: Hemoglobin A1c 6.1 % (3.8-5.6)
== END ==
PROVIDERS: PCP Family Medicine; Referring Provider Family Medicine; Visit Provider Family Medicine
DX: E11.59 Type 2 diabetes mellitus with other circulatory complications (principal); E11.69 Type 2 diabetes mellitus with other specified complication; I48.91 Unspecified atrial fibrillation
CPT/HCPCS: 36415; 80053; 80061; 83036; 83735; 85025

== ENCOUNTER → 2021-06-11 11:02 | Outpatient (CLI) | payer OTHER, SELFPAY ==
[2021-06-11 12:22] LABS: PSA,Total - Annual Screen 1.13 ng/mL (0.00-4.00)
== END ==
PROVIDERS: PCP Family Medicine; Referring Provider Family Medicine; Visit Provider Family Medicine
DX: Z12.5 Encounter for screening for malignant neoplasm of prostate (principal)
CPT/HCPCS: 36415; 84153; G0103

== ENCOUNTER 2021-09-10 17:16 | Outpatient (CLI) | payer OTHER, SELFPAY | END 2021-09-10 23:59 | disposition short-term general hospital (02) | PROVIDERS: PCP Family Medicine; Referring Provider Family Medicine; Visit Provider Nurse Practitioner Family | DX: J06.9 Acute upper respiratory infection, unspecified (principal) | CPT/HCPCS: 87635; U0003; U0005 ==

== ENCOUNTER 2022-03-04 11:41 | Inpatient (IN) | payer OTHER, MEDICARE, SELFPAY ==
[2022-03-04] VITALS (13 sets, daily range): BP systolic 102–127; BP diastolic 56–80; PULSE 68–97; RESP 18–28; TEMP 36.7–39.6; O2SAT 92–99; BMI 34.9; BMI 34.3
--- NOTE | 2022-03-04 11:57 | EKG12_ITS ---
Test Reason : SEIZURE Blood Pressure : / mmHG Vent. Rate : 069 BPM Atrial Rate : 069 BPM P-R Int : 236 ms QRS Dur : 136 ms QT Int : 434 ms P-R-T Axes : 049 -31 038 degrees QTc Int : 465 ms Sinus rhythm with 1st degree A-V block Left axis deviation Left ventricular hypertrophy with QRS widening Nonspecific T wave abnormality Abnormal ECG When compared with ECG of 08-SEP-2017 15:45, QRS duration has increased Nonspecific T wave abnormality now evident in Lateral leads Confirmed by MYRTLE GREGORIO, ORALIA ([id number]), editor at large LEONARD GONZÁLES ([id number]) on 03/11/2022 9:40:41 AM Referred By: VITOR Confirmed By:JONATAN IRAHETA MD
--- NOTE | 2022-03-04 11:57 | CT_ITS ---
STUDY: CT BRAIN WITHOUT CONTRAST REASON FOR EXAM: Male, 67 years old. seizure RADIATION DOSAGE (If Supplied By Facility): CTDIvol = ( 44.99 ) mGy, DLP = ( 812.98 ) mGycm TECHNIQUE: Transaxial CT imaging of the brain was performed without administration of intravenous contrast material. Individualized dose optimization techniques were used for this CT. COMPARISON: No relevant priors. FINDINGS: Normal soft tissue structures. Normal calvarium. There is mild cerebral atrophy with widening of the extra-axial spaces and ventricular dilatation. There are areas of decreased attenuation within the white matter tracts of the supratentorial brain, consistent with microvascular disease changes. Normal basal ganglia and thalami. Normal brainstem. Normal cerebellum. There is no intracranial hemorrhage. There are no findings of an acute ischemic infarction. Normal visualized paranasal sinuses. CT/Brain/Head without Contrast IMPRESSION: Chronic involutional changes of the brain. Electronically Signed: Emanuel Garduno MD at 13:22 EDT ,
--- NOTE | 2022-03-04 11:58 | EDS_ITS ---
HPI <Dr. Bear Vargas DO - Last Filed: 03/04/22 16:02> History of Present Illness Chief Complaint: Seizure Informant: patient, spouse/S.O., EMS and PCP Narrative Narrative: 67-year-old male presented to the emergency room following unresponsive episode. For the past 2 weeks patient has felt very fatigued and has had diarrhea. He had a possible tick bite versus abscess on the left forearm and developed fever and was placed on doxycycline. That has gotten better and is almost through with his doxycycline. His diarrhea is still continuing feels fatigued. He had blood work performed about a week ago. He went to the doctor's office today to follow-up and while sitting in a chair had an unresponsive episode in which his eyes began to stare off in his arms curled up. He was not shaking. notes that he was diaphoretic and pale. This lasted 30 seconds to a minute. Patient was confused and has now returned back to the way he was feeling this morning which is tired. FOR[facility]LY [facility], LATER [facility] <Dr. Bear Vargas DO - Last Filed: 03/04/22 16:02> [facility], LAT[facility] Medical History CHF (congestive heart failure), NYHA class III Chronic systolic (congestive) heart failure Essential (primary) hypertension HLD (hyperlipidemia) Hypokalemia Malfunction of electrode lead of cardiac pacemaker Nicotine dependence Non-ischemic cardiomyopathy Nonobstructive atherosclerosis of coronary artery Nonrheumatic aortic (valve) insufficiency Nonspecific abnormal unspecified cardiovascular function study Palpitations Paroxysmal atrial fibrillation Paroxysmal atrial tachycardia Pericardial effusion (11/06/21) Sick sinus syndrome Sinus node dysfunction Sleep apnea Syncope and collapse White coat syndrome with hypertension Home Medications allopurinol 300 mg tablet 300 mg PO DAILY gout 09/08/17 [History Last Taken 03/04/22] pyridoxine (vitamin B6) 100 mg tablet 100 mg PO DAILY SUPPLEMENT 04/05/20 [History Last Taken 03/04/22] tizanidine 4 mg tablet 4 mg PO QHS PRN muscle spasticity 04/05/20 [History Last Taken Unknown] flecainide 150 mg tablet 150 mg PO BID bp #180 tabs 04/08/21 [Rx Last Taken 03/04/22] atorvastatin 40 mg tablet 40 mg PO QHS cholesterol #90 tabs 05/20/21 [Rx Last Taken 03/03/22] amlodipine 10 mg tablet 10 mg PO DAILY BP 03/04/22 [History Last Taken 03/04/22] aspirin 81 mg tablet,delayed release (Adult Aspirin Regimen) 81 mg PO DAILY HEALTH 03/04/22 [History Last Taken 03/04/22] colchicine 0.6 mg tablet 0.3 mg PO BID GOUT 03/04/22 [History Last Taken 03/04/22] doxycycline hyclate 100 mg capsule 100 mg PO BID INFECTION 03/04/22 [History Last Taken 03/04/22] furosemide 40 mg tablet (Lasix) 20 mg PO BID FLUID 03/04/22 [History Last Taken 03/04/22] lisinopril 40 mg tablet 40 mg PO DAILY BP 03/04/22 [History Last Taken 03/04/22] loperamide 2 mg capsule (Imodium A-D) 2 mg PO Q4H PRN Diarrhea 03/04/22 [History Last Taken 03/04/22] metoprolol tartrate 50 mg tablet 50 mg PO BID HEART 03/04/22 [History Last Taken 03/04/22] potassium chloride 20 mEq tablet,extended release(part/cryst) (Klor-Con M) 20 meq PO DAILY SUPPLEMENT 03/04/22 [History Last Taken 03/04/22] Allergy/AdvReac Type Severity Reaction Status Date / Time No Known Allergies Allergy Verified 03/04/22 11:47 Family History (Updated 03/04/22 @ 21:[address] Marcelle Phillips MD) Father CAD (coronary artery disease) Myocardial infarction Hypertension Brother Hypertension Cancer CAD (coronary artery disease) Myocardial infarction Leukemia Surgical History H/O aortic aneurysm repair (10/14/21) History of aortic valve repair (10/14/21) History of knee replacement History of left heart catheterization (10/11/21) History of radiofrequency ablation procedure for cardiac arrhythmia (02/2008) Presence of permanent cardiac pacemaker (10/14/21) Status post pericardiocentesis (11/07/21) Social History (Updated 03/04/22 @ 21:[address] Marcelle Phillips MD) household members: spouse Smoking Status: Former smoker how long ago did patient quit smoking: Quit 6 months prior, smoked cig socially ~1-3 when with friends since teen. alcohol intake: current alcohol intake frequency: a few times a month Alcohol type: beer substance use type: does not use caffeine: Yes Type: coffee Number of servings: 2 what type of physical activity do you participate in: none ROS <Dr. Bear Vargas DO - Last Filed: 03/04/22 16:02> ROS ED ROS Narrative Generalized fatigue Constitutional Constitutional ED: Denies chills or weight loss Eyes Eyes: Denies change in vision or diplopia ENT ENT ED: Denies ear pain, rhinorrhea or sore throat Cardiovascular Cardiovascular: Denies chest pain, orthopnea, palpitations or racing heartbeat Respiratory/Chest Respiratory/Chest: Denies cough, dyspnea or orthopnea Gastrointestinal Gastrointestinal: Reports diarrhea; Denies abdominal pain, nausea or vomiting Genitourinary Genitourinary ED: Denies dysuria, hematuria or urinary frequency Musculoskeletal Musculoskeletal: Denies arthralgias or myalgias Integumentary Reports abscess and rash Neurologic Neurologic: Denies headache(s) or weakness Psychiatric Psychiatric: Denies anxiety, depression, suicidal ideation or suicidal thoughts Endocrine Endocrinology: Denies polydipsia, polyphagia or polyuria Allergic/Immunologic Allergic/Immunologic ED: Denies mouth swelling, tongue swelling or urticaria EXAM <Dr. Bear Vargas, DO - Last Filed: 03/04/22 16:02> Physical Exam Const Vital Signs: 03/04/22 11:42 03/04/22 11:47 03/04/22 13:37 Temperature 98.1 F 98.1 F 98.9 F Temperature Source Temporal Temporal Temporal Pulse Rate 68 68 72 Respiratory Rate 28 H 21 H 18 Blood Pressure 118/65 118/65 113/64 Blood Pressure Mean 82 82 80 Pulse Ox 97 97 97 Oxygen Delivery Method Room Air Room Air Room Air 03/04/22 13:37 03/04/22 15:00 03/04/22 15:02 Temperature 98.9 F 98.8 F 98.8 F Temperature Source Temporal Temporal Temporal Pulse Rate 72 74 74 Respiratory Rate 18 20 H 20 H Blood Pressure 113/64 109/69 109/69 Blood Pressure Mean 80 82 82 Pulse Ox 97 96 96 Oxygen Delivery Method Room Air Room Air Room Air 03/04/22 15:02 Temperature Temperature Source Pulse Rate 74 Respiratory Rate 20 H Blood Pressure 109/69 Blood Pressure Mean 82 Pulse Ox 96 Oxygen Delivery Method Room Air Positive well nourished and well developed General Appearance ED: well developed HEENT Reports normocephalic, head/scalp atraumatic and moist mucous membranes Eyes PERRL and EOMs intact bilaterally Neck no lymphadenopathy, supple and no JVD Resp normal respiratory effort and clear to auscultation bilaterally Cardio regular rate, regular rhythm and no murmurs GI normal to inspection, nondistended, normoactive bowel sounds and non-tender Palpation: soft Back/Spine no CVA tenderness and normal ROM Extremity normal to inspection General Extremety ED: Negative for edema General Extremity: Negative for edema Neuro oriented x3 and CN's II-XII intact bilaterally Sensorium / Orientation: alert Motor Exam: strength 5/5 throughout Psych mental status grossly normal Mood & Affect: Negative for depressed or tearful Skin no rashes or lesions noted Skin Narrative: On the distal left forearm is a healing wound perhaps a healing abscess. There is no fluctuance or erythema to suggest further infection. <Dr. George Jacobson, DO - Last Filed: 03/04/22 22:34> Physical Exam Const Vital Signs: 03/04/22 11:42 03/04/22 11:47 03/04/22 13:37 Temperature 98.1 F 98.1 F 98.9 F Temperature Source Temporal Temporal Temporal Pulse Rate 68 68 72 Respiratory Rate 28 H 21 H 18 Blood Pressure 118/65 118/65 113/64 Blood Pressure Mean 82 82 80 Pulse Ox 97 97 97 Oxygen Delivery Method Room Air Room Air Room Air 03/04/22 13:37 03/04/22 15:00 03/04/22 15:02 Temperature 98.9 F 98.8 F 98.8 F Temperature Source Temporal Temporal Temporal Pulse Rate 72 74 74 Respiratory Rate 18 20 H 20 H Blood Pressure 113/64 109/69 109/69 Blood Pressure Mean 80 82 82 Pulse Ox 97 96 96 Oxygen Delivery Method Room Air Room Air Room Air 03/04/22 15:02 Temperature Temperature Source Pulse Rate 74 Respiratory Rate 20 H Blood Pressure 109/69 Blood Pressure Mean 82 Pulse Ox 96 Oxygen Delivery Method Room Air [facility] <Dr. Bear Vargas, DO - Last Filed: 03/04/22 16:02> [facility] MDM Narrative Medical decision making narrative: Patient noted to be pancytopenic with a white count was 0.2 hemoglobin 9.8 and platelet count of 77. CMP with a glucose of [address] of the brain negative for acute. My interpretation of the chest x-ray is no acute process. End of November 2021 the patient had a CBC with the [facility] that showed a WBC of 4.04 hemoglobin of 12.3 and a platelet count of 176. I am concerned that the patient may have an aplastic anemia from doxycycline or perhaps an acute leukemia. I spoke with our oncologist Dr. Mariee who recommends transfer to tertiary care setting. Spoke with the patient and he would like to be transferred to [facility]. Lab Data Attestation: I reviewed the patient's lab results. Labs: Laboratory Results - last 24 hr 03/04/22 03/04/22 12:10 12:10 WBC 0.2 L* RBC 2.88 L Hgb 9.8 L Hct 28.2 L MCV 97.9 H MCH 34.0 H MCHC 34.8 RDW Std Deviation 69.1 H RDW Coeff of Lily 19.1 H Plt Count 77 L MPV 10.7 Immature Gran % (Auto) 0.000 Neut % (Auto) 5.6 L Lymph % (Auto) 83.3 H Ralls % (Auto) 11.1 H Eos % (Auto) 0.0 Baso % (Auto) 0.0 Absolute Neuts (auto) 0.0 L Absolute Lymphs (auto) 0.15 L Nucleated RBC % 0 Differential Comment Diff Path Review May foll Platelet Estimate MKD DEC Anisocytosis 2+ Sodium 132 L Potassium 3.5 Chloride 99 Carbon Dioxide 23.0 Anion Gap 10 BUN 25 H Creatinine 1.16 Estim Creat Clear Calc 55.76 Est GFR (MDRD) Af Amer 81 Est GFR (MDRD) Non-Af 67 BUN/Creatinine Ratio 21.6 H Glucose 119 H Calcium 8.4 L Total Bilirubin 0.80 AST 96 H ALT 105 H Alkaline Phosphatase 59 Troponin I High Sens 14 Total Protein 6.9 Albumin 3.1 L Globulin 3.8 Albumin/Globulin Ratio 0.8 L TSH 0.95 Radiography Diagnostic Testing: Clinical Impression(s) from Imaging Studies Brain CT 03/04/22 11:57 IMPRESSION: Chronic involutional changes of the brain. Electronically Signed: Emanuel Garduno MD at 13:22 EDT , Chest X-Ray 03/04/22 12:32 IMPRESSION: No acute abnormality present. Electronically Signed: Enmanuel Shah MD at 13:03 EDT , <Dr. George Jacobson, DO - Last Filed: 03/04/22 22:34> MDM MDM Narrative Medical decision making narrative: Patient noted to be pancytopenic with a white count was 0.2 hemoglobin 9.8 and platelet count of 77. CMP with a glucose of [address] of the brain negative for acute. My interpretation of the chest x-ray is no acute proc ess. End of November 2021 the patient had a CBC with the [facility] that showed a WBC of 4.04 hemoglobin of 12.3 and a platelet count of 176. I am concerned that the patient may have an aplastic anemia from doxycycline or perhaps an acute leukemia. I spoke with our oncologist Dr. Mariee who recommends transfer to tertiary care setting. Spoke with the patient and he would like to be transferred to [facility]. Le: Patient signed out to me pending callback from [facility]. I spoke with leukemia physician Dr. Vasquez, discussed patient's history findings with pancytopenia and neutropenic fever. He agrees with admission due to the neutropenic fever. He states typically due to requiring admission bone biopsy would be performed as part of the work-up. He did not feel it was a plastic anemia more acute leukemia that needs further work-up. There is currently no beds available this evening there however he states he cannot go to another capable facility if available. Discussed with patient and family attempt at [facility] however there is also no bed available's. I rediscussed with hospital team here, plan from Dr. Vasquez was 48 hours of IV antibiotics with neutropenic fever. [id number]: Received call back from [facility] with medicine doctor Dr. Weston, updated to be accepted to the medicine service. Lab Data Labs: Laboratory Results - last 24 hr 03/04/22 03/04/22 12:10 12:10 WBC 0.2 L* RBC 2.88 L Hgb 9.8 L Hct 28.2 L MCV 97.9 H MCH 34.0 H MCHC 34.8 RDW Std Deviation 69.1 H RDW Coeff of Lily 19.1 H Plt Count 77 L MPV 10.7 Immature Gran % (Auto) 0.000 Neut % (Auto) 5.6 L Lymph % (Auto) 83.3 H Ralls % (Auto) 11.1 H Eos % (Auto) 0.0 Baso % (Auto) 0.0 Absolute Neuts (auto) 0.0 L Absolute Lymphs (auto) 0.15 L Nucleated RBC % 0 Differential Comment Diff Path Review May foll Platelet Estimate MKD DEC Anisocytosis 2+ Sodium 132 L Potassium 3.5 Chloride 99 Carbon Dioxide 23.0 Anion Gap 10 BUN 25 H Creatinine 1.16 Estim Creat Clear Calc 55.76 Est GFR (MDRD) Af Amer 81 Est GFR (MDRD) Non-Af 67 BUN/Creatinine Ratio 21.6 H Glucose 119 H Calcium 8.4 L Total Bilirubin 0.80 AST 96 H ALT 105 H Alkaline Phosphatase 59 Troponin I High Sens 14 Total Protein 6.9 Albumin 3.1 L Globulin 3.8 Albumin/Globulin Ratio 0.8 L TSH 0.95 Radiography Diagnostic Testing: Clinical Impression(s) from Imaging Studies Brain CT 03/04/22 11:57 IMPRESSION: Chronic involutional changes of the brain. Electronically Signed: Emanuel Garduno MD at 13:22 EDT , Chest X-Ray 03/04/22 12:32 IMPRESSION: No acute abnormality present. Electronically Signed: Enmanuel Shah MD at 13:03 EDT , Discharge Plan Dx/Rx/DC Orders Clinical Impression: Syncope, Pancytopenia, Neutropenic fever, Acute leukemia Disposition Disposition: Acute Care Hospital [facility] Discharge Date/Time: 03/04/22 20:49
[2022-03-04] MEDS: 0.9% Normal Saline 1,000 ML 1000 ML IV (12:13)
[2022-03-04 12:24] LABS: Absolute Lymphocyte Count 0.15 X10^3/uL (0.83-4.51); Hematocrit 28.2 % (40-54); Hemoglobin 9.8 g/dL (13.0-16.5); Lymphocyte # 0.15 X10^3/ul (0.83-4.51); Lymphocyte % 83.3 % (19-41); Mean Corp Hgb Conc 34.8 g/dL (32-36); Mean Corpuscular Volume 97.9 fL (80-94); Mean Platelet Vol. 10.7 fl (6.2-12.0); Monocyte# 0.02 X10^3/uL; Monocyte% 11.1 % (0-10); NRBC Flagged by Analyzer 0 % (0-5); Neutrophil # 0.01 X10^3/uL (2.7-7.7); Neutrophil % 5.6 % (47-70); POSITIVE COUNT YES; POSITIVE DIFFERENTIAL YES; POSITIVE MORPHOLOGY YES; Platelet Count 77 K/mm3 (150-450); RBC Distribution Width CV 19.1 % (11.6-14.6); RBC Distribution Width SD 69.1 fl (35.1-43.9); Red Blood Count 2.88 M/mm3 (4.6-6.2); White Blood Count 0.2 K/mm3 (4.4-11.0)
--- NOTE | 2022-03-04 12:32 | RAD_ITS ---
STUDY: X-RAY CHEST REASON FOR EXAM: Male, 67 years old. Syncope TECHNIQUE: Single AP portable view of the chest. COMPARISON: Comparison is made with prior study dated 05/29/2020. FINDINGS: EKG electrodes are seen. Hyperinflation. The lungs are clear. There is no demonstrated pleural abnormality. Sternal cerclage wires and vascular clips are present from a prior sternotomy and coronary artery bypass graft procedure (CABG). A left-sided dual-chamber pacemaker is seen. Normal mediastinum and carlos alberto. Normal visualized pulmonary arteries. Normal visualized aortic arch and descending thoracic aorta. Normal visualized thoracic spine. Normal visualized ribs, clavicles, and shoulders. There is no demonstrated abnormality of the visualized soft tissue structures of the upper abdomen. RAD/Chest 1 View (Portable) IMPRESSION: No acute abnormality present. Electronically Signed: Enmanuel Shah MD at 13:03 EDT ,
[2022-03-04 12:49] LABS: Anisocytosis 2+; Platelet Estimate MKD DEC (ADEQ)
[2022-03-04 12:50] LABS: ALB/GLOB Ratio 0.8 RATIO (0.9-2.4); AST(SGOT) 96 U/L (15-37); Alanine Aminotransfer ALT/SGPT 105 U/L (16-61); Albumin, Serum 3.1 g/dL (3.2-5.0); Alkaline Phosphatase 59 U/L (45-117); Anion Gap 10 (5-15); BUN 25 mg/dL (7-18); BUN/Creat Ratio 21.6 RATIO (10-20); Calcium,Total 8.4 mg/dL (8.5-10.1); Chloride 99 mmol/L (98-107); Creatinine, Serum 1.16 mg/dL (0.70-1.30); EST Glomerular Filtration Rate 67 mL/min (>60); Est Glom Filt Rate - Afr Amer 81 mL/min (>60); Estimated Creatinine Clearance 55.76 ml/min; Globulin 3.8 g/dL (2.2-4.2); Glucose 119 mg/dL (74-106); Potassium 3.5 mmol/L (3.5-5.1); Protein, Total 6.9 g/dL (6.4-8.2); Sodium Level 132 mmol/L (136-145); Thyroid Stim Hormone (TSH) 0.95 uIU/mL (0.358-3.74); Troponin-I HS 14 pg/mL (3.0-78.0)
[2022-03-04 13:09] LABS: Differential Indicated SCAN CRITERIA MET
--- NOTE | 2022-03-04 14:48 | NURSING ---
DR FIGUEROA FOR DR AREVALO
--- NOTE | 2022-03-04 15:04 | NURSING ---
PCU HENRY PANCYTOPENIA
--- NOTE | 2022-03-04 15:46 | CASEMGMT ---
According to the MMO website, the following are in-network tertiary facilities: [facility], [facility], [facility], [facility], [facility], [facility], and . Douglas ORNELAS CM
--- NOTE | 2022-03-04 18:13 | NURSING ---
CALLED [facility] TRANSFER LINE. TALKED TO ADELINE. DR ARCHER AGAIN.
--- NOTE | 2022-03-04 19:06 | NURSING ---
DR. MANZANO FROM [facility] CALLED BACK TO TALK TO DR. CONNER
[2022-03-04] MEDS: Acetaminophen 500 MG Tablet 1000 MG PO (19:08)
[2022-03-04 19:37] LABS: Lactic Acid 1.8 mmol/L (0.4-1.9)
--- NOTE | 2022-03-04 20:08 | PCM.HP.STD ---
HPI - General General Date of Admission: 03/04/22 Date of Service: 03/04/22 Chief Complaint: Fatigue, diarrhea, recent LUE infection, concern ? seizure in PCP office. HPI Narrative The patient is a 67 y/o M w/ PMHx: Chronic Systolic CHF, Nonischemic Cardiomyopathy, HTN, HLD, Sick sinus syndrome s/p pacemaker placement, REYMUNDO, PAF, Valvular Heart Disease s/p AVR, Tobacco use history who presents to the [facility] ED on 03/04/22 with history of fatigue, diarrhea (3 days, nearly 10-20 episodes, improved only with loperamide), recent LUE forearm bite/cellulitis with fever placed on doxycycline with near completion of his regimen (10 day course with 1.5 days left) and clinical resolution of the cellulitis/abscess with persistent diarrhea and fatigue with PCP evaluation with unresponsive episode at PCP office while seated, noted to have been staring off, arms curled up toward his chest with tight fists, eyes wide open with pupils becoming pinpoint with no specific shaking, loss of bowel or bladder with diaphoresis noted also to be pale with only mild confusion following resolution lasting ~ 90 seconds prompting ED evaluation. Family noted his answered most questions appropriately to PCP except noted his was in [place] instead. Following improvement in the office patient did report feeling nauseated without any emesis. LUE recent bite, also, only noted to have been in their backyard with annika-bite erythema which has since completely resolved with no drainage at any point. In the ED work-up included T-max 103.3, heart rate 78, BP 108/74, respiratory rate 20, 95 to 96% room air, CBC with WBC 0.2, hemoglobin 9.8, platelets 77 with neutropenia and lymphopenia, CMP with sodium 132, BUN/creatinine 25/1.16, glucose 119, total bilirubin 0.8, AST/LT 96/105, alk phos 59, Trope 14, TSH 0.95, lactic acid pending, chest x-ray with no acute cardiopulmonary findings, CT of the brain with no acute intracranial findings, blood cultures pending per ED, COVID negative rapid. In the ED patient administered IV zosyn, vanc and administered 1L NS bolus. Oncology recommended tertiary transfer with initial attempts for [facility] with eventual discussion with Dr. Vasquez with Oncology with acceptance but no beds with in the interim requested at least 48 hours abx therapy with BSA regimen and noted will need BM Bx likely. [facility] Medical History CHF (congestive heart failure), NYHA class III Chronic systolic (congestive) heart failure Essential (primary) hypertension HLD (hyperlipidemia) Hypokalemia Malfunction of electrode lead of cardiac pacemaker Nicotine dependence Non-ischemic cardiomyopathy Nonobstructive atherosclerosis of coronary artery Nonrheumatic aortic (valve) insufficiency Nonspecific abnormal unspecified cardiovascular function study Palpitations Paroxysmal atrial fibrillation Paroxysmal atrial tachycardia Pericardial effusion (11/06/21) Sick sinus syndrome Sinus node dysfunction Sleep apnea Syncope and collapse White coat syndrome with hypertension Home Medications allopurinol 300 mg tablet 300 mg PO DAILY gout 09/08/17 [History Last Taken 03/04/22] pyridoxine (vitamin B6) 100 mg tablet 100 mg PO DAILY SUPPLEMENT 04/05/20 [History Last Taken 03/04/22] tizanidine 4 mg tablet 4 mg PO QHS PRN muscle spasticity 04/05/20 [History Last Taken Unknown] flecainide 150 mg tablet 150 mg PO BID bp #180 tabs 04/08/21 [Rx Last Taken 03/04/22] atorvastatin 40 mg tablet 40 mg PO QHS cholesterol #90 tabs 05/20/21 [Rx Last Taken 03/03/22] amlodipine 10 mg tablet 10 mg PO DAILY BP 03/04/22 [History Last Taken 03/04/22] aspirin 81 mg tablet,delayed release (Adult Aspirin Regimen) 81 mg PO DAILY HEALTH 03/04/22 [History Last Taken 03/04/22] colchicine 0.6 mg tablet 0.3 mg PO BID GOUT 03/04/22 [History Last Taken 03/04/22] doxycycline hyclate 100 mg capsule 100 mg PO BID INFECTION 03/04/22 [History Last Taken 03/04/22] furosemide 40 mg tablet (Lasix) 20 mg PO BID FLUID 03/04/22 [History Last Taken 03/04/22] lisinopril 40 mg tablet 40 mg PO DAILY BP 03/04/22 [History Last Taken 03/04/22] loperamide 2 mg capsule (Imodium A-D) 2 mg PO Q4H PRN Diarrhea 03/04/22 [History Last Taken 03/04/22] metoprolol tartrate 50 mg tablet 50 mg PO BID HEART 03/04/22 [History Last Taken 03/04/22] potassium chloride 20 mEq tablet,extended release(part/cryst) (Klor-Con M) 20 meq PO DAILY SUPPLEMENT 03/04/22 [History Last Taken 03/04/22] Allergy/AdvReac Type Severity Reaction Status Date / Time No Known Allergies Allergy Verified 03/04/22 11:47 Family History (Updated 03/04/22 @ 21:[address] Marcelle Phillips MD) Father CAD (coronary artery disease) Myocardial infarction Hypertension Brother Hypertension Cancer CAD (coronary artery disease) Myocardial infarction Leukemia Surgical History H/O aortic aneurysm repair (10/14/21) History of aortic valve repair (10/14/21) History of knee replacement History of left heart catheterization (10/11/21) History of radiofrequency ablation procedure for cardiac arrhythmia (02/2008) Presence of permanent cardiac pacemaker (10/14/21) Status post pericardiocentesis (11/07/21) Social History (Updated 03/04/22 @ 21:[address] Marcelle Phillips MD) household members: spouse Smoking Status: Former smoker how long ago did patient quit smoking: Quit 6 months prior, smoked cig socially ~1-3 when with friends since teen. alcohol intake: current alcohol intake frequency: a few times a month Alcohol type: beer substance use type: does not use caffeine: Yes Type: coffee Number of servings: 2 what type of physical activity do you participate in: none ROS ROS Narrative Admission Review of Systems: CONSTITUTIONAL: No weight loss, chills, + fever, weakness or fatigue. HEENT: Eyes: No visual loss, blurred vision, double vision or yellow sclerae. Ears, Nose, Throat: No hearing loss, sneezing, congestion, runny nose or sore throat. SKIN: + LUE recent insect bite and cellulitis, resolved. CARDIOVASCULAR: No chest pain, chest pressure or chest discomfort, palpitations, edema, orthopnea, syncopal events. RESPIRATORY: No shortness of breath, cough or sputum, wheezing, hemoptysis. GASTROINTESTINAL: + Diarrhea, episode of nausea without emesis x 1, No anorexia, vomiting, abdominal pain, melena, BRBPR. GENITOURINARY: No dysuria, frequency, urgency or retention. NEUROLOGICAL: + Questionable seizure versus near syncopal event. No headache, dizziness, syncope, paralysis, ataxia, numbness or tingling in the extremities, focal weakness, change in bowel or bladder control, seizure. MUSCULOSKELETAL: + muscle, back pain, joint pain or stiffness. HEMATOLOGIC: + anemia, bleeding or bruising. LYMPHATICS: No enlarged nodes. No history of splenectomy. PSYCHIATRIC: No history of depression or anxiety. ENDOCRINOLOGIC: + reports of sweating, No cold or heat intolerance. No polyuria or polydipsia. ALLERGIES: No history of asthma, hives, eczema or rhinitis. Vital Signs Vital Signs Vital Signs: 03/04/22 11:42 03/04/22 11:47 03/04/22 13:37 Temperature 98.1 F 98.1 F 98.9 F Temperature Source Temporal Temporal Temporal Pulse Rate 68 68 72 Respiratory Rate 28 H 21 H 18 Blood Pressure 118/65 118/65 113/64 Blood Pressure Mean 82 82 80 Pulse Ox 97 97 97 Oxygen Delivery Method Room Air Room Air Room Air 03/04/22 13:37 03/04/22 15:00 03/04/22 15:02 Temperature 98.9 F 98.8 F 98.8 F Temperature Source Temporal Temporal Temporal Pulse Rate 72 74 74 Respiratory Rate 18 20 H 20 H Blood Pressure 113/64 109/69 109/69 Blood Pressure Mean 80 82 82 Pulse Ox 97 96 96 Oxygen Delivery Method Room Air Room Air Room Air 03/04/22 15:02 03/04/22 16:51 03/04/22 16:51 Temperature 99.2 F H 99.2 F H Temperature Source Temporal Temporal Pulse Rate 74 78 78 Respiratory Rate 20 H 20 H 20 H Blood Pressure 109/69 108/74 108/74 Blood Pressure Mean 82 85 85 Pulse Ox 96 96 96 Oxygen Delivery Method Room Air Room Air Room Air 03/04/22 17:00 03/04/22 17:00 03/04/22 17:50 Temperature 99.2 F H 99.2 F H 103.3 F H Temperature Source Temporal Temporal Oral Pulse Rate 80 80 Respiratory Rate 20 H 20 H Blood Pressure 119/65 119/56 L Blood Pressure Mean 83 77 Pulse Ox 95 95 Oxygen Delivery Method Room Air Room Air Weight Weight: 216 lb 7.903 oz Body Mass Index (BMI) 34.9 Physical Exam Narrative Physical Examination: General: Awake, alert, oriented x 3 and cooperative, seated upright in the ED bed, fatigued, ill-appearing but no distress. Skin: Mildly flushed color, normal turgor, no icterus, no cyanosis except for noted healed left forearm recent cellulitis, small scab where the bite was present, no induration or pain or streaking or blotability noted. HEENT: AT/NC, EOMI, PERRLA, mildly dry MM, no carotid bruits or JVD noted. Lungs: Mildly diminished, greater bases, appropriate effort, no rales, ronchi or wheezing. Heart: Currently regular rate and rhythm; no gallop, rub audible. Abdomen: Soft, obese, NTTP, ND, hyperactive BS, no HSM. Extremities: No cyanosis, clubbing, or edema. Neurological: Patient awake, alert, oriented as noted, cognitive function improved, seems currently intact; pupils equally reactive to light and accommodation, cranial nerves II-XII grossly normal, moving all 4 extremities, no focal deficits, strength moderately global decrease secondary to acute presentation Psychiatric: Affect appears fatigued, ill-appearing, no acute evidence of depressive or anxiety feelings. Results Lab / Micro Data Result Diagrams: 03/04/22 12:10 03/04/22 12:10 Labs: Laboratory Results - last 24 hr 03/04/22 12:10: WBC 0.2 L*, RBC 2.88 L, Hgb 9.8 L, Hct 28.2 L, MCV 97.9 H, MCH 34.0 H, MCHC 34.8, RDW Std Deviation 69.1 H, RDW Coeff of Lily 19.1 H, Plt Count 77 L, MPV 10.7, Immature Gran % (Auto) 0.000, Neut % (Auto) 5.6 L, Lymph % (Auto) 83.3 H, [place] % (Auto) 11.1 H, Eos % (Auto) 0.0, Baso % (Auto) 0.0, Absolute Neuts (auto) 0.0 L, Absolute Lymphs (auto) 0.15 L, Nucleated RBC % 0, Differential Comment , Diff Path Review May foll, Platelet Estimate MKD DEC, Anisocytosis 2+ 03/04/22 12:10: Sodium 132 L, Potassium 3.5, Chloride 99, Carbon Dioxide 23.0, Anion Gap 10, BUN 25 H, Creatinine 1.16, Estim Creat Clear Calc 55.76, Est GFR (MDRD) Af Amer 81, Est GFR (MDRD) Non-Af 67, BUN/Creatinine Ratio 21.6 H, Glucose 119 H, Calcium 8.4 L, Total Bilirubin 0.80, AST 96 H, ALT 105 H, Alkaline Phosphatase 59, Troponin I High Sens 14, Total Protein 6.9, Albumin 3.1 L, Globulin 3.8, Albumin/Globulin Ratio 0.8 L, TSH 0.95 03/04/22 18:15: Lactic Acid 1.8 Micro: Microbiology 03/04/22 12:15 Nasal Secretion SARS-CoV-2 Antigen (Rapid) - Final Radiology Impression Brain CT 03/04/22 11:57 IMPRESSION: Chronic involutional changes of the brain. Electronically Signed: Emanuel Garduno MD at 13:22 EDT , Chest X-Ray 03/04/22 12:32 IMPRESSION: No acute abnormality present. Electronically Signed: Enmanuel Shah MD at 13:03 EDT , Assessment & Plan Assessment/Plan (1) Pancytopenia: PLAN: Plan The patient is a 67 y/o M w/ PMHx: Chronic Systolic CHF, Nonischemic Cardiomyopathy, HTN, HLD, Sick sinus syndrome s/p pacemaker placement, REYMUNDO, PAF, Valvular Heart Disease s/p AVR, Tobacco use history who presents to the [facility] ED on 03/04/22 with history of fatigue, diarrhea (3 days, nearly 10-20 episodes, improved only with loperamide), recent LUE forearm bite/cellulitis with fever placed on doxycycline with near completion of his regimen (10 day course with 1.5 days left) and clinical resolution of the cellulitis/abscess with persistent diarrhea and fatigue with PCP evaluation with unresponsive episode at PCP office while seated, noted to have been staring off, arms curled up toward his chest with tight fists, eyes wide open with pupils becoming pinpoint with no specific shaking, loss of bowel or bladder with diaphoresis noted also to be pale with only mild confusion following resolution lasting ~ 90 seconds prompting ED evaluation. #1. Acute Neutropenic Fever with Pancytopenia, new onset with concurrent Acute Transaminitis, unclear specific etiology, Possibly Infectious with recent history LUE Cellulitis, Abscess, Possible Drug Reaction with Aplastic anemia (less likely as not severely anemia per [facility] discussion) secondary to doxycycline versus new onset AML: We will admit to PCU given significant new findings and questionable #2, maintain on fall, seizure precautions, maintain on broad-spectrum antibiotic therapy with vancomycin and Zosyn with pending MRSA screen requested, pending blood culture, requested urinalysis and urine culture, requested sputum Cx and respiratory full panel, stool enteric and cdiff requested, coags requested, procalcitonin requested, given likely to be delay for [facility] transition will request Oncology involvement (Hospitalist on day discussed case with Dr. Mariee), continue to trend CBC, CMP, judiciously hydrate. #2. Questionable Near Syncope versus Seizure disorder: From discussion with spouse still some concern that this certainly could have been a seizure as opposed to a near syncopal event. CT head with no acute findings, will maintain on telemetry on seizure precautions, request EEG, given patient's status with device at this point will defer MRI as no evidence and notes of it being MRI compatible, TSH normal. Will await EEG for neurology evaluation consideration. UDS requested. #3. Chronic Systolic CHF, Nonischemic cardiomyopathy: Temporarily holding aspirin given #1, continue metoprolol, lisinopril, Lasix with hold parameters as needed as well as continuation of patient statin therapy cautiously with close LFT monitoring given #1. Judiciously hydrate with continued daily weight. #4. Hypertension: Continue home regimen including metoprolol, lisinopril, Lasix, amlodipine with hold parameters as needed, as needed IV hydralazine. #5. Hyperlipidemia: We will continue statin therapy and continue to closely monitor liver function, currently not 3 times the upper limit of baseline normal. #6. PAF: s/p prior PVI and CTI ablation 2007 and 2008 at [facility], continue metoprolol, flecainide regimen, not anticoagulated, temporarily holding aspirin given #1. #7. Hx Sick Sinus Syndrome: s/p pacemaker 2007 with generator change 09/2018 w/ lead fracture RA and RV lead extraction wire placement 11/2019. #8. Hx Ascending Thoracic aortic and root enlargement with Valvular Heart Disease: Patient s/p AV and aortic repair 10/14/21, following w/ Dr. Gerardo, temporarily holding aspirin, continue statin given LFTs are not 3 times the upper limit of patient's normal, closely follow CMP however to be cautious, continue hypertensive regimen as noted. #9. Former tobacco use: Encourage continued tobacco cessation. #10. Obesity: Weight loss and lifestyle changes encouraged. #11. REYMUNDO: CPAP nightly. #12. DVT prophylaxis: SCDs, defer chemoprophylaxis given #1. #13. CODE status: Patient ROSY is his who is and living will is currently in place. Discussed CODE status at length including difference between FULL code, DNR-CCA and DNR-CC status. Following discussions about the differences in these status, requested Full Code status. Advanced Care Planning Face to Face Time: 16 minutes. ? Charges/Coding Visit Charges Inpatient E&M: 10772 Init Hosp L3 Procedures Hospitalists Procedures: 25184 Advncd Care Plan 30 Min
--- NOTE | 2022-03-04 22:20 | PCM.RX.CS ---
Consult Pharmacy has been consulted to manage selected antiobiotic: Vancomycin Type of Consult: New start Suspected Infection: Other Prior Doses of Antibiotics Received/Current Regimen: Medications Vancomycin HCl (Vancomycin) 1,000 mg in 200 mls @ 200 mls/hr IV Q12H BARBER Discontinued Medications Vancomycin HCl 1,500 mg/ (Sodium Chloride) 530 mls @ 250 mls/hr IV X1 ONE Stop: 03/04/22 19:56 Last Admin: 03/04/22 19:02 Dose: 250 mls/hr Labs: Sodium 132 mmol/L (136-145) L 03/04/22 12:10 Potassium 3.5 mmol/L (3.5-5.1) 03/04/22 12:10 Chloride 99 mmol/L (98-107) 03/04/22 12:10 Carbon Dioxide 23.0 mmol/L (21.0-32.0) 03/04/22 12:10 Anion Gap 10 (5-15) 03/04/22 12:10 BUN 25 mg/dL (7-18) H 03/04/22 12:10 Creatinine 1.16 mg/dL (0.70-1.30) 03/04/22 12:10 Est GFR (MDRD) Af Amer 81 mL/min (>60) 03/04/22 12:10 Est GFR (MDRD) Non-Af 67 mL/min (>60) 03/04/22 12:10 BUN/Creatinine Ratio 21.6 RATIO (10-20) H 03/04/22 12:10 Glucose 119 mg/dL (74-106) H 03/04/22 12:10 Microbiology: Microbiology 03/04/22 12:15 Nasal Secretion SARS-CoV-2 Antigen (Rapid) - Final Weight used for dosin.6 kg Estimated Creatinine Clearance: 56 Goal Trough: 15-20 mcg/mL Pharmacy Plan for Drug Dosing: Pharmacy Service will continue to monitor and adjust dosing as required. Follow-Up Labs: Trough Vancomycin Labs to be done on [date and time ordered]: 03/06/22 @0630
[2022-03-04 22:40] LABS: Procalcitonin 0.26 ng/mL (0.00-0.09)
[2022-03-04 22:45] LABS: International Normalized Ratio 1.4; Partial Thromboplast Time 31.4 Seconds (24.1-36.2); Prothrombin Time (Protime)PT. 16.6 SECONDS (11.7-14.9)
[2022-03-04] MEDS: 0.9% Normal Saline 1,000 ML 100 ML IV (22:45)
[2022-03-04] MEDS: Metoprolol Tartrate 50 MG Tablet PO (22:47)
[2022-03-04] MEDS: Atorvastatin Calcium 40 MG Tablet PO (22:47)
[2022-03-04] MEDS: Flecainide 150 MG Tablet PO (22:48)
[2022-03-05] VITALS (14 sets, daily range): BP systolic 106–135; BP diastolic 50–64; PULSE 62–90; RESP 16–34; TEMP 37.2–39.3; O2SAT 91–100
--- NOTE | 2022-03-05 05:55 | EKG12_ITS ---
Test Reason : AM EKG Blood Pressure : / mmHG Vent. Rate : 083 BPM Atrial Rate : 083 BPM P-R Int : 220 ms QRS Dur : 128 ms QT Int : 432 ms P-R-T Axes : 051 -25 056 degrees QTc Int : 507 ms Sinus rhythm with 1st degree A-V block Non-specific intra-ventricular conduction block Abnormal ECG Confirmed by SHY GREGORIO, KATT ([id number]), online content editor LEONARD GONZÁLES ([id number]) on 03/06/2022 11:09:07 AM Referred By: MEMO Confirmed By:KATT BEGUM MD
[2022-03-05] MEDS: Vancomycin IV 1,000 MG/200 ML BAG 200 MG IV ×2 (06:14→18:53)
[2022-03-05 06:30] LABS: Hematocrit 26.9 % (40-54); Hemoglobin 9.4 g/dL (13.0-16.5); Mean Corp Hgb Conc 34.9 g/dL (32-36); Mean Corpuscular Hgb 34.3 pg (27.0-32.0); Mean Corpuscular Volume 98.2 fL (80-94); POSITIVE COUNT YES; POSITIVE DIFFERENTIAL YES; POSITIVE MORPHOLOGY YES; Platelet Count 59 K/mm3 (150-450); RBC Distribution Width CV 18.9 % (11.6-14.6); Red Blood Count 2.74 M/mm3 (4.6-6.2); White Blood Count 0.2 K/mm3 (4.4-11.0)
[2022-03-05 06:43] LABS: Differential Indicated MANUAL DIFF
[2022-03-05 06:49] LABS: ALB/GLOB Ratio 0.8 RATIO (0.9-2.4); AST(SGOT) 110 U/L (15-37); Alanine Aminotransfer ALT/SGPT 124 U/L (16-61); Albumin, Serum 2.9 g/dL (3.2-5.0); Alkaline Phosphatase 53 U/L (45-117); Anion Gap 8 (5-15); BUN 23 mg/dL (7-18); BUN/Creat Ratio 21.1 RATIO (10-20); Calcium,Total 8.3 mg/dL (8.5-10.1); Chloride 102 mmol/L (98-107); Creatinine, Serum 1.09 mg/dL (0.70-1.30); EST Glomerular Filtration Rate 72 mL/min (>60); Est Glom Filt Rate - Afr Amer 87 mL/min (>60); Estimated Creatinine Clearance 59.35 ml/min; Globulin 3.5 g/dL (2.2-4.2); Glucose 98 mg/dL (74-106); Potassium 3.7 mmol/L (3.5-5.1); Protein, Total 6.4 g/dL (6.4-8.2); Sodium Level 134 mmol/L (136-145)
[2022-03-05 06:54] LABS: Platelet Estimate MOD DEC (ADEQ); Red Cell Morphology NORM C+C NORMAL (NORM C&C)
[2022-03-05] MEDS: Allopurinol 300 MG Tablet PO (08:16)
[2022-03-05] MEDS: Lisinopril 40 MG Tablet PO (08:16)
[2022-03-05] MEDS: Metoprolol Tartrate 50 MG Tablet PO (08:16)
[2022-03-05] MEDS: amLODIPine 10 MG Tablet PO (08:16)
[2022-03-05] MEDS: Furosemide 20 MG Tablet PO ×2 (08:17→17:05)
[2022-03-05] MEDS: Pyridoxine HCl 100 MG Tablet PO (08:17)
[2022-03-05] MEDS: Flecainide 150 MG Tablet PO ×2 (08:17→21:53)
[2022-03-05] MEDS: Acetaminophen 325 MG Tablet 650 MG PO ×2 (08:20→14:13)
[2022-03-05] MEDS: Potassium Chloride Oral Tablet 20 MEQ PO (08:20)
[2022-03-05] MEDS: 0.9% Normal Saline 1,000 ML 100 ML IV ×2 (08:24→17:11)
--- NOTE | 2022-03-05 09:44 | PN.HOSP_ITS ---
Subjective Subjective Feels okay today, no issues overnight. He does have of fever again. Objective Data Objective Data Vital Signs: Vital Signs Temp Pulse Resp BP Pulse Ox FiO2 102.8 F H 87 16 135/62 H 93 21 03/05/22 08:13 03/05/22 08:16 03/05/22 08:13 03/05/22 08:16 03/05/22 08:13 03/05/22 03:00 Oxygen Delivery Method Room Air Weight: 216 lb 11.43 oz Body Mass Index (BMI) 34.3 Intake & Output: Intake and Output for Last 24 Hours 03/04/22 03/05/22 03/06/22 03:59 03:59 03:59 Intake Total 1780 / 1780 1365 / 1365 Balance 1780 / 1780 1365 / 1365 Lab / Micro Data Result Diagrams: 03/05/22 06:10 03/05/22 06:10 Labs: Laboratory Results - last 24 hr 03/04/22 12:10: WBC 0.2 L*, RBC 2.88 L, Hgb 9.8 L, Hct 28.2 L, MCV 97.9 H, MCH 34.0 H, MCHC 34.8, RDW Std Deviation 69.1 H, RDW Coeff of Lily 19.1 H, Plt Count 77 L, MPV 10.7, Immature Gran % (Auto) 0.000, Neut % (Auto) 5.6 L, Lymph % (Auto) 83.3 H, [place] % (Auto) 11.1 H, Eos % (Auto) 0.0, Baso % (Auto) 0.0, Absolute Neuts (auto) 0.0 L, Absolute Lymphs (auto) 0.15 L, Nucleated RBC % 0, Differential Comment , Diff Path Review May foll, Platelet Estimate MKD DEC, Anisocytosis 2+ 03/04/22 12:10: Sodium 132 L, Potassium 3.5, Chloride 99, Carbon Dioxide 23.0, Anion Gap 10, BUN 25 H, Creatinine 1.16, Estim Creat Clear Calc 55.76, Est GFR (MDRD) Af Amer 81, Est GFR (MDRD) Non-Af 67, BUN/Creatinine Ratio 21.6 H, Glucose 119 H, Calcium 8.4 L, Total Bilirubin 0.80, AST 96 H, ALT 105 H, Alkaline Phosphatase 59, Troponin I High Sens 14, Total Protein 6.9, Albumin 3.1 L, Globulin 3.8, Albumin/Globulin Ratio 0.8 L, TSH 0.95 03/04/22 18:15: Lactic Acid 1.8 03/04/22 21:53: Procalcitonin 0.26 H 03/04/22 21:53: PT 16.6 H, INR 1.4, APTT 31.4 03/05/22 06:10: WBC 0.2 L*, RBC 2.74 L, Hgb 9.4 L, Hct 26.9 L, MCV 98.2 H, MCH 34.3 H, MCHC 34.9, RDW Std Deviation 68.0 H, RDW Coeff of Lily 18.9 H, Plt Count 59 L, MPV 10.0, Neut % (Auto) Not Reportable, Absolute Neuts (auto) Not Reportable, Absolute Lymphs (auto) Not Reportable, Diff Path Review May , Platelet Estimate MOD DEC, RBC Morphology NORM C+C 03/05/22 06:10: Sodium 134 L, Potassium 3.7, Chloride 102, Carbon Dioxide 24.0, Anion Gap 8, BUN 23 H, Creatinine 1.09, Estim Creat Clear Calc 59.35, Est GFR (MDRD) Af Amer 87, Est GFR (MDRD) Non-Af 72, BUN/Creatinine Ratio 21.1 H, Glucose 98, Calcium 8.3 L, Total Bilirubin 0.80, AST 110 H, ALT 124 H, Alkaline Phosphatase 53, Total Protein 6.4, Albumin 2.9 L, Globulin 3.5, Albumin/Globulin Ratio 0.8 L Micro: Microbiology 03/04/22 21:35 Mucosa - Nasopharyngeal Respiratory Panel (PCR) - Final 03/04/22 12:15 Nasal Secretion SARS-CoV-2 Antigen (Rapid) - Final Radiography Diagnostic Testing: Radiology Impression Brain CT 03/04/22 11:57 IMPRESSION: Chronic involutional changes of the brain. Electronically Signed: Emanuel Garduno MD at 13:22 EDT , Chest X-Ray 03/04/22 12:32 IMPRESSION: No acute abnormality present. Electronically Signed: Enmanuel Shah MD at 13:03 EDT , Physical Exam Const alert, oriented x3 and no apparent distress General Appearance: cooperative HEENT normocephalic and moist oral mucous membranes Eyes PERRL, EOMs intact bilaterally and conjunctivae normal Neck supple and no JVD Resp normal respiratory effort, no retractions and no use of accessory muscles Auscultation: diminished lung sounds; Negative for crackles, rales, rhonchi or wheezes Cardio regular rate, regular rhythm, S1 normal heart sound, S2 normal heart sound and no murmurs GI soft to palpation, non-tender and non-distended; Negative for hepatosplenomegaly Extremity no clubbing, cyanosis or edema Skin no rashes or lesions noted Neuro no focal motor deficits and no sensory deficits noted Psych affect normal Appearance: appropriate Assessment & Plan Assessment/Plan (1) Pancytopenia: (2) Neutropenic fever: PLAN: Plan 1. Acute neutropenic fever with pancytopenia possibly due to aplastic anemia from doxycycline/colchicine or an acute leukemia/near syncope versus seizures ? Continue with vancomycin and Zosyn ? Cultures are pending ? We will stop his colchicine and continue to monitor him while awaiting transfer to [facility] as he will also likely need a bone marrow potentially ? Does feel a bit better today, though he did spike a temperature this morning ? Awaiting EEG, has a pacemaker and so we will hold off on MRI 2. Chronic systolic CHF/HTN/HLD/paroxysmal A. fib/sick sinus syndrome status post pacemaker/status post aortic root repair and AVR ? Blood pressure stable, continue with his home medications ? Continue with his statin ? He did have an ablation done for his A. fib and is currently not on anticoagulation, his aspirin has been held ? We will hold colchicine given the risk for aplastic anemia, he was started on this for pericarditis after his cardiac surgery DVT: SCDs ? Charges/Coding Visit Charges Inpatient E&M: 05663 Subs Hosp L2
--- NOTE | 2022-03-05 09:59 | CON.PCM.ON_ITS ---
Assessment & Plan Assessment/Plan (1) Pancytopenia: Status: Acute Code(s): D61.818 - Other pancytopenia Plan: 67-year-old male with severe acute pancytopenia. The differential diagnosis at this time can be narrowed down to: 1. Aplastic anemia a rare idiosyncratic reaction suspect colchicine. 2. An acute primary bone marrow disease such as acute myeloid leukemia with peripheral cytopenias. Recommendation: Discussed with hospitalist over the phone 1. Discontinue colchicine. 2. Transfer to a tertiary care center for further management of acute aplastic anemia/acute myeloid leukemia. Patient requested [facility] and a vacant bed is awaited. Patient was offered transfer to [facility] but he declined. 3. For febrile neutropenia continue broad-spectrum empiric antibiotic coverage after panculture as already in progress. 4. Supportive blood product transfusion for hemoglobin less than 8 g per DL (keeping in mind cardiac disease) and platelets less than 10K (in absence of any significant bleeding other than cutaneous or minor mucosal bleeds). 5. A bone marrow aspirate and biopsy is indicated, however advise awaiting transfer to tertiary care center. 6. Follow CBC with differential daily until transfer. 7. Nonpharmacologic VTE prophylaxis. 8. Defer to cardiology/primary service use of low-dose aspirin for antiplatelet effect weighing benefits versus risks but would discontinue if platelets are less than 30 K or there is active bleeding. Impression and recommendation discussed with the patient. Helen Mariee MD Outside Salesman, [facility] Divisions of Medical Oncology & Hematology Department of Internal Medicine [place] [phone] This note was generated using a voice recognition system software. Although it was reviewed by the author prior to finalization, it may still contain incorrect words, spelling, and punctuation that were not noted when reviewing prior to saving. If a clinically significant typo or inaccurately typed phrase is noted, please notify the author. (2) Neutropenic fever: Status: Acute Code(s): D70.9 - Neutropenia, unspecified; R50.81 - Fever presenting with conditions classified elsewhere HPI Consult Data Date of Service:: 03/05/22 PCP / Referring Provider: Dr. Willis Fish MD Attending: Dr. Waldo Sears MD Chief Complaint Chief Complaint: Fatigue, possible seizure History of Present Illness History of Present Illness: 67-year-old gentleman hospitalized with a few weeks history of increasing fatigue, possible seizure on March 04, and severe pancytopenia. Patient's medical history is notable for valvular heart disease status post AVR in October 2021 complicated by pericarditis for which he has been on colchicine for approximately 6 weeks and a recent left forearm infection possible tick bite (no witnessed tick but patient was out in his backyard clearing weeds and poison jazz) for which he has been on oral doxycycline for approximately 2 weeks. The patient on admission was noted to have severe pancytopenia. An outside CBC from [facility] hospitalization in October 2021 showed normal WBC, a mild normocytic anemia with a hemoglobin 10.2 g per DL and a platelet count of 240 K. A CBC from January 2021 at [facility] lab was essentially normal. Advanced Directives Power of Brand Director: Yes Living Will: Yes FORMERLY [facility], [facility] Medical History CHF (congestive heart failure), NYHA class III Chronic systolic (congestive) heart failure Essential (primary) hypertension HLD (hyperlipidemia) Hypokalemia Malfunction of electrode lead of cardiac pacemaker Nicotine dependence Non-ischemic cardiomyopathy Nonobstructive atherosclerosis of coronary artery Nonrheumatic aortic (valve) insufficiency Nonspecific abnormal unspecified cardiovascular function study Palpitations Paroxysmal atrial fibrillation Paroxysmal atrial tachycardia Pericardial effusion (11/06/21) Sick sinus syndrome Sinus node dysfunction Sleep apnea Syncope and collapse White coat syndrome with hypertension Home Medications allopurinol 300 mg tablet 300 mg PO DAILY gout 09/08/17 [History Last Taken 03/04/22] pyridoxine (vitamin B6) 100 mg tablet 100 mg PO DAILY SUPPLEMENT 04/05/20 [History Last Taken 03/04/22] tizanidine 4 mg tablet 4 mg PO QHS PRN muscle spasticity 04/05/20 [History Last Taken Unknown] flecainide 150 mg tablet 150 mg PO BID bp #180 tabs 04/08/21 [Rx Last Taken 03/04/22] atorvastatin 40 mg tablet 40 mg PO QHS cholesterol #90 tabs 05/20/21 [Rx Last Taken 03/03/22] amlodipine 10 mg tablet 10 mg PO DAILY BP 03/04/22 [History Last Taken 03/04/22] aspirin 81 mg tablet,delayed release (Adult Aspirin Regimen) 81 mg PO DAILY HEALTH 03/04/22 [History Last Taken 03/04/22] colchicine 0.6 mg tablet 0.3 mg PO BID GOUT 03/04/22 [History Last Taken 03/04/22] doxycycline hyclate 100 mg capsule 100 mg PO BID INFECTION 03/04/22 [History Last Taken 03/04/22] furosemide 40 mg tablet (Lasix) 20 mg PO BID FLUID 03/04/22 [History Last Taken 03/04/22] lisinopril 40 mg tablet 40 mg PO DAILY BP 03/04/22 [History Last Taken 03/04/22] loperamide 2 mg capsule (Imodium A-D) 2 mg PO Q4H PRN Diarrhea 03/04/22 [History Last Taken 03/04/22] metoprolol tartrate 50 mg tablet 50 mg PO BID HEART 03/04/22 [History Last Taken 03/04/22] potassium chloride 20 mEq tablet,extended release(part/cryst) (Klor-Con M) 20 meq PO DAILY SUPPLEMENT 03/04/22 [History Last Taken 03/04/22] Allergy/AdvReac Type Severity Reaction Status Date / Time No Known Allergies Allergy Verified 03/04/22 11:47 Family History (Updated 03/04/22 @ 21:[address] Marcelle Phillips MD) Father CAD (coronary artery disease) Myocardial infarction Hypertension Brother Hypertension Cancer CAD (coronary artery disease) Myocardial infarction Leukemia Surgical History H/O aortic aneurysm repair (10/14/21) History of aortic valve repair (10/14/21) History of knee replacement History of left heart catheterization (10/11/21) History of radiofrequency ablation procedure for cardiac arrhythmia (02/2008) Presence of permanent cardiac pacemaker (10/14/21) Status post pericardiocentesis (11/07/21) Social History (Updated 03/04/22 @ 21:[address] Marcelle Phillips MD) household members: spouse Smoking Status: Former smoker how long ago did patient quit smoking: Quit 6 months prior, smoked cig socially ~1-3 when with friends since teen. alcohol intake: current alcohol intake frequency: a few times a month Alcohol type: beer substance use type: does not use caffeine: Yes Type: coffee Number of servings: 2 what type of physical activity do you participate in: none ROS Constitutional Constitutional: Reports chills, fatigue, fever(s), weight loss and other Details: Fever and chills and sweats onset was March 04, 2022. Patient reported approximately 10 pound weight loss over the course of the past few months that he attributes to poor dentures with preserved appetite ; Denies night sweats or poor appetite ENT HEENT: Denies dysphagia, hoarseness, loss taste/smell or sore throat Cardiovascular Cardiovascular: Reports diaphoresis; Denies chest pain, edema or palpitations Respiratory/Chest Respiratory/Chest: Denies chest tightness, cough or hemoptysis Gastrointestinal Gastrointestinal: Reports diarrhea; Denies abdominal pain, anorexia, dysphagia, hematochezia, melena, nausea or vomiting Genitourinary Genitourinary: Denies change in urinary stream, dysuria or hematuria Musculoskeletal Musculoskeletal: Denies back pain Integumentary Integumentary: Reports other Details: Lesion on left forearm, treated with antibiotics ; Denies rash Neurologic Neurologic: Reports other Details: Questionable syncope/seizure on March 04, 2022 ; Denies abnormal speech, focal weakness, headache(s) or numbness Psychiatric Psychiatric: Denies anxiety or depression Endocrine Endocrinology: Denies flushing Hematologic/Lymphatic Hematologic/Lymphatic: Denies easy bleeding, easy bruising or lymphadenopathy Physical Exam Narrative ECOG 1 Const alert, oriented x3, no apparent distress and average body habitus General Appearance: cooperative, comfortable and diaphoretic Orientation / Consciousness: oriented to person, oriented to place and oriented to time HEENT normocephalic and moist oral mucous membranes Head and Scalp: atraumatic Eyes no scleral icterus Neck no lymphadenopathy and no JVD General: Negative for lymphadenopathy Lymph Lymphatic: no lymphadenopathy noted Chest Chest Narrative: Pacemaker, scar of recent cardiac surgery Resp normal respiratory effort and clear to auscultation bilaterally Cardio regular rate, regular rhythm and no JVD GI soft to palpation, non-tender and no masses Bladder / Kidney Exam: no CVA tenderness Groin / Perineum Exam: Negative for inguinal lymphadenopathy Extremity no clubbing, cyanosis or edema Skin no jaundice Lesions: lesion noted Left forearm localized area suspicious for cellulitis Neuro CN's II-XII intact bilaterally, moves all extremities and no focal motor deficits Neuro Narrative: By gross testing Psych mental status grossly normal, cooperative, affect normal and speech normal Vital Signs Temperature 102.8 F H 03/05/22 08:13 Temperature Source Oral 03/05/22 08:13 Pulse Rate 87 03/05/22 08:16 Pulse Strength Normal (2+) 03/04/22 22:00 Respiratory Rate 16 03/05/22 08:13 Respiratory Pattern Tachypnea 03/05/22 03:00 Blood Pressure 135/62 H 03/05/22 08:16 Blood Pressure Mean 86 03/05/22 08:13 Blood Pressure Source Monitor 03/05/22 08:13 Blood Pressure Position Semi-Fowlers 03/05/22 08:13 Blood Pressure Location Left Arm 03/05/22 08:13 Pulse Ox 93 03/05/22 08:13 Oxygen Delivery Method Room Air 03/05/22 08:13 Fraction of Inspired Oxygen (FIO2) 21 03/05/22 03:00 Laboratory Results - last 24 hr 03/04/22 12:10: WBC 0.2 L*, RBC 2.88 L, Hgb 9.8 L, Hct 28.2 L, MCV 97.9 H, MCH 34.0 H, MCHC 34.8, RDW Std Deviation 69.1 H, RDW Coeff of Lily 19.1 H, Plt Count 77 L, MPV 10.7, Immature Gran % (Auto) 0.000, Neut % (Auto) 5.6 L, Lymph % (Auto) 83.3 H, [place] % (Auto) 11.1 H, Eos % (Auto) 0.0, Baso % (Auto) 0.0, Absolute Neuts (auto) 0.0 L, Absolute Lymphs (auto) 0.15 L, Nucleated RBC % 0, Differential Comment , Diff Path Review May foll, Platelet Estimate MKD DEC, Anisocytosis 2+ 03/04/22 12:10: Sodium 132 L, Potassium 3.5, Chloride 99, Carbon Dioxide 23.0, Anion Gap 10, BUN 25 H, Creatinine 1.16, Estim Creat Clear Calc 55.76, Est GFR (MDRD) Af Amer 81, Est GFR (MDRD) Non-Af 67, BUN/Creatinine Ratio 21.6 H, Glucose 119 H, Calcium 8.4 L, Total Bilirubin 0.80, AST 96 H, ALT 105 H, Alkaline Phosphatase 59, Troponin I High Sens 14, Total Protein 6.9, Albumin 3.1 L, Globulin 3.8, Albumin/Globulin Ratio 0.8 L, TSH 0.95 03/04/22 18:15: Lactic Acid 1.8 03/04/22 21:53: Procalcitonin 0.26 H 03/04/22 21:53: PT 16.6 H, INR 1.4, APTT 31.4 03/05/22 06:10: WBC 0.2 L*, RBC 2.74 L, Hgb 9.4 L, Hct 26.9 L, MCV 98.2 H, MCH 34.3 H, MCHC 34.9, RDW Std Deviation 68.0 H, RDW Coeff of Lily 18.9 H, Plt Count 59 L, MPV 10.0, Neut % (Auto) Not Reportable, Absolute Neuts (auto) Not Reportable, Absolute Lymphs (auto) Not Reportable, Diff Path Review January, Platelet Estimate MOD DEC, RBC Morphology NORM C+C 03/05/22 06:10: Sodium 134 L, Potassium 3.7, Chloride 102, Carbon Dioxide 24.0, Anion Gap 8, BUN 23 H, Creatinine 1.09, Estim Creat Clear Calc 59.35, Est GFR (MDRD) Af Amer 87, Est GFR (MDRD) Non-Af 72, BUN/Creatinine Ratio 21.1 H, Glucose 98, Calcium 8.3 L, Total Bilirubin 0.80, AST 110 H, ALT 124 H, Alkaline Phosphatase 53, Total Protein 6.4, Albumin 2.9 L, Globulin 3.5, Albumin/Globulin Ratio 0.8 L Laboratory Tests 01/08/21 03/04/22 03/05/22 10:57 12:10 06:10 WBC 8.7 0.2 L* 0.2 L* Hgb 14.3 9.8 L 9.4 L Plt Count 174 77 L 59 L Absolute Neuts (auto) 6.6 0.0 L Not Reportable I personally reviewed patient's peripheral blood smear, essentially empty of myeloid elements with rare mature looking lymphocytes, platelets markedly decreased and red blood cells essentially normocytic normochromic with no nucleated red blood cells. Microbiology 03/04/22 21:35 Mucosa - Nasopharyngeal Respiratory Panel (PCR) - Final 03/04/22 12:15 Nasal Secretion SARS-CoV-2 Antigen (Rapid) - Final Diagnostic Data Brain CT 03/04/22 11:57 IMPRESSION: Chronic involutional changes of the brain. Electronically Signed: Emanuel Garduno MD at 13:22 EDT , Chest X-Ray 03/04/22 12:32 IMPRESSION: No acute abnormality present. Electronically Signed: Enmanuel Shah MD at 13:03 EDT ,
--- NOTE | 2022-03-05 10:21 | TELEMED_ITS ---
[facility] Tele[facility] has confirmed receipt of a request for visit. This document confirms receipt of the order initiating the consult. To find the results of the consultation, please view the patient's reports for the scanned Telemed Consult.
[2022-03-05 10:48] LABS: M R Staph aureus DNA By PCR Negative (Negative); Probe Check PASS; Specimen Processing Control PASS
--- NOTE | 2022-03-05 11:05 | CASEMGMT ---
CECI TA assessment: Face to Face with patient for initial transition planning/care coordination assessment. CECI TA introduced self and role at [facility], pt voices understanding and consents to assessment. Pt's is at bedside during assessment and answers most questions for pt. Pt is A/Ox4 and answers questions appropriately.? Pt is lying in bed in no distress on room air. Care providers, pharmacy,?and demographics verified/updated. ? Presentation: Pt w/ seizure-like activity at PCP office-pt was there for f/u for possible tick bite Admitting dx: Pancytopenia, neutropenic fever PCP: Abe Specialists: Tim, pt seeing here during admit for 1st time and will likely follow with him per as she sees [facility] Preferred Pharmacy: [facility] Insurance: MMO, MCR A Prescription Benefit:?MMO Living Will/HPOA: Pt has LW/HPOA and is aware that they are not on file at [facility]. Pt's , Josefa Page, is HPOA. LNOK: Josefa Page, /HPOA; Anmol Page, son Living Arrangements: Pt lives with in 1 story home with no steps and states no concerns at home. Pt is independent with ADL's. Transportation: Pt drives self and states no transportation concerns. DME/HHC: Pt has a cpap at home and states no need for any further DME. unsure what DME company cpap is from. Pt has no hx of HHC or SNF. Pt/ state no concerns with pt going home at time of discharge. Pt is retired. Pt states does not smoke cigarettes or drink ETOH. Pt/ voice no further concerns/needs. CM to follow for any further discharge planning/needs. Advised pt/ to ask for CM if any further questions/concerns/needs arise, voices understanding. Pt Goal: Home ? Plan: [place] CECI TA
[2022-03-05 12:20] LABS: Pathologist Review Reviewed
[2022-03-05 12:21] LABS: Pathologist Review Reviewed
[2022-03-05 16:53] LABS: Mucous, Urine 0 SEEN /hpf (<or=2+); Squamous Epithelial Cells - UA 0 SEEN /hpf (0-5); White Blood Cells 0 SEEN /hpf (0-5)
[2022-03-05 17:18] LABS: Color, Urine Yellow (Yellow); Glucose, Dipstick Normal (Normal); Ketone-Dipstick Negative (Negative); Leukocyte Esterase-Dipstick Negative /ul (Negative); Nitrite-Dipstick Negative (Negative); Occult Blood-Urine 10 /ul (Negative); Protein-Dipstick 15 mg/dl (Negative); Urine Bilirubin Dipstick Negative (Negative); Urine Clarity Sl. Cloudy (Clear); Urine Urobilinogen Normal (Normal)
[2022-03-05 17:44] LABS: Bacteria 1+ /hpf (None Seen); Red Blood Cells-Urine 0-5 SEEN /hpf (0-5)
[2022-03-05] MEDS: Atorvastatin Calcium 40 MG Tablet PO (21:53)
[2022-03-06] VITALS (15 sets, daily range): BP systolic 84–139; BP diastolic 54–75; PULSE 60–94; RESP 16–18; TEMP 36.7–38.3; O2SAT 94–100
[2022-03-06] MEDS: 0.9% Normal Saline 1,000 ML 100 ML IV ×2 (04:14→13:58)
[2022-03-06 06:37] LABS: Absolute Lymphocyte Count 0.18 X10^3/uL (0.83-4.51); Hematocrit 24.6 % (40-54); Hemoglobin 8.3 g/dL (13.0-16.5); Lymphocyte # 0.18 X10^3/ul (0.83-4.51); Lymphocyte % 85.7 % (19-41); Mean Corp Hgb Conc 33.7 g/dL (32-36); Mean Corpuscular Hgb 34.9 pg (27.0-32.0); Mean Corpuscular Volume 103.4 fL (80-94); Monocyte# 0.02 X10^3/uL; Monocyte% 9.5 % (0-10); NRBC Flagged by Analyzer 9.5 % (0-5); Neutrophil # 0.01 X10^3/uL (2.7-7.7); Neutrophil % 4.8 % (47-70); POSITIVE COUNT YES; POSITIVE DIFFERENTIAL YES; POSITIVE MORPHOLOGY YES; Platelet Count 18 K/mm3 (150-450); Red Blood Count 2.38 M/mm3 (4.6-6.2); White Blood Count 0.2 K/mm3 (4.4-11.0)
[2022-03-06 06:52] LABS: Differential Indicated SCAN CRITERIA MET
[2022-03-06] MEDS: Vancomycin IV 1,000 MG/200 ML BAG 200 MG IV (06:55)
[2022-03-06 07:05] LABS: Anion Gap 10 (5-15); BUN 16 mg/dL (7-18); BUN/Creat Ratio 15.2 RATIO (10-20); Calcium,Total 7.4 mg/dL (8.5-10.1); Chloride 100 mmol/L (98-107); Creatinine, Serum 1.05 mg/dL (0.70-1.30); EST Glomerular Filtration Rate 75 mL/min (>60); Est Glom Filt Rate - Afr Amer 91 mL/min (>60); Estimated Creatinine Clearance 61.61 ml/min; Glucose 100 mg/dL (74-106); Potassium 3.2 mmol/L (3.5-5.1); Sodium Level 133 mmol/L (136-145); Vancomycin, Trough Level 20.9 ug/mL (5.0-15.0)
[2022-03-06 07:12] LABS: Anisocytosis 2+; Macrocytosis 2+
--- NOTE | 2022-03-06 07:53 | PCM.RX.CS ---
Consult Pharmacy has been consulted to manage selected antiobiotic: Vancomycin Type of Consult: Follow-up Suspected Infection: Other Prior Doses of Antibiotics Received/Current Regimen: 1500mg iv loading dose then 1000mg iv q12h. Labs: Sodium 133 mmol/L (136-145) L 03/06/22 06:25 Potassium 3.2 mmol/L (3.5-5.1) L 03/06/22 06:25 Chloride 100 mmol/L (98-107) 03/06/22 06:25 Carbon Dioxide 23.0 mmol/L (21.0-32.0) 03/06/22 06:25 Anion Gap 10 (5-15) 03/06/22 06:25 BUN 16 mg/dL (7-18) 03/06/22 06:25 Creatinine 1.05 mg/dL (0.70-1.30) 03/06/22 06:25 Est GFR (MDRD) Af Amer 91 mL/min (>60) 03/06/22 06:25 Est GFR (MDRD) Non-Af 75 mL/min (>60) 03/06/22 06:25 BUN/Creatinine Ratio 15.2 RATIO (10-20) 03/06/22 06:25 Glucose 100 mg/dL (74-106) 03/06/22 06:25 Vancomycin Trough 20.9 ug/mL (5.0-15.0) H 03/06/22 06:25 Microbiology: Microbiology 03/05/22 12:18 Stool Enteric Bacteriology - Final 03/05/22 12:18 Stool C. difficile DNA Amplification - Final 03/04/22 21:35 Mucosa - Nasopharyngeal Respiratory Panel (PCR) - Final 03/04/22 12:15 Nasal Secretion SARS-CoV-2 Antigen (Rapid) - Final Weight used for dosin.6 kg Estimated Creatinine Clearance: 62ml/min Goal Trough: 15-20 mcg/mL Pharmacy Plan for Drug Dosing: Trough today 20.9 (goal 15-20mcg/ml) and drawn ~11.5hrs post dose. Renal function slightly improved (Cr 1.16 6.28 , 1.05 6.30). Since trough only slightly above desired range, will keep dose the same for now and get another trough this evening. Pharmacy Service will continue to monitor and adjust dosing as required. Follow-Up Labs: Trough Vancomycin - .. @1830 before 1900 dose
[2022-03-06] MEDS: amLODIPine 10 MG Tablet PO (08:13)
[2022-03-06] MEDS: Metoprolol Tartrate 50 MG Tablet PO ×2 (08:13→19:57)
[2022-03-06] MEDS: Potassium Chloride Oral Tablet 20 MEQ PO (08:13)
[2022-03-06] MEDS: Furosemide 20 MG Tablet PO (08:13)
[2022-03-06] MEDS: Pyridoxine HCl 100 MG Tablet PO (08:13)
[2022-03-06] MEDS: Allopurinol 300 MG Tablet PO (08:13)
[2022-03-06] MEDS: Flecainide 150 MG Tablet PO ×2 (08:13→19:58)
[2022-03-06] MEDS: Lisinopril 40 MG Tablet PO (08:13)
[2022-03-06] MEDS: Acetaminophen 325 MG Tablet 650 MG PO ×2 (11:15→19:58)
[2022-03-06] MEDS: Loperamide 2 MG Capsule 4 MG PO ×2 (11:16→19:58)
[2022-03-06] MEDS: 0.9% Normal Saline 1,000 ML 500 ML IV (14:29)
[2022-03-06 19:09] LABS: Vancomycin, Trough Level 12.7 ug/mL (5.0-15.0)
--- NOTE | 2022-03-06 19:30 | PN.HOSP_ITS ---
Subjective Subjective Patient was seen and examined today, I talked at length with his family members who were present at the time of my examination, patient is still pancytopenic, he was little bit hypotensive today was given IV fluids. Patient's family had questions about the patient not being on colchicine at this time, colchicine can cause aplastic anemia and the family is aware of this. Patient was also reducing the amount of colchicine that he was taking when he was admitted to the hospital here. Objective Data Objective Data Vital Signs: Vital Signs Temp Pulse Resp BP Pulse Ox O2 Del Method FiO2 98.8 F 63 16 106/64 100 CPAP 21 03/06/22 16:22 03/06/22 16:22 03/06/22 16:22 03/06/22 16:22 03/06/22 16:03/06/22 16:03/05/22 03:00 Oxygen Delivery Method CPAP Weight: 99.2 kg Body Mass Index (BMI) 34.3 Intake & Output: Intake and Output for Last 24 Hours 03/04/22 03/05/22 03/06/22 23:59 23:59 23:59 Intake Total 1580 / 1780 4033.33 / 4033.33 4231.67 / 4231.67 Balance 1580 / 1780 4033.33 / 4033.33 4231.67 / 4231.67 Lab / Micro Data Result Diagrams: 03/07/22 06:50 03/07/22 06:50 Labs: Laboratory Results - last 24 hr 03/06/22 06:25: Vancomycin Trough 20.9 H 03/06/22 06:25: WBC 0.2 L*, RBC 2.38 L, Hgb 8.3 L, Hct 24.6 L, MCV 103.4 H D, MCH 34.9 H, MCHC 33.7, RDW Std Deviation 73.0 H, RDW Coeff of Lily 19.0 H, Plt Count 18 L*, Immature Gran % (Auto) 0.000, Neut % (Auto) 4.8 L, Lymph % (Auto) 85.7 H, [place] % (Auto) 9.5, Eos % (Auto) 0.0, Baso % (Auto) 0.0, Absolute Neuts (auto) 0.0 L, Absolute Lymphs (auto) 0.18 L, Nucleated RBC % 9.5 H, Diff Path Review January, Anisocytosis 2+, Macrocytosis 2+ 03/06/22 06:25: Sodium 133 L, Potassium 3.2 L, Chloride 100, Carbon Dioxide 23.0, Anion Gap 10, BUN 16, Creatinine 1.05, Estim Creat Clear Calc 61.61, Est GFR (MDRD) Af Amer 91, Est GFR (MDRD) Non-Af 75, BUN/Creatinine Ratio 15.2, Glucose 100, Calcium 7.4 L 03/06/22 18:20: Vancomycin Trough 12.7 Micro: Microbiology 03/05/22 12:18 Stool Enteric Bacteriology - Final 03/05/22 12:18 Stool C. difficile DNA Amplification - Final 03/04/22 21:35 Mucosa - Nasopharyngeal Respiratory Panel (PCR) - Final 03/04/22 12:15 Nasal Secretion SARS-CoV-2 Antigen (Rapid) - Final Physical Exam Const alert, oriented x3, no apparent distress and healthy appearing General Appearance: cooperative, well kempt and well developed Orientation / Consciousness: awake, oriented to person, oriented to place and oriented to time HEENT normocephalic and moist oral mucous membranes Eyes PERRL, EOMs intact bilaterally and conjunctivae normal Neck nuchal rigidity, supple, no JVD, thyroid normal and no carotid bruits General: trachea midline Resp normal respiratory effort and clear to auscultation bilaterally Auscultation: Negative for rales, rhonchi or wheezes Cardio regular rate, regular rhythm, no murmurs, no rub and no gallops GI normal to inspection, nondistended, normoactive bowel sounds, soft to palpation, non-tender and non-distended Extremity no clubbing, cyanosis or edema Skin no rashes or lesions noted General Skin Exam: no breakdown Neuro oriented x3, CN's II-XII intact bilaterally, no focal motor deficits and no sensory deficits noted Sensorium / Orientation: awake and alert Speech: speech normal Psych affect normal Assessment & Plan Assessment/Plan (1) Pancytopenia: PLAN: Plan 1. Acute pancytopenia-etiology unclear at this point, monitor CBC, patient remains on antibiotics at this time, we are awaiting transfer to [facility] in [facility] for further care. #2 neutropenic fever-due to the patient's severe pancytopenia, he remains on IV antibiotics #3 essential hypertension-patient is currently on Norvasc, lisinopril, and furosemide #4 hyperlipidemia-patient is on Lipitor #5 paroxysmal atrial fibrillation-patient is currently on Tambocor #6 obstructive sleep apnea-patient uses CPAP nightly Charges/Coding Visit Charges Inpatient E&M: 30553 Subs Hosp L2
--- NOTE | 2022-03-06 19:48 | PCM.RX.CS ---
Consult Pharmacy has been consulted to manage selected antiobiotic: Vancomycin Type of Consult: Follow-up Prior Doses of Antibiotics Received/Current Regimen: Medications Vancomycin HCl 1,000 mg/ (Sodium Chloride) 200 mls @ 200 mls/hr IV Q12H BARBER Last Admin: 03/06/22 18:32 Dose: 200 mls/hr Labs: Sodium 133 mmol/L (136-145) L 03/06/22 06:25 Potassium 3.2 mmol/L (3.5-5.1) L 03/06/22 06:25 Chloride 100 mmol/L (98-107) 03/06/22 06:25 Carbon Dioxide 23.0 mmol/L (21.0-32.0) 03/06/22 06:25 Anion Gap 10 (5-15) 03/06/22 06:25 BUN 16 mg/dL (7-18) 03/06/22 06:25 Creatinine 1.05 mg/dL (0.70-1.30) 03/06/22 06:25 Est GFR (MDRD) Af Amer 91 mL/min (>60) 03/06/22 06:25 Est GFR (MDRD) Non-Af 75 mL/min (>60) 03/06/22 06:25 BUN/Creatinine Ratio 15.2 RATIO (10-20) 03/06/22 06:25 Glucose 100 mg/dL (74-106) 03/06/22 06:25 Vancomycin Trough 12.7 ug/mL (5.0-15.0) 03/06/22 18:20 Microbiology: Microbiology 03/05/22 12:18 Stool Enteric Bacteriology - Final 03/05/22 12:18 Stool C. difficile DNA Amplification - Final 03/04/22 21:35 Mucosa - Nasopharyngeal Respiratory Panel (PCR) - Final 03/04/22 12:15 Nasal Secretion SARS-CoV-2 Antigen (Rapid) - Final Goal Trough: 15-20 mcg/mL Pharmacy Plan for Drug Dosing: Trough below goal. Level significantly different than expected based on previous level. Recommend to continue and check before next dose. Pharmacy Service will continue to monitor and adjust dosing as required. Follow-Up Labs: Trough Vancomycin - 03/07 @ 0630
[2022-03-06] MEDS: Atorvastatin Calcium 40 MG Tablet PO (19:58)
[2022-03-07] VITALS (13 sets, daily range): BP systolic 105–127; BP diastolic 57–68; PULSE 61–78; RESP 17–18; TEMP 36.5–36.7; O2SAT 97–100
[2022-03-07] MEDS: 0.9% Normal Saline 1,000 ML 100 ML IV ×2 (04:33→16:59)
[2022-03-07 07:15] LABS: Absolute Lymphocyte Count 0.18 X10^3/uL (0.83-4.51); Hematocrit 24.9 % (40-54); Hemoglobin 8.4 g/dL (13.0-16.5); Lymphocyte # 0.18 X10^3/ul (0.83-4.51); Mean Corp Hgb Conc 33.7 g/dL (32-36); Mean Corpuscular Hgb 33.7 pg (27.0-32.0); Mean Platelet Vol. 10.8 fl (6.2-12.0); Monocyte# 0.02 X10^3/uL; NRBC Flagged by Analyzer 0 % (0-5); POSITIVE COUNT YES; POSITIVE DIFFERENTIAL YES; POSITIVE MORPHOLOGY YES; RBC Distribution Width CV 19.1 % (11.6-14.6); RBC Distribution Width SD 70.6 fl (35.1-43.9); Red Blood Count 2.49 M/mm3 (4.6-6.2)
[2022-03-07 07:19] LABS: Differential Indicated SCAN CRITERIA MET
[2022-03-07 07:38] LABS: Anion Gap 6 (5-15); BUN 13 mg/dL (7-18); BUN/Creat Ratio 13.6 RATIO (10-20); Calcium,Total 7.7 mg/dL (8.5-10.1); Chloride 105 mmol/L (98-107); Creatinine, Serum 0.96 mg/dL (0.70-1.30); EST Glomerular Filtration Rate 83 mL/min (>60); Est Glom Filt Rate - Afr Amer 101 mL/min (>60); Estimated Creatinine Clearance 67.38 ml/min; Glucose 84 mg/dL (74-106); Potassium 3.4 mmol/L (3.5-5.1); Sodium Level 135 mmol/L (136-145)
[2022-03-07 07:40] LABS: Vancomycin, Trough Level 11.6 ug/mL (5.0-15.0)
[2022-03-07 08:10] LABS: Anisocytosis 1+; Platelet Estimate MKD DEC (ADEQ); Red Cell Morphology N CHROM NORMAL (NORM C&C)
[2022-03-07 08:12] LABS: Platelet Count 39 K/mm3 (150-450); White Blood Count 0.2 K/mm3 (4.4-11.0)
--- NOTE | 2022-03-07 08:12 | PCM.RX.CS ---
Consult Pharmacy has been consulted to manage selected antiobiotic: Vancomycin Type of Consult: Follow-up Suspected Infection: Other Prior Doses of Antibiotics Received/Current Regimen: 1000mg iv q12h. Labs: Sodium 135 mmol/L (136-145) L 03/07/22 06:50 Potassium 3.4 mmol/L (3.5-5.1) L 03/07/22 06:50 Chloride 105 mmol/L (98-107) 03/07/22 06:50 Carbon Dioxide 24.0 mmol/L (21.0-32.0) 03/07/22 06:50 Anion Gap 6 (5-15) 03/07/22 06:50 BUN 13 mg/dL (7-18) 03/07/22 06:50 Creatinine 0.96 mg/dL (0.70-1.30) 03/07/22 06:50 Est GFR (MDRD) Af Amer 101 mL/min (>60) 03/07/22 06:50 Est GFR (MDRD) Non-Af 83 mL/min (>60) 03/07/22 06:50 BUN/Creatinine Ratio 13.6 RATIO (10-20) 03/07/22 06:50 Glucose 84 mg/dL (74-106) 03/07/22 06:50 Vancomycin Trough 11.6 ug/mL (5.0-15.0) 03/07/22 06:50 Microbiology: Microbiology 03/04/22 18:15 Blood Culture (Wb) - Anticubital Right Blood Culture - Preliminary No growth in 48 hours. 03/04/22 18:45 Blood Culture (Wb) - Left Wrist Blood Culture - Preliminary No growth in 48 hours. 03/06/22 20:00 Sputum, Expectorated/Coughed Gram Stain - Preliminary 03/06/22 20:00 Sputum, Expectorated/Coughed Respiratory Culture - Final 03/05/22 12:18 Stool Enteric Bacteriology - Final 03/05/22 12:18 Stool C. difficile DNA Amplification - Final 03/04/22 21:35 Mucosa - Nasopharyngeal Respiratory Panel (PCR) - Final 03/04/22 12:15 Nasal Secretion SARS-CoV-2 Antigen (Rapid) - Final Weight used for dosin.9 kg Estimated Creatinine Clearance: 67ml/min Goal Trough: 15-20 mcg/mL Pharmacy Plan for Drug Dosing: Trough this AM (11.6, ~12hrs post dose) was below desired range of 15-20mcg/ml. SCr 0.96 with CrCl ~67ml/min. Will increase dose to 1250mg iv q12h per protocol. Another trough level ordered for before 4th dose of this new dosing schedule. Pharmacy Service will continue to monitor and adjust dosing as required. Follow-Up Labs: Trough Vancomycin - 7.3.22 @0630 before 0700 dose
[2022-03-07 10:13] LABS: Pathologist Review Reviewed
[2022-03-07] MEDS: Flecainide 150 MG Tablet PO ×2 (10:51→23:09)
[2022-03-07] MEDS: Furosemide 20 MG Tablet PO ×2 (10:51→17:00)
[2022-03-07] MEDS: Allopurinol 300 MG Tablet PO (10:51)
[2022-03-07] MEDS: Metoprolol Tartrate 50 MG Tablet PO ×2 (10:51→23:09)
[2022-03-07] MEDS: Lisinopril 40 MG Tablet PO (10:51)
[2022-03-07] MEDS: Pyridoxine HCl 100 MG Tablet PO (10:52)
[2022-03-07] MEDS: amLODIPine 10 MG Tablet PO (10:52)
[2022-03-07] MEDS: Potassium Chloride Oral Tablet 20 MEQ PO (10:52)
--- NOTE | 2022-03-07 19:19 | PN.HOSP_ITS ---
Subjective Subjective Patient was seen and examined today, he remains severely neutropenic, his last documented temperature was 101 on 03/06/2022 at 7:58 PM. I talked briefly with the patient's daughter who was in the room at the time my examination today, we still have not received confirmation of the bed at [facility] for the pa maritza. Objective Data Objective Data Vital Signs: Vital Signs Temp Pulse Resp BP Pulse Ox O2 Del Method FiO2 97.8 F 65 18 105/57 L 97 CPAP 21 03/07/22 14:45 03/07/22 15:00 03/07/22 14:45 03/07/22 14:45 03/07/22 14:45 03/07/22 15:06 03/05/22 03:00 Oxygen Delivery Method CPAP Weight: 100.9 kg Body Mass Index (BMI) 34.3 Intake & Output: Intake and Output for Last 24 Hours 03/05/22 03/06/22 03/07/22 23:59 23:59 23:59 Intake Total 4033.33 / 4033.33 4481.67 / 4601.67 2596.66 / 2596.66 Output Total 100 / 100 Balance 4033.33 / 4033.33 4481.67 / 4501.67 2496.66 / 2496.66 Lab / Micro Data Result Diagrams: 03/07/22 06:50 03/07/22 06:50 Labs: Laboratory Results - last 24 hr 03/06/22 06:25: Diff Path Review Reviewed 03/07/22 06:50: WBC 0.2 L*, RBC 2.49 L, Hgb 8.4 L, Hct 24.9 L, MCV 100.0 H, MCH 33.7 H, MCHC 33.7, RDW Std Deviation 70.6 H, RDW Coeff of Lily 19.1 H, Plt Count 39 L*, MPV 10.8, Immature Gran % (Auto) 0.000, Neut % (Auto) 0.0 L, Lymph % (Auto) 90.0 H, [place] % (Auto) 10.0, Eos % (Auto) 0.0, Baso % (Auto) 0.0, Absolute Neuts (auto) 0.0 L, Absolute Lymphs (auto) 0.18 L, Nucleated RBC % 0, Differential Comment , Diff Path Review May foll, Platelet Estimate MKD DEC, RBC Morphology N CHROM, Anisocytosis 1+ 03/07/22 06:50: Sodium 135 L, Potassium 3.4 L, Chloride 105, Carbon Dioxide 24. 0, Anion Gap 6, BUN 13, Creatinine 0.96, Estim Creat Clear Calc 67.38, Est GFR (MDRD) Af Amer 101, Est GFR (MDRD) Non-Af 83, BUN/Creatinine Ratio 13.6, Glucose 84, Calcium 7.7 L 03/07/22 06:50: Vancomycin Trough 11.6 Micro: Microbiology 03/06/22 20:00 Sputum, Expectorated/Coughed Gram Stain - Final 03/06/22 20:00 Sputum, Expectorated/Coughed Respiratory Culture - Final 03/05/22 16:43 Urine, Clean Catch Urine Culture - Preliminary Culture exhibits no growth. 03/04/22 18:15 Blood Culture (Wb) - Anticubital Right Blood Culture - Preliminary No growth in 48 hours. 03/04/22 18:45 Blood Culture (Wb) - Left Wrist Blood Culture - Preliminary No growth in 48 hours. 03/05/22 12:18 Stool Enteric Bacteriology - Final 03/05/22 12:18 Stool C. difficile DNA Amplification - Final 03/04/22 21:35 Mucosa - Nasopharyngeal Respiratory Panel (PCR) - Final 03/04/22 12:15 Nasal Secretion SARS-CoV-2 Antigen (Rapid) - Final Physical Exam Const alert, oriented x3 and no apparent distress General Appearance: cooperative, well kempt and well developed Orientation / Consciousness: awake, oriented to person, oriented to place and oriented to time HEENT normocephalic and moist oral mucous membranes Eyes PERRL, EOMs intact bilaterally and conjunctivae normal Neck nuchal rigidity, supple, no JVD, thyroid normal and no carotid bruits General: trachea midline Resp normal respiratory effort, no retractions, no use of accessory muscles and clear to auscultation bilaterally Auscultation: diminished lung sounds; Negative for crackles, rales, rhonchi or wheezes Cardio regular rate, regular rhythm, S1 normal heart sound, S2 normal heart sound, no murmurs, no rub and no gallops GI normal to inspection, nondistended, normoactive bowel sounds, soft to palpation, non-tender and non-distended; Negative for hepatosplenomegaly Extremity no clubbing, cyanosis or edema Skin no rashes or lesions noted General Skin Exam: no breakdown Neuro oriented x3, CN's II-XII intact bilaterally, no focal motor deficits and no sensory deficits noted Sensorium / Orientation: awake and alert Speech: speech normal Psych affect normal Appearance: appropriate Assessment & Plan Assessment/Plan (1) Pancytopenia: PLAN: Plan 1. Acute pancytopenia-etiology unclear at this point, monitor CBC, patient remains on antibiotics at this time, we are awaiting transfer to [facility] in [facility] for further care. #2 neutropenic fever-due to the patient's severe pancytopenia, he remains on IV antibiotics #3 essential hypertension-patient is currently on Norvasc, lisinopril, and furosemide #4 hyperlipidemia-patient is on Lipitor #5 paroxysmal atrial fibrillation-patient is currently on Tambocor #6 obstructive sleep apnea-patient uses CPAP nightly #7 hypokalemia-patient's potassium today was 3.4, I do not think this is significant. BMP will be repeated tomorrow Charges/Coding Visit Charges Inpatient E&M: 22684 Subs Hosp L2
[2022-03-07] MEDS: Atorvastatin Calcium 40 MG Tablet PO (23:09)
[2022-03-08] VITALS (12 sets, daily range): BP systolic 110–126; BP diastolic 59–74; PULSE 59–72; RESP 16–18; TEMP 36.3–38.1; O2SAT 94–97
[2022-03-08] MEDS: 0.9% Normal Saline 1,000 ML 100 ML IV ×2 (04:48→16:45)
[2022-03-08 06:51] LABS: Absolute Lymphocyte Count 0.21 X10^3/uL (0.83-4.51); Hematocrit 21.7 % (40-54); Hemoglobin 7.4 g/dL (13.0-16.5); Lymphocyte # 0.21 X10^3/ul (0.83-4.51); Mean Corp Hgb Conc 34.1 g/dL (32-36); Mean Corpuscular Hgb 33.5 pg (27.0-32.0); Mean Corpuscular Volume 98.2 fL (80-94); Mean Platelet Vol. 10.4 fl (6.2-12.0); Monocyte# 0.02 X10^3/uL; NRBC Flagged by Analyzer 0 % (0-5); Neutrophil # 0.02 X10^3/uL (2.7-7.7); POSITIVE COUNT YES; POSITIVE DIFFERENTIAL YES; POSITIVE MORPHOLOGY YES; RBC Distribution Width CV 18.7 % (11.6-14.6); RBC Distribution Width SD 68.8 fl (35.1-43.9); Red Blood Count 2.21 M/mm3 (4.6-6.2); White Blood Count 0.3 K/mm3 (4.4-11.0)
[2022-03-08 06:57] LABS: Differential Indicated SCAN CRITERIA MET; Platelet Count 34 K/mm3 (150-450)
[2022-03-08 07:15] LABS: Differential Comment SCANNED
[2022-03-08 07:18] LABS: Anion Gap 8 (5-15); BUN 11 mg/dL (7-18); BUN/Creat Ratio 12.6 RATIO (10-20); Calcium,Total 7.5 mg/dL (8.5-10.1); Chloride 102 mmol/L (98-107); Creatinine, Serum 0.87 mg/dL (0.70-1.30); EST Glomerular Filtration Rate 93 mL/min (>60); Est Glom Filt Rate - Afr Amer 113 mL/min (>60); Estimated Creatinine Clearance 74.35 ml/min; Glucose 87 mg/dL (74-106); Sodium Level 134 mmol/L (136-145)
[2022-03-08] MEDS: Allopurinol 300 MG Tablet PO (09:25)
[2022-03-08] MEDS: Potassium Chloride Oral Tablet 20 MEQ PO ×2 (09:25→18:33)
[2022-03-08] MEDS: Lisinopril 40 MG Tablet PO (10:10)
[2022-03-08] MEDS: Pyridoxine HCl 100 MG Tablet PO (10:10)
[2022-03-08] MEDS: Furosemide 20 MG Tablet PO ×2 (10:10→18:33)
[2022-03-08] MEDS: Metoprolol Tartrate 50 MG Tablet PO ×2 (10:10→21:39)
[2022-03-08] MEDS: Flecainide 150 MG Tablet PO ×2 (10:11→21:39)
[2022-03-08] MEDS: amLODIPine 10 MG Tablet PO (10:11)
[2022-03-08] MEDS: Loperamide 2 MG Capsule 4 MG PO (14:08)
[2022-03-08] MEDS: Potassium Chloride Oral Tablet 20 MEQ 40 MEQ PO (15:56)
[2022-03-08] MEDS: Acetaminophen 325 MG Tablet 650 MG PO (16:51)
[2022-03-08] MEDS: Atorvastatin Calcium 40 MG Tablet PO (21:38)
[2022-03-09] VITALS (9 sets, daily range): BP systolic 102–120; BP diastolic 60–68; PULSE 60–69; RESP 16–18; TEMP 36.4–36.9; O2SAT 94–98
[2022-03-09] MEDS: 0.9% Normal Saline 1,000 ML 100 ML IV (05:12)
[2022-03-09 06:07] LABS: Absolute Lymphocyte Count 0.16 X10^3/uL (0.83-4.51); Hematocrit 20.5 % (40-54); Hemoglobin 7.1 g/dL (13.0-16.5); Lymphocyte # 0.16 X10^3/ul (0.83-4.51); Lymphocyte % 88.9 % (19-41); Mean Corp Hgb Conc 34.6 g/dL (32-36); Mean Corpuscular Hgb 33.8 pg (27.0-32.0); Mean Corpuscular Volume 97.6 fL (80-94); Mean Platelet Vol. 9.6 fl (6.2-12.0); Monocyte# 0.01 X10^3/uL; Monocyte% 5.6 % (0-10); NRBC Flagged by Analyzer 0 % (0-5); Neutrophil # 0.01 X10^3/uL (2.7-7.7); Neutrophil % 5.5 % (47-70); POSITIVE COUNT YES; POSITIVE DIFFERENTIAL YES; POSITIVE MORPHOLOGY YES; RBC Distribution Width CV 18.6 % (11.6-14.6); RBC Distribution Width SD 66.9 fl (35.1-43.9)
[2022-03-09 06:11] LABS: Differential Indicated SCAN CRITERIA MET; Platelet Count 33 K/mm3 (150-450); White Blood Count 0.2 K/mm3 (4.4-11.0)
--- NOTE | 2022-03-09 06:22 | NURSING ---
all documentation completed by Breanne Menjivar RN reviewed by this RN
[2022-03-09 06:41] LABS: Vancomycin, Trough Level 14.3 ug/mL (5.0-15.0)
[2022-03-09 06:43] LABS: Anisocytosis 1+; Differential Comment SCANNED; Hypochromasia 1+; Microcytosis 1+; Ovalocyte RARE; Platelet Estimate MKD DEC (ADEQ)
--- NOTE | 2022-03-09 07:13 | PCM.RX.CS ---
Consult Pharmacy has been consulted to manage selected antiobiotic: Vancomycin Type of Consult: Follow-up Prior Doses of Antibiotics Received/Current Regimen: current dose is 1250mg IV q12h Labs: Sodium 134 mmol/L (136-145) L 03/08/22 06:20 Potassium 3.0 mmol/L (3.5-5.1) L 03/08/22 06:20 Chloride 102 mmol/L (98-107) 03/08/22 06:20 Carbon Dioxide 24.0 mmol/L (21.0-32.0) 03/08/22 06:20 Anion Gap 8 (5-15) 03/08/22 06:20 BUN 11 mg/dL (7-18) 03/08/22 06:20 Creatinine 0.87 mg/dL (0.70-1.30) 03/08/22 06:20 Est GFR (MDRD) Af Amer 113 mL/min (>60) 03/08/22 06:20 Est GFR (MDRD) Non-Af 93 mL/min (>60) 03/08/22 06:20 BUN/Creatinine Ratio 12.6 RATIO (10-20) 03/08/22 06:20 Glucose 87 mg/dL (74-106) 03/08/22 06:20 Vancomycin Trough 14.3 ug/mL (5.0-15.0) 03/09/22 05:55 Microbiology: Microbiology 03/05/22 16:43 Urine, Clean Catch Urine Culture - Final Mixed Gram Positive Organisms 03/06/22 20:00 Sputum, Expectorated/Coughed Gram Stain - Final 03/06/22 20:00 Sputum, Expectorated/Coughed Respiratory Culture - Final 03/04/22 18:15 Blood Culture (Wb) - Anticubital Right Blood Culture - Preliminary No growth in 48 hours. 03/04/22 18:45 Blood Culture (Wb) - Left Wrist Blood Culture - Preliminary No growth in 48 hours. 03/05/22 12:18 Stool Enteric Bacteriology - Final 03/05/22 12:18 Stool C. difficile DNA Amplification - Final 03/04/22 21:35 Mucosa - Nasopharyngeal Respiratory Panel (PCR) - Final 03/04/22 12:15 Nasal Secretion SARS-CoV-2 Antigen (Rapid) - Final Weight used for dosin.1 kg Estimated Creatinine Clearance: 74ml/min Goal Trough: 15-20 mcg/mL Pharmacy Plan for Drug Dosing: The vanc trough drawn at 05:55 today (approx 11.5 hours after the previous dose) was 14.3. This is close to goal range and has risen since the last dose increase so will keep same dose for now. Repeat another trough in 2 days per protocol. Pharmacy Service will continue to monitor and adjust dosing as required. Follow-Up Labs: Trough Vancomycin Labs to be done on [date and time ordered]: 03/11/22 06:30
[2022-03-09] MEDS: Allopurinol 300 MG Tablet PO (08:41)
[2022-03-09] MEDS: Potassium Chloride Oral Tablet 20 MEQ PO (08:41)
--- NOTE | 2022-03-09 10:29 | PCM.PN.HOSP ---
Subjective Subjective The date of this note is 03/08/2022: Patient was seen and examined today, I called [facility] today to try to get an update on his transfer situation, the transfer person told me that they expected discharges on Thursday, they are aware that the patient is a high priority to be transferred there, the fact that he needs a single room is making it more difficult to find him a bed. I talked to the who was present at the time of my exam today. Objective Data Objective Data Vital Signs: Vital Signs Temp Pulse Resp BP Pulse Ox O2 Del Method FiO2 97.6 F L 60 16 102/68 97 CPAP 21 03/09/22 08:37 03/09/22 08:37 03/09/22 08:37 03/09/22 08:37 03/09/22 08:37 03/09/22 08:44 03/05/22 03:00 Oxygen Delivery Method CPAP Weight: 99.1 kg Body Mass Index (BMI) 34.3 Intake & Output: Intake and Output for Last 24 Hours 03/07/22 03/08/22 03/09/22 23:59 23:59 23:59 Intake Total 2931.66 / 2931.66 3398.34 / 3398.34 1283.33 / 1283.33 Output Total 100 / 100 1800 / 2600 1525 / 1525 Balance 2831.66 / 2831.66 1598.34 / 798.34 -241.67 / -241.67 Lab / Micro Data Result Diagrams: 03/09/22 05:55 03/08/22 06:20 Labs: Laboratory Results - last 24 hr 03/09/22 05:55: WBC 0.2 L*, RBC 2.10 L, Hgb 7.1 L, Hct 20.5 L, MCV 97.6 H, MCH 33.8 H, MCHC 34.6, RDW Std Deviation 66.9 H, RDW Coeff of Lily 18.6 H, Plt Count 33 L*, MPV 9.6, Immature Gran % (Auto) 0.000, Neut % (Auto) 5.5 L, Lymph % (Auto) 88.9 H, [place] % (Auto) 5.6, Eos % (Auto) 0.0, Baso % (Auto) 0.0, Absolute Neuts (auto) 0.0 L, Absolute Lymphs (auto) 0.16 L, Nucleated RBC % 0, Differential Comment SCANNED, Diff Path Review May foll, Platelet Estimate MKD DEC, Hypochromasia 1+, Anisocytosis 1+, Microcytosis 1+, Ovalocytes RARE 03/09/22 05:55: Vancomycin Trough 14.3 Micro: Microbiology 03/05/22 16:43 Urine, Clean Catch Urine Culture - Final Mixed Gram Positive Organisms 03/06/22 20:00 Sputum, Expectorated/Coughed Gram Stain - Final 03/06/22 20:00 Sputum, Expectorated/Coughed Respiratory Culture - Final 03/04/22 18:15 Blood Culture (Wb) - Anticubital Right Blood Culture - Preliminary No growth in 48 hours. 03/04/22 18:45 Blood Culture (Wb) - Left Wrist Blood Culture - Preliminary No growth in 48 hours. 03/05/22 12:18 Stool Enteric Bacteriology - Final 03/05/22 12:18 Stool C. difficile DNA Amplification - Final 03/04/22 21:35 Mucosa - Nasopharyngeal Respiratory Panel (PCR) - Final 03/04/22 12:15 Nasal Secretion SARS-CoV-2 Antigen (Rapid) - Final Physical Exam Const alert, oriented x3, no apparent distress and healthy appearing General Appearance: cooperative, well kempt and well developed Orientation / Consciousness: awake, oriented to person, oriented to place and oriented to time HEENT normocephalic, head/scalp atraumatic and moist oral mucous membranes Head and Scalp: normocephalic Eyes PERRL, EOMs intact bilaterally and conjunctivae normal Neck supple, no JVD, thyroid normal and no carotid bruits General: trachea midline Resp normal respiratory effort, no retractions, no use of accessory muscles and clear to auscultation bilaterally Auscultation: diminished lung sounds; Negative for crackles, rales, rhonchi or wheezes Cardio regular rate, regular rhythm, S1 normal heart sound, S2 normal heart sound, no murmurs, no rub and no gallops GI normal to inspection, nondistended, normoactive bowel sounds, soft to palpation, non-tender and non-distended; Negative for hepatosplenomegaly Extremity normal to inspection and no clubbing, cyanosis or edema Skin no rashes or lesions noted General Skin Exam: no breakdown Neuro oriented x3, CN's II-XII intact bilaterally, no focal motor deficits and no sensory deficits noted Sensorium / Orientation: awake, alert, oriented to person, oriented to place and oriented to time Speech: speech normal Psych affect normal Appearance: appropriate Assessment & Plan Assessment/Plan (1) Pancytopenia: PLAN: Plan 1. Acute pancytopenia-etiology unclear at this point, monitor CBC, patient remains on antibiotics at this time, we are awaiting transfer to [facility] in [facility] for further care. Patient remains pancytopenic at this time. At the time of this dictation (Thursday morning) patient has been afebrile overnight. #2 neutropenic fever-due to the patient's severe pancytopenia, he remains on IV antibiotics #3 essential hypertension-patient is currently on Norvasc, lisinopril, and furosemide #4 hyperlipidemia-patient is on Lipitor #5 paroxysmal atrial fibrillation-patient is currently on Tambocor #6 obstructive sleep apnea-patient uses CPAP nightly #7 hypokalemia-patient's potassium today was 3, patient was given supplemental potassium. I will increase patient's daily program potassium. Charges/Coding Visit Charges Inpatient E&M: 47297 Subs Hosp L2
--- NOTE | 2022-03-09 10:33 | PN.HOSP_ITS ---
Subjective Subjective Patient was seen and examined today, he had a temperature spike yesterday of 100.5 at 5:47 PM. Patient has no complaints of any fevers or chills today, his is in the room and I talked with her briefly. We have not heard from [facility] concerning a bed available for the patient at this time. Objective Data Objective Data Vital Signs: Vital Signs Temp Pulse Resp BP Pulse Ox O2 Del Method FiO2 97.6 F L 60 16 102/68 97 CPAP 21 03/09/22 08:37 03/09/22 08:37 03/09/22 08:37 03/09/22 08:37 03/09/22 08:37 03/09/22 08:44 03/05/22 03:00 Oxygen Delivery Method CPAP Weight: 99.1 kg Body Mass Index (BMI) 34.3 Intake & Output: Intake and Output for Last 24 Hours 03/07/22 03/08/22 03/09/22 23:59 23:59 23:59 Intake Total 2931.66 / 2931.66 3398.34 / 3398.34 1283.33 / 1283.33 Output Total 100 / 100 1800 / 2600 1525 / 1525 Balance 2831.66 / 2831.66 1598.34 / 798.34 -241.67 / -241.67 Lab / Micro Data Result Diagrams: 03/09/22 05:55 03/08/22 06:20 Labs: Laboratory Results - last 24 hr 03/09/22 05:55: WBC 0.2 L*, RBC 2.10 L, Hgb 7.1 L, Hct 20.5 L, MCV 97.6 H, MCH 33.8 H, MCHC 34.6, RDW Std Deviation 66.9 H, RDW Coeff of Lily 18.6 H, Plt Count 33 L*, MPV 9.6, Immature Gran % (Auto) 0.000, Neut % (Auto) 5.5 L, Lymph % (Auto) 88.9 H, [place] % (Auto) 5.6, Eos % (Auto) 0.0, Baso % (Auto) 0.0, Absolute Neuts (auto) 0.0 L, Absolute Lymphs (auto) 0.16 L, Nucleated RBC % 0, Differential Comment SCANNED, Diff Path Review May komal, Platelet Estimate MKD DEC, Hypochromasia 1+, Anisocytosis 1+, Microcytosis 1+, Ovalocytes RARE 03/09/22 05:55: Vancomycin Trough 14.3 Micro: Microbiology 03/05/22 16:43 Urine, Clean Catch Urine Culture - Final Mixed Gram Positive Organisms 03/06/22 20:00 Sputum, Expectorated/Coughed Gram Stain - Final 03/06/22 20:00 Sputum, Expectorated/Coughed Respiratory Culture - Final 03/04/22 18:15 Blood Culture (Wb) - Anticubital Right Blood Culture - Preliminary No growth in 48 hours. 03/04/22 18:45 Blood Culture (Wb) - Left Wrist Blood Culture - Preliminary No growth in 48 hours. 03/05/22 12:18 Stool Enteric Bacteriology - Final 03/05/22 12:18 Stool C. difficile DNA Amplification - Final 03/04/22 21:35 Mucosa - Nasopharyngeal Respiratory Panel (PCR) - Final 03/04/22 12:15 Nasal Secretion SARS-CoV-2 Antigen (Rapid) - Final Physical Exam Const alert, oriented x3, no apparent distress and healthy appearing General Appearance: cooperative, well kempt and well developed Orientation / Consciousness: awake, oriented to person, oriented to place and o riented to time HEENT normocephalic, head/scalp atraumatic and moist oral mucous membranes Eyes PERRL, EOMs intact bilaterally and conjunctivae normal Neck supple, no JVD and thyroid normal General: trachea midline Resp normal respiratory effort, no retractions, no use of accessory muscles and clear to auscultation bilaterally Auscultation: diminished lung sounds; Negative for crackles, rales, rhonchi or wheezes Cardio regular rate, regular rhythm, S1 normal heart sound, S2 normal heart sound, no murmurs, no rub and no gallops GI normal to inspection, nondistended, normoactive bowel sounds, soft to palpation, non-tender and non-distended; Negative for hepatosplenomegaly Extremity normal to inspection and no clubbing, cyanosis or edema Skin no rashes or lesions noted General Skin Exam: no breakdown Neuro oriented x3, CN's II-XII intact bilaterally, no focal motor deficits and no sensory deficits noted Sensorium / Orientation: awake, alert, oriented to person, oriented to place and oriented to time Speech: speech normal Psych affect normal Appearance: appropriate Assessment & Plan Assessment/Plan (1) Pancytopenia: PLAN: Plan 1. Acute pancytopenia-etiology unclear at this point, monitor CBC, patient remains on antibiotics at this time, we are awaiting transfer to [facility] in [facility] for further care. Patient remains pancytopenic at this time. Patient's hemoglobin is 7.1 today, again CBC will be rechecked tomorrow #2 neutropenic fever-due to the patient's severe pancytopenia, he remains on IV antibiotics #3 essential hypertension-patient is currently on Norvasc, lisinopril, and furosemide #4 hyperlipidemia-patient is on Lipitor #5 paroxysmal atrial fibrillation-patient is currently on Tambocor #6 obstructive sleep apnea-patient uses CPAP nightly #7 hypokalemia-I did not recheck the patient's potassium today, BMP will be ordered tomorrow Charges/Coding Visit Charges Inpatient E&M: 03272 Subs Hosp L2
[2022-03-09] MEDS: Furosemide 20 MG Tablet PO (10:41)
[2022-03-09] MEDS: Lisinopril 40 MG Tablet PO (10:41)
[2022-03-09] MEDS: Pyridoxine HCl 100 MG Tablet PO (10:41)
[2022-03-09] MEDS: Loperamide 2 MG Capsule 4 MG PO (10:41)
[2022-03-09] MEDS: Flecainide 150 MG Tablet PO (10:41)
[2022-03-09] MEDS: amLODIPine 10 MG Tablet PO (10:41)
[2022-03-09] MEDS: Metoprolol Tartrate 50 MG Tablet PO (10:41)
--- NOTE | 2022-03-09 14:27 | NURSING ---
RN attempted to call report to [facility] RN for patient transfer. RN unavailable to take call at this time and will call this RN back.
--- NOTE | 2022-03-09 14:32 | PCM.DC.SUM ---
Providers Date of Admission: 03/04/22 Date of Discharge: 03/09/22 Primary Care Physician: Dr. Willis Fish MD Consultations 03/04/22 21:41 Consult: Oncology/Hematology Routine Consulting Provider: Helen Mariee Reason for Consult: ? AML, recent doxy, no bed [facility] but on list, attempted [facility] also no beds EMERGENT Consult: No MD Notified: Yes Date Notified: 03/04/22 Time Notified: 21:01 Method of Notification: ED Physician Initiated Reason For Visit: PANCYTOPENIA, NEUTROPENIC FEVER Diagnosis Discharge Diagnosis (1) Pancytopenia: Status: Acute Code(s): D61.818 - Other pancytopenia Plan 1. Acute pancytopenia-etiology unclear #2 neutropenic fever #3 essential hypertension #4 hyperlipidemia #5 paroxysmal atrial fibrillation #6 obstructive sleep apnea #7 hypokalemia Medications at Discharge Home Medications allopurinol 300 mg tablet 300 mg PO DAILY gout 09/08/17 pyridoxine (vitamin B6) 100 mg tablet 100 mg PO DAILY SUPPLEMENT 04/05/20 tizanidine 4 mg tablet 4 mg PO QHS PRN muscle spasticity 04/05/20 flecainide 150 mg tablet 150 mg PO BID bp #180 tabs 04/08/21 atorvastatin 40 mg tablet 40 mg PO QHS cholesterol #90 tabs 05/20/21 amlodipine 10 mg tablet 10 mg PO DAILY BP 03/04/22 aspirin 81 mg tablet,delayed release (Adult Aspirin Regimen) 81 mg PO DAILY HEALTH 03/04/22 colchicine 0.6 mg tablet 0.3 mg PO BID GOUT 03/04/22 doxycycline hyclate 100 mg capsule 100 mg PO BID INFECTION 03/04/22 furosemide 40 mg tablet (Lasix) 20 mg PO BID FLUID 03/04/22 lisinopril 40 mg tablet 40 mg PO DAILY BP 03/04/22 loperamide 2 mg capsule (Imodium A-D) 2 mg PO Q4H PRN Diarrhea 03/04/22 metoprolol tartrate 50 mg tablet 50 mg PO BID HEART 03/04/22 potassium chloride 20 mEq tablet,extended release(part/cryst) (Klor-Con M) See Rx Instructions .Route .COMPLEX #270 TABLETS 03/07/22 Hospital Course Operations None Procedures None Summary of Care Provided Minutes Spent on Discharge: 32 Hospital Course: This 67-year-old white male was seen in the emergency room at [facility] following an unresponsive episode, patient had been complaining of extreme fatigue x2 weeks. He recently had been placed on doxycycline for a possible abscess on his left forearm. Patient complained of diarrhea also., He had blood work performed approximately week prior and he went to his doctor's office for follow-up and while sitting in a chair he had an unresponsive episode. This episode lasted around 30 seconds to a minute. Patient was confused briefly when he awoke. Labs were obtained in the emergency room, it revealed the patient was severely pancytopenic with a white count of 200, hemoglobin of 9.8, and a platelet count of 77,000. Patient's last CBC in November [address] showed chronic involutional changes within the brain, chest x-ray showed no acute abnormality. Oncology was contacted and recommended transfer to a tertiary facility, patient requested to [facility] but no beds were available and the patient was admitted to PCU, he was placed on antibiotics due to elevated temperature, and repeat labs were obtained daily on the patient. Patient remained pancytopenic during his entire admission, blood cultures were negative, enteric stool panel was unremarkable. Patient continued to have intermittent fevers while he was hospitalized, his vital signs however remained stable. On 03/09/2022, patient was seen and examined: On examination he appeared in good health and spirits. Vital signs as documented. Skin warm and dry and without overt rashes. Neck without JVD, neck was supple, trachea midline, thyroid was normal. Lungs clear bilaterally, normal air movement was noted. Heart exam notable for regular rhythm, normal sounds and absence of murmurs, rubs or gallops. Abdomen unremarkable and without evidence of organomegaly, masses, or abdominal aortic enlargement. Bowel sounds are present, abdomen is not distended. Extremities nonedematous, no cyanosis was noted, no clubbing was noted. Neuro: Cranial nerves II through XII are grossly intact, no focal motor deficits were noted, sensation to light touch and pinprick intact, motor exam 5/5 throughout. Psych: Patient is alert and oriented x3, he does not appear anxious or depressed, he does not appear agitated. Patient was transferred to [facility] in [place] on 03/09/2022 in stable condition when a bed was obtained on that day. Weight / BMI Weight Weight: 99.1 kg Body Mass Index (BMI) 34.3 ABG / Lab / Microbiology Data Result Diagrams: 03/09/22 05:55 03/08/22 06:20 Laboratory: Laboratory Results - last 24 hr 03/09/22 05:55: WBC 0.2 L*, RBC 2.10 L, Hgb 7.1 L, Hct 20.5 L, MCV 97.6 H, MCH 33.8 H, MCHC 34.6, RDW Std Deviation 66.9 H, RDW Coeff of Lily 18.6 H, Plt Count 33 L*, MPV 9.6, Immature Gran % (Auto) 0.000, Neut % (Auto) 5.5 L, Lymph % (Auto) 88.9 H, [place] % (Auto) 5.6, Eos % (Auto) 0.0, Baso % (Auto) 0.0, Absolute Neuts (auto) 0.0 L, Absolute Lymphs (auto) 0.16 L, Nucleated RBC % 0, Differential Comment SCANNED, Diff Path Review May foll, Platelet Estimate MKD DEC, Hypochromasia 1+, Anisocytosis 1+, Microcytosis 1+, Ovalocytes RARE 03/09/22 05:55: Vancomycin Trough 14.3 Microbiology: Microbiology 03/05/22 16:43 Urine, Clean Catch Urine Culture - Final Mixed Gram Positive Organisms 03/06/22 20:00 Sputum, Expectorated/Coughed Gram Stain - Final 03/06/22 20:00 Sputum, Expectorated/Coughed Respiratory Culture - Final 03/04/22 18:15 Blood Culture (Wb) - Anticubital Right Blood Culture - Preliminary No growth in 48 hours. 03/04/22 18:45 Blood Culture (Wb) - Left Wrist Blood Culture - Preliminary No growth in 48 hours. 03/05/22 12:18 Stool Enteric Bacteriology - Final 03/05/22 12:18 Stool C. difficile DNA Amplification - Final 03/04/22 21:35 Mucosa - Nasopharyngeal Respiratory Panel (PCR) - Final 03/04/22 12:15 Nasal Secretion SARS-CoV-2 Antigen (Rapid) - Final Meaningful Use Info Meaningful Use Diagnoses (Choose all that apply): None applicable Discharge Plan Admission Admit Date/Time: 03/04/22 15:17 Primary Reason for Your Visit: Pancytopenia Attending Provider: Douglas Abdullahi Primary Care Provider: Willis Fish Consulting Providers: Helen Mariee ; Marcelle Phillips ; Waldo Sears Discharge Orders/Prescriptions Prescriptions: No Action pyridoxine (vitamin B6) 100 mg tablet 100 mg PO DAILY tizanidine 4 mg tablet 4 mg PO QHS PRN (Reason: muscle spasticity) allopurinol 300 MG tablet 300 mg PO DAILY doxycycline hyclate 100 mg capsule 100 mg PO BID Label Comments: FILLED 02/24/22 X10 DAY SUPPLY loperamide [Imodium A-D] 2 mg Capsule 2 mg PO Q4H PRN (Reason: Diarrhea) Rx Instructions: administer after each loose stool until symptoms controlled; do not exceed 8 mg per 24 hrs amlodipine 10 mg tablet 10 mg PO DAILY Label Comments: TAKE 1 TABLET BY MOUTH EVERY DAY colchicine 0.6 mg tablet 0.3 mg PO BID furosemide [Lasix] 40 mg tablet 20 mg PO BID aspirin [Adult Aspirin Regimen] 81 mg tablet,delayed release (DR/EC) 81 mg PO DAILY metoprolol tartrate 50 mg tablet 50 mg PO BID lisinopril 40 mg tablet 40 mg PO DAILY flecainide 150 mg tablet 150 mg PO BID Qty: 180 3RF atorvastatin 40 mg tablet 40 mg PO QHS Qty: 90 3RF potassium chloride [Klor-Con M20] 20 mEq tablet,ER particles/crystals See Rx Instructions .ROUTE .COMPLEX Qty: 270 3RF Dose Instruction: TAKE 1 TABLET 3 TIMES A DAY Rx Instructions: TAKE 1 TABLET 3 TIMES A DAY Referrals / Follow Up: Willis Fish MD [Primary Care Provider] - Disposition Disposition (needs filled in before D/C Order can be placed): Acute Care Hospital Charges/Coding Visit Charges Inpatient E&M: 73745 Disch Hosp
--- NOTE | 2022-03-09 14:45 | NURSING ---
at bedside updated that pt has bed at [facility] Main campus and transportation filler picker time of approximately 1500. Spouse is taking all belongings home.
--- NOTE | 2022-03-09 15:29 | NURSING ---
Report called to CECI Vivas at [facility] [place] at 1520. Pt being transported with two peripheral IVs saline locked.
[2022-03-11 13:58] LABS: Pathologist Review Reviewed
[2022-03-11 13:58] LABS: Pathologist Review Reviewed
[2022-03-11 13:58] LABS: Pathologist Review Reviewed
== END 2022-03-09 15:38 | disposition short-term general hospital (02) | DRG 809 ==
LOC: ED 14:56 → PCU 15:48 → ED 19:56 → PCU 21:49
PROVIDERS: Emergency Medicine; Family Medicine; Admitting Provider Family Medicine; Emergency Provider Emergency Medicine; PCP Family Medicine; Visit Provider Internal Medicine
DX: D61.818 Other pancytopenia (principal); I50.22 Chronic systolic (congestive) heart failure; L02.414 Cutaneous abscess of left upper limb; D70.9 Neutropenia, unspecified; I11.0 Hypertensive heart disease with heart failure; I48.0 Paroxysmal atrial fibrillation; K21.9 Gastro-esophageal reflux disease without esophagitis; E78.5 Hyperlipidemia, unspecified; I25.10 Atherosclerotic heart disease of native coronary artery without angina pectoris; E87.6 Hypokalemia; R19.7 Diarrhea, unspecified; G47.33 Obstructive sleep apnea (adult) (pediatric); R50.81 Fever presenting with conditions classified elsewhere; Z87.891 Personal history of nicotine dependence; Z95.0 Presence of cardiac pacemaker; E66.9 Obesity, unspecified
CPT/HCPCS: 36415; 70450; 71045; 80048; 80053; 80202; 81001; 83605; 84145; 84443; 84484; 85025; 85610; 85730; 87040; 87086; 87088; 87205; 87493; 87506; 87633; 87641; 87811; 93005; 94660; 94762; 95819; 99251; 99285; J7030; J7040; J7050; A4216; G0463

== ENCOUNTER → 2022-04-03 | Outpatient (CLI) | payer OTHER, SELFPAY ==
--- NOTE | 2022-04-03 15:01 | VDLE_ITS ---
Reason For Study: swelling RIGHT LEFT GSV is normal. GSV is normal. CFV is compressible, spontaneous, phasic, CFV is compressible, spontaneous, phasic, competent and demonstrates normal competent, and demonstrates normal augmentation. augmentation. FV is compressible, spontaneous, phasic, FV is compressible, spontaneous, phasic, competent and demonstrates normal competent and demonstrates normal augmentation. augmentation. POP V is compressible, spontaneous, phasic, POP V is compressible, spontaneous, phasic, competent and demonstrates normal competent and demonstrates normal augmentation. augmentation. T/P Trunk is compressible. T/P Trunk is compressible. PTV is compressible. PTV, Peroneal V, and Soleus V are dilated and Peroneal V and Soleus V are dilated and noncompressible. noncompressible. Procedure This is a venous duplex using B-mode, color flow and spectral Doppler. Exam performed in department. The exam was diagnostic. A preliminary report was called and/or faxed to Dr. Greene's office. VL/Venous Duplex US - Lenny Extrem Interpretation Summary Acute deep vein thrombosis is noted in the right peroneal vein. Acute deep vein thrombosis is noted in the right soleus vein. The remainder of the right lower extremity deep venou s system is patent and compressible. Acute deep vein thrombosis is noted in the left posterior tib ial vein. Acute deep vein thrombosis is noted in the left peroneal vein. Acute deep vein thrombosis is noted in the left soleus vein. The remainder of the left lower extremity deep venous system is pa tent and compressible. Valvular competence is intact within the proximal deep venous sys tem bilaterally. The great saphenous veins are patent and compressible bilaterally. Ordering Physician: Daysi Greene Performed By: Ciro Cheung RVT
== END | disposition home or self-care (01) ==
LOC: CVS 14:59
PROVIDERS: PCP Family Medicine; Referring Provider Internal Medicine Hematology & Oncology; Visit Provider Internal Medicine Hematology & Oncology
DX: C92.00 Acute myeloblastic leukemia, not having achieved remission (principal); M79.89 Other specified soft tissue disorders
CPT/HCPCS: 93970

== ENCOUNTER → 2022-08-22 | Outpatient (CLI) | payer OTHER, SELFPAY ==
[2022-08-22] MEDS: 0.9% NaCl Peripheral Flush Adult/Peds IV ×2 (12:15→13:21)
[2022-08-22 12:16] VITALS: BP 97/61; PULSE 66; RESP 16; TEMP 37.1; O2SAT 98
[2022-08-22 12:51] VITALS: BP 89/52; PULSE 61; RESP 16; TEMP 36.6; O2SAT 98
[2022-08-22 13:33] VITALS: BP 91/60; PULSE 59
== END | disposition home or self-care (01) ==
LOC: MEDOUTP 12:00
PROVIDERS: PCP Family Medicine; Referring Provider Internal Medicine Hematology & Oncology; Visit Provider Internal Medicine Hematology & Oncology
DX: Z51.89 Encounter for other specified aftercare (principal); D69.6 Thrombocytopenia, unspecified
CPT/HCPCS: 36430; 86900; 86901; 86965; J7040; P9035; A4216

== ENCOUNTER → 2022-08-26 | Outpatient (CLI) | payer OTHER, SELFPAY ==
[2022-08-26] MEDS: 0.9 % NaCl (Sterile) Posiflush 10 mL IV (12:32)
[2022-08-26 12:44] VITALS: BP 84/48; PULSE 60; RESP 16; TEMP 37.3; O2SAT 98
[2022-08-26 13:13] VITALS: BP 96/53; PULSE 60; RESP 16; TEMP 37.3
[2022-08-26 14:00] VITALS: BP 87/47; PULSE 60; RESP 16; TEMP 37.3; O2SAT 99
[2022-08-26 14:03] VITALS: BP 91/49
== END | disposition home or self-care (01) ==
LOC: MEDOUTP 12:21
PROVIDERS: PCP Family Medicine; Referring Provider Internal Medicine Hematology & Oncology; Visit Provider Internal Medicine Hematology & Oncology
DX: C92.00 Acute myeloblastic leukemia, not having achieved remission (principal); D69.6 Thrombocytopenia, unspecified
CPT/HCPCS: 36430; 86644; 86900; 86901; 86965; J7040; P9035

== ENCOUNTER → 2022-08-29 | Outpatient (CLI) | payer OTHER, SELFPAY ==
[2022-08-29] VITALS (11 sets, daily range): BP systolic 84–124; BP diastolic 47–63; PULSE 60–74; RESP 16; TEMP 35.7–36.9; O2SAT 95–99; BMI 30.7
[2022-08-29] MEDS: Acetaminophen 325 MG Tablet 650 MG PO (08:23)
[2022-08-29] MEDS: 0.9% NaCl Peripheral Flush Adult/Peds IV (14:28)
== END | disposition home or self-care (01) ==
LOC: MEDOUTP 08:09
PROVIDERS: PCP Family Medicine; Referring Provider Internal Medicine Hematology & Oncology; Visit Provider Internal Medicine Hematology & Oncology
DX: Z51.89 Encounter for other specified aftercare (principal); C92.01 Acute myeloblastic leukemia, in remission; D61.818 Other pancytopenia
CPT/HCPCS: 36430; 86644; 86850; 86900; 86901; 86920; 86922; 86965; J7040; P9035; P9040; A4216

== ENCOUNTER → 2022-09-02 | Outpatient (CLI) | payer OTHER, SELFPAY | END | disposition home or self-care (01) | LOC: MEDOUTP 09-09 10:19 | PROVIDERS: PCP Family Medicine; Referring Provider Internal Medicine Hematology & Oncology; Visit Provider Internal Medicine Hematology & Oncology | DX: C92.00 Acute myeloblastic leukemia, not having achieved remission (principal); D61.818 Other pancytopenia | CPT/HCPCS: 86850; 86900; 86901; 86920 ==